=== PATIENT | male | born 1970 | race Caucasian/White ===

== ENCOUNTER → 2018-06-21 08:41 | Outpatient (CLI) | payer BC, SELFPAY ==
[2018-06-21 10:31] LABS: Hematocrit 45.1 % (40-54); Hemoglobin 15.2 g/dl (13.0-16.5); Mean Corp Hgb Conc 33.7 g/gl (32-36); Mean Corpuscular Volume 91.9 fL (80-94); Mean Platelet Vol. 9.6 fl (6.2-12.0); Platelet Count 242 K/mm3 (150-450); RBC Distribution Width CV 12.1 % (11.6-14.6); RBC Distribution Width SD 39.8 fl (35.1-43.9); Red Blood Count 4.91 M/mm3 (4.6-6.2); White Blood Count 8.8 K/mm3 (4.4-11.0)
[2018-06-21 10:33] LABS: Scan Indicated on CBC? Y/N NO
[2018-06-21 10:46] LABS: Microalbumin:Creatinine Ratio 41.1 mg/g CRE (<30 mg/g CRE)
[2018-06-21 11:15] LABS: ALB/GLOB Ratio 1.1 RATIO (0.9-2.4); AST(SGOT) 29 U/L (15-37); Alanine Aminotransfer ALT/SGPT 36 U/L (16-61); Albumin, Serum 4.1 g/dL (3.2-5.0); Alkaline Phosphatase 100 U/L (45-117); Anion Gap 14 (5-15); BUN 15 mg/dL (7-18); BUN/Creat Ratio 15.1 RATIO (10-20); Calcium,Total 9.4 mg/dL (8.5-10.1); Chloride 104 mmol/L (98-107); Cholesterol 182 mg/dL (200); EST Glomerular Filtration Rate 85 mL/min (>60); Est Glom Filt Rate - Afr Amer 103 mL/min (>60); Globulin 3.7 g/dL (2.2-4.2); Glucose 96 mg/dL (74-106); High Density Lipoprotein 63 mg/dL; Potassium 3.8 mmol/L (3.5-5.1); Protein, Total 7.8 g/dL (6.4-8.2); Sodium Level 140 mmol/L (136-145); Thyroid Stim Hormone (TSH) 3.14 uIU/mL (0.358-3.74); Triglycerides 172 mg/dL; Very Low Density Lipoprotein 34 mg/dL (5-40)
== END ==
PROVIDERS: Family Provider Family Medicine; PCP Family Medicine; Visit Provider Family Medicine
DX: D75.1 Secondary polycythemia (principal); E78.00 Pure hypercholesterolemia, unspecified; I10 Essential (primary) hypertension
CPT/HCPCS: 36415; 80053; 80061; 82043; 82570; 84443; 85027

== ENCOUNTER → 2020-05-23 | Outpatient (CLI) | payer OTHER, SELFPAY | END | disposition home or self-care (01) | LOC: LABSPEC 16:05 | PROVIDERS: PCP Family Medicine; Visit Provider Family Medicine | DX: Z20.822 Contact with and (suspected) exposure to COVID-19 (principal) | CPT/HCPCS: 87635; U0005; U0003 ==

== ENCOUNTER → 2020-06-15 09:23 | Outpatient (CLI) | payer OTHER, SELFPAY ==
[2020-06-15 12:51] LABS: ALB/GLOB Ratio 0.9 RATIO (0.9-2.4); AST(SGOT) 19 U/L (15-37); Alanine Aminotransfer ALT/SGPT 29 U/L (16-61); Albumin, Serum 3.5 g/dL (3.2-5.0); Alkaline Phosphatase 136 U/L (45-117); Anion Gap 10 (5-15); BUN 14 mg/dL (7-18); Calcium,Total 9.1 mg/dL (8.5-10.1); Chloride 104 mmol/L (98-107); Creatinine, Serum 0.93 mg/dL (0.70-1.30); EST Glomerular Filtration Rate 91 mL/min (>60); Est Glom Filt Rate - Afr Amer 111 mL/min (>60); Globulin 3.9 g/dL (2.2-4.2); Glucose 112 mg/dL (74-106); PSA,Total - Annual Screen 0.78 ng/mL (0.00-4.00); Potassium 3.8 mmol/L (3.5-5.1); Protein, Total 7.4 g/dL (6.4-8.2); Sodium Level 136 mmol/L (136-145)
[2020-06-15 12:58] LABS: Microalbumin,Random Urine 22.9 mg/L (NO RANGE EST.); Microalbumin:Creatinine Ratio 6.1 mg/g CRE (<30 mg/g CRE)
== END ==
PROVIDERS: PCP Family Medicine; Referring Provider Family Medicine; Visit Provider Family Medicine
DX: I10 Essential (primary) hypertension (principal); Z12.5 Encounter for screening for malignant neoplasm of prostate
CPT/HCPCS: 36415; 80053; 82043; 82570; 84153; G0103

== ENCOUNTER 2020-07-06 12:30 | Outpatient (RCR) | payer OTHER, SELFPAY ==
--- NOTE | 2020-06-26 11:04 | HP.PTEVAL_ITS ---
Patient's Visit Information LISBET MAYER is a 49 year old M referred to Physical Therapy by Dr. Jovanny Gillette MD with a diagnosis of R RC tendonitis (acute). Date of Evaluation: 06/26/20 Physical Therapist: AUBREY Escobedo - Visit Plan Frequency: 2x /Week Duration: 2 Months Plan: 2X/ week for 8 weeks for R shoulder PROm, AAROM, AROM, RC and scapular strengthening, postural exercises, with HEP and modalities as needed with HEP. 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 He can not pinpoint what happened but is progressivly getting worse. Heavy lifting increases pain, washing his hair. Sleeping increases his pain, he sleeps on back and side and tries not to lay on it. It hurts constantly.... it is sharp pain and dull pain. He has no N&T. He has not taken meds for it other than IBPROF. No images were done. He is R handed. He works at [employer]....and it is affecting what he does there. Pt had a RC repair in 2006 via arthoscopic surgery. 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 R shoulder AROM: flexion approx 80 degrees, abd approx 120 degrees ( both motions were painful), R PSIS, ER 29. L shoulder AROML SHLD flex/abd WFL, IR T8, ER 39. PROM R flexion to about 150 degrees, and abd to about 170 degrees, IR increase pain at end range and no pain with full ER. R shld MMT: flex 3-/5, abd 3-/4, ER 3-/5, IR 4/5 and L shld MMT WFL - Goals Goal 1:: I HEP Goal Time Frame: 6-8 Weeks Goal 2:: Increase R shoulder AROM to 160 degrees elvation and L4 IR (at time of eval: R shoulder AROM: flexion approx 80 degrees, abd approx 120 degrees ( both motions were painful), R PSIS, ER 29). Goal Time Frame: 6-8 Weeks Goal 3:: Increase R shoulder strength by 1/2 muscle grade (at time of eval: R shld MMT: flex 3-/5, abd 3-/4, ER 3-/5, IR 4/5). Goal Time Frame: 6-8 Weeks Goal 4:: Decrease R shoulder pain to less than 2/10 on daily basis with work and ADL's Goal Time Frame: 6-8 Weeks - Rehabilitation Potential Rehabilitation Potential: Good - Anticipated Interventions Patient/Client Instruction: Educate patient on: Condition, Plan of Care For the Purpose of:: To decrease pain, To decrease swelling/inflammation, To increase ROM, To improve nutrient delivery to tissue, To improve muscle performance and motor function, To improve ability to perform ADL's, To increase tolerance to activity/condition/position, To improve performance and independence with ADL's, To improve ability of physical actions for home/community/work/leisure, To improve health of tissue, To decrease soft tissue restriction, To increase flexibility/ROM Therapeutic Exercise to Include: Strength training, Postural training, Flexibilty training, Passive ROM, Active ROM, Scapular Strength/Stabilization For the Purpose of:: To decrease pain, To increase ROM, To improve nutrient delivery to tissue, To improve muscle performance and motor function, To improve ability to perform ADL's, To increase tolerance to activity/condition/position, To improve performance and independence with ADL's, To decrease level of supervision to perform tasks, To improve health of tissue, To decrease soft tissue restriction, To increase flexibility/ROM Manual Therapy Techniques to Include: Passive ROM, Soft tissue mobilization For the Purpose of:: To decrease pain, To increase ROM, To improve nutrient delivery to tissue, To improve muscle performance and motor function, To increase tolerance to activity/condition/position, To improve health of tissue, To decrease soft tissue restriction, To increase flexibility/ROM IF ES: Yes Cryotherapy (ice pack, ice massage): Yes Thermo therapy (hot pack): Yes Ultrasound (thermal/non thermal): Yes For the Purpose of:: To decrease pain, To increase ROM, To improve nutrient delivery to tissue Thank you for the opportunity to evaluate your patient. For Medicare and Medicare HMO plans, please review the plan of care and approve it. It will need to be FAXED BACK to us at [phone] for Medicare purposes. For Medicare only, by signing this I certify the plan of care. Please let me know if there are questions or concerns regarding this plan of care. Physician Signature: Date:
--- NOTE | 2021-01-25 09:48 | HP.PT.NRP ---
LISBET MAYER was seen in my office for initial evaluation on 06/26/20. The following Plan of Care was established for this patient: Initial Frequency: 2x /Week Initial Duration: 2 Months Patient/Client Instruction: Educate patient on: Condition, Plan of Care For the Purpose of:: To decrease pain, To decrease swelling/inflammation, To increase ROM, To improve nutrient delivery to tissue, To improve muscle performance and motor function, To improve ability to perform ADL's, To increase tolerance to activity/condition/position, To improve performance and independence with ADL's, To improve ability of physical actions for home/community/work/leisure, To improve health of tissue, To decrease soft tissue restriction, To increase flexibility/ROM Therapeutic Exercise to Include: Strength training, Postural training, Flexibilty training, Passive ROM, Active ROM, Scapular Strength/Stabilization For the Purpose of:: To decrease pain, To increase ROM, To improve nutrient delivery to tissue, To improve muscle performance and motor function, To improve ability to perform ADL's, To increase tolerance to activity/condition/position, To improve performance and independence with ADL's, To decrease level of supervision to perform tasks, To improve health of tissue, To decrease soft tissue restriction, To increase flexibility/ROM Manual Therapy Techniques to Include: Passive ROM, Soft tissue mobilization For the Purpose of:: To decrease pain, To increase ROM, To improve nutrient delivery to tissue, To improve muscle performance and motor function, To increase tolerance to activity/condition/position, To improve health of tissue, To decrease soft tissue restriction, To increase flexibility/ROM IF ES: Yes Cryotherapy (ice pack, ice massage): Yes Thermo therapy (hot pack): Yes Ultrasound (thermal/non thermal): Yes For the Purpose of:: To decrease pain, To increase ROM, To improve nutrient delivery to tissue This patient was last seen in our office 07/06/20. Pertinent comments regarding their Physical therapy will appear below: ISIDRO PT as pt cancelled his last couple of appointments At this point I will be discontinuing this patient from physical therapy. I would be happy to see this patient again in the future if found appropriate by the physician. Thank you! Yari Taylor, MPT Balance/Gait/Functional tests - Balance/Special Test Scores Quick DASH Score: [phone]
== END 2020-07-06 19:00 | disposition home or self-care (01) ==
LOC: PT 12:30
PROVIDERS: PCP Family Medicine; Referring Provider Family Medicine; Visit Provider Family Medicine
DX: M75.81 Other shoulder lesions, right shoulder (principal)
CPT/HCPCS: 97014; 97035; 97110; 97161; G0283

== ENCOUNTER → 2020-07-11 09:33 | Outpatient (CLI) | payer OTHER, SELFPAY ==
[2020-07-11 12:40] LABS: Erythrocyte Sedimentation Rate 48 mm/hr (0-20)
[2020-07-11 12:44] LABS: Absolute Lymphocyte Count 1.44 X10^3/uL (0.83-4.51); Absolute Neutrophil Count 6.8 X10^3/uL (2.0-7.7); Basophil# 0.03 X10^3/uL; Basophil% 0.3 % (0-1); Hematocrit 41.7 % (40-54); Hemoglobin 13.8 g/dL (13.0-16.5); Lymphocyte # 1.44 X10^3/ul (4.0); Lymphocyte % 15.8 % (19-41); Mean Corp Hgb Conc 33.1 g/dL (32-36); Mean Corpuscular Hgb 29.4 pg (27.0-32.0); Mean Corpuscular Volume 88.7 fL (80-94); Mean Platelet Vol. 9.1 fl (6.2-12.0); Monocyte# 0.85 X10^3/uL; Monocyte% 9.3 % (0-10); NRBC Flagged by Analyzer 0 % (0-5); Neutrophil # 6.78 X10^3/uL (2.7-7.7); Neutrophil % 74.3 % (47-70); Platelet Count 332 K/mm3 (150-450); RBC Distribution Width CV 11.5 % (11.6-14.6); RBC Distribution Width SD 37.2 fl (35.1-43.9); White Blood Count 9.1 K/mm3 (4.4-11.0)
[2020-07-11 12:56] LABS: Rheumatoid Factor < 10.0 IU/mL (<15)
[2020-07-11 14:42] LABS: CPK Total, Creatine Kinase 330 U/L (39-308)
[2020-07-12 20:10] LABS: Anti-Centromere B Ab <0.2 AI (0.0-0.9); Anti-Chromatin <0.2 AI (0.0-0.9); Anti-Jo <0.2 AI (0.0-0.9); Anti-Scleroderma-70 AB <0.2 AI (0.0-0.9); RNP Ab 0.6 AI (0.0-0.9); SJOGREN'S Anti-SS-A test < 0.2 AI (0.0-0.9); SJOGREN'S Anti-SS-B test < 0.2 AI (0.0-0.9); Smith Ab <0.2 AI (0.0-0.9)
[2020-07-13 16:34] LABS: Anti-dsDNA Ab 8 IU/mL (0-9)
== END ==
PROVIDERS: PCP Family Medicine; Referring Provider Family Medicine; Visit Provider Family Medicine
DX: M25.511 Pain in right shoulder (principal); M25.512 Pain in left shoulder
CPT/HCPCS: 36415; 82550; 85025; 85652; 86038; 86140; 86225; 86235; 86431

== ENCOUNTER → 2020-07-17 15:18 | Outpatient (CLI) | payer OTHER, SELFPAY ==
[2020-07-17 15:21] LABS: Lyme Ab Screen Interpretation REF LAB
[2020-07-17 17:46] LABS: Absolute Neutrophil Count 6.3 X10^3/uL (2.0-7.7); Basophil# 0.05 X10^3/uL; Basophil% 0.5 % (0-1); Eosinophil# 0.36 X10^3/uL; Eosinophils% 3.3 % (0-5); Hematocrit 45.2 % (40-54); Hemoglobin 14.6 g/dL (13.0-16.5); Lymphocyte % 26.3 % (19-41); Mean Corp Hgb Conc 32.3 g/dL (32-36); Mean Corpuscular Hgb 28.7 pg (27.0-32.0); Mean Platelet Vol. 9.1 fl (6.2-12.0); Monocyte# 1.32 X10^3/uL; NRBC Flagged by Analyzer 0 % (0-5); Neutrophil # 6.33 X10^3/uL (2.7-7.7); Neutrophil % 57.3 % (47-70); Platelet Count 332 K/mm3 (150-450); RBC Distribution Width CV 11.9 % (11.6-14.6); RBC Distribution Width SD 38.6 fl (35.1-43.9); Red Blood Count 5.08 M/mm3 (4.6-6.2)
[2020-07-17 17:56] LABS: Erythrocyte Sedimentation Rate 29 mm/hr (0-20)
[2020-07-17 18:20] LABS: CPK Total, Creatine Kinase 199 U/L (39-308)
[2020-07-18 08:41] LABS: PTHIN 33.2 pg/mL (18.4-80.1)
[2020-07-19 14:43] LABS: ANTINUCLEAR ANTIBODIES DIRECT Negative (Negative)
[2020-07-20 16:09] LABS: PROEL- Albumin 3.5 g/dL (2.9-4.4); PROEL- Alpha-1 Globulin 0.3 g/dL (0.0-0.4); PROEL- Alpha-2 Globulin 1.2 g/dL (0.4-1.0); PROEL- Gamma Globulin 1.1 g/dL (0.4-1.8); PROEL- Globulin, Total 3.6 g/dL (2.2-3.9); PROEL- TOTAL PROTEIN 7.1 g/dL (6.0-8.5); PROELU- Albumin, Urine 39.1 % (.); PROELU- Alpha-1-Globulin,Ur 2.8 % (.); PROELU- Alpha-2-Globulin,Ur 17.8 % (.); PROELU- Beta Globulin, Ur 23.5 % (.); PROELU- Gamma Globulin, Ur 16.8 % (.); Total Protein, Ur 6.1 mg/dL (Not Estab.)
[2020-07-20 21:41] LABS: Aldolase 5.8 U/L (3.3-10.3); Lyme Scn Total Ab w/Rflx <0.91 ISR (0.00-0.90)
== END ==
PROVIDERS: PCP Family Medicine; Visit Provider Family Medicine
DX: M25.50 Pain in unspecified joint (principal); R79.82 Elevated C-reactive protein (CRP); R74.8 Abnormal levels of other serum enzymes
CPT/HCPCS: 36415; 82085; 82550; 83970; 84165; 84166; 85025; 85652; 86038; 86140; 86618

== ENCOUNTER → 2020-10-24 13:21 | Outpatient (CLI) | payer OTHER, SELFPAY ==
--- NOTE | 2020-10-24 13:25 | RAD_ITS ---
STUDY: X-RAY - PELVIS REASON FOR EXAM: Male, 50 years old. PAIN TECHNIQUE: One view of the pelvis was obtained. COMPARISON: None. FINDINGS: There is a non-specific bowel gas pattern. Normal visualized soft tissue structures. Normal bilateral iliac wings, sacroiliac joints and visualized sacrum. Normal visualized bilateral superior and inferior pubic rami. Normal pubic symphysis. Normal ischial tuberosities. Findings suggestive sclerosis of the right femoral head with the subchondral cystic changes. Normal right acetabulum. Normal right hip joint. Findings suggestive of atherosclerosis with small cystic changes in the subchondral region. Normal left acetabulum. Normal left hip joint. Avascular necrosis of both femoral head should be ruled out. RAD/Pelvis 1 or 2 Views IMPRESSION: Questionable avascular necrosis of both femoral heads as described. Electronically Signed: Alberto Zhong MD at 15:26 EDT , Service support ,
[2020-10-24 15:22] LABS: Absolute Lymphocyte Count 2.22 X10^3/uL (0.83-4.51); Absolute Neutrophil Count 6.2 X10^3/uL (2.0-7.7); Basophil# 0.05 X10^3/uL; Basophil% 0.5 % (0-1); Eosinophil# 0.04 X10^3/uL; Eosinophils% 0.4 % (0-5); Hematocrit 44.8 % (40-54); Hemoglobin 14.7 g/dL (13.0-16.5); Lymphocyte # 2.22 X10^3/ul (0.83-4.51); Lymphocyte % 23.6 % (19-41); Mean Corp Hgb Conc 32.8 g/dL (32-36); Mean Corpuscular Hgb 29.3 pg (27.0-32.0); Mean Corpuscular Volume 89.4 fL (80-94); Mean Platelet Vol. 9.4 fl (6.2-12.0); Monocyte# 0.89 X10^3/uL; Monocyte% 9.4 % (0-10); NRBC Flagged by Analyzer 0 % (0-5); Neutrophil # 6.17 X10^3/uL (2.7-7.7); Neutrophil % 65.6 % (47-70); Platelet Count 252 K/mm3 (150-450); RBC Distribution Width CV 13.3 % (11.6-14.6); RBC Distribution Width SD 43.7 fl (35.1-43.9); Red Blood Count 5.01 M/mm3 (4.6-6.2); White Blood Count 9.4 K/mm3 (4.4-11.0)
[2020-10-24 15:36] LABS: ALB/GLOB Ratio 0.9 RATIO (0.9-2.4); AST(SGOT) 39 U/L (15-37); Alanine Aminotransfer ALT/SGPT 61 U/L (16-61); Albumin, Serum 3.7 g/dL (3.2-5.0); Alkaline Phosphatase 83 U/L (45-117); Anion Gap 5 (5-15); BUN 18 mg/dL (7-18); Calcium,Total 9.1 mg/dL (8.5-10.1); Chloride 107 mmol/L (98-107); Creatinine, Serum 0.86 mg/dL (0.70-1.30); EST Glomerular Filtration Rate 100 mL/min (>60); Est Glom Filt Rate - Afr Amer 121 mL/min (>60); Globulin 3.9 g/dL (2.2-4.2); Glucose 103 mg/dL (74-106); Potassium 4.3 mmol/L (3.5-5.1); Protein, Total 7.6 g/dL (6.4-8.2); Rheumatoid Factor < 10.0 IU/mL (<15); Sodium Level 140 mmol/L (136-145)
[2020-10-25 08:21] LABS: Hepatitis B Surface Antibody Reactive; Hepatitis B Surface Antigen Non-Reactive (Nonreactive); Hepatitis C Antibody Non-Reactive (Nonreactive)
[2020-10-27 14:57] LABS: CCP IgG Antibodies 5 units (0-19)
== END ==
PROVIDERS: PCP Family Medicine; Referring Provider Internal Medicine Rheumatology; Visit Provider Internal Medicine Rheumatology
DX: M06.4 Inflammatory polyarthropathy (principal); M21.41 Flat foot [pes planus] (acquired), right foot; I10 Essential (primary) hypertension; E78.5 Hyperlipidemia, unspecified; T84.89XA Other specified complication of internal orthopedic prosthetic devices, implants and grafts, initial encounter
CPT/HCPCS: 36415; 72170; 80053; 85025; 86200; 86431; 86706; 86803; 87340

== ENCOUNTER → 2020-11-05 09:41 | Outpatient (CLI) | payer OTHER, SELFPAY ==
--- NOTE | 2020-11-05 09:49 | US_ITS ---
STUDY: ABDOMINAL ULTRASOUND - RIGHT UPPER QUADRANT REASON FOR VISIT: Male, 50 years old ELEVATED LIVER ENZYMES TECHNIQUE: Ultrasound evaluation of the right upper quadrant was performed with real-time and static stack-scale imaging. TECHNICAL QUALITY: Adequate. COMPARISON: None. FINDINGS: Liver: The liver measures 13.7 cm. There is increased echogenicity consistent with fatty infiltration. The bile ducts are within normal limits. There is hepatic color flow. The direction of portal flow is hepatopetal. There is no demonstrated mass lesion. Gallbladder: There is a contracted stone filled gallbladder. The gallbladder wall measures 4 mm. There is a negative sonographic Foley''s sign. There is no pericholecystic fluid. There are multiple echogenic structures within the gallbladder, consistent with multiple gallstones. Common Bile Duct (C.B.D.): The common bile duct measures 3 mm. Pancreas: Normal size of the head, body and tail of the pancreas. There is increased echogenicity of the pancreas. There is no demonstrated pancreatic mass or cyst. Right Kidney: Normal size of the right kidney. The right kidney measures 10.8 cm x 5.7 cm x 6 cm. Normal renal cortex. The right cortex measures 1.5 cm. There is no demonstrated renal mass or cyst. There is no right hydronephrosis. US/Liver IMPRESSION: Contracted stone filled gallbladder. Fatty infiltration of the liver. Electronically Signed: Alberto Zhong MD at 11:00 EDT , Service support ,
== END ==
PROVIDERS: PCP Family Medicine; Referring Provider Internal Medicine Rheumatology; Visit Provider Internal Medicine Rheumatology
DX: M06.4 Inflammatory polyarthropathy (principal); M21.41 Flat foot [pes planus] (acquired), right foot; I10 Essential (primary) hypertension; E78.5 Hyperlipidemia, unspecified; T84.89XA Other specified complication of internal orthopedic prosthetic devices, implants and grafts, initial encounter
CPT/HCPCS: 76705

== ENCOUNTER 2020-11-30 08:07 | Emergency (ER) | payer OTHER, SELFPAY ==
[2020-11-30 08:08] VITALS: BP 138/104; PULSE 101; RESP 19; TEMP 36.4; O2SAT 98; BMI 34.7
--- NOTE | 2020-11-30 08:41 | EDS_ITS ---
HPI History of Present Illness Chief Complaint: Shortness of Breath Narrative Narrative: Patient has been taking hydroxychloroquine for about 3 weeks for arthritis that is thought is probably rheumatoid arthritis. He is also been taking prednisone in that amount of time because the hydroxychloroquine has not started working yet, and since he has been on these medications he has felt like he has been short of breath off and on, he has history of asthma so he has been trying his inhaler and it has been responding. 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 Now that he is remaining still, lying on the bed prone, his breathing feels fine and he is less dizzy. He is having some chest soreness only when he takes deep breaths, but states he can palpated in his chest and he has been doing a lot of work and states that it feels like muscle soreness. No history of DVT or PE, no recent leg pain or swelling, recent immobilization or surgery/hospitalization. No recent illness. Chronic tinnitus both ears, no changes in that. [facility] Medical History Asthma GERD (gastroesophageal reflux disease) Hyperlipidemia Hypertension Obesity Obstructive sleep apnea Home Medications albuterol sulfate 90 mcg/actuation aerosol inhaler 2 puff INHALATION Q6H 07/23/17 [History Last Taken Unknown] fluticasone propionate 220 mcg/actuation HFA aerosol inhaler 1 puff INHALATION BID 07/23/17 [History Last Taken Unknown] losartan 100 mg tablet 100 mg PO QDAY 07/23/17 [History Last Taken Unknown] atorvastatin 20 mg tablet 20 mg PO QHS #90 tab 08/29/20 [Rx Last Taken Unknown] hydroxychloroquine 200 mg PO BID 11/30/20 [History Last Taken Unknown] meclizine 25 mg PO TID #20 tab 11/30/20 [Rx Last Taken Unknown] prednisone 10 mg PO DAILY 11/30/20 [History Last Taken Unknown] Allergy/AdvReac Type Severity Reaction Status Date / Time No Known Allergies Allergy Unverified 11/30/20 08:08 Family History (Updated 07/23/17 @ 09:41 by Neetu Moss) Father CAD (coronary artery disease) PCI-Stent late 50's Mother Colon cancer Surgical History H/O repair of right rotator cuff History of repair of anterior cruciate ligament of left knee Social History Smoking Status: Never smoker Smokeless tobacco user: snuff alcohol intake: current alcohol intake frequency: 3 or more drinks per day Alcohol type: beer ROS ROS ED Constitutional Constitutional ED: Denies chills or fever(s) Eyes Eyes: Denies change in vision or diplopia ENT ENT ED: Reports tinnitus; Denies ear pain, rhinorrhea or sore throat Cardiovascular Cardiovascular: Reports as per HPI and chest pain; Denies palpitations Respiratory/Chest Respiratory/Chest: Reports dyspnea; Denies cough Gastrointestinal Gastrointestinal: Denies abdominal pain, diarrhea, nausea or vomiting Genitourinary Genitourinary ED: Denies dysuria or hematuria Musculoskeletal Musculoskeletal: Reports joint pain; Denies back pain or neck pain Integumentary Denies abscess or rash Neurologic Neurologic: Reports vertigo; Denies headache(s), paresthesias or weakness Psychiatric Psychiatric: Denies anxiety or suicidal thoughts EXAM Physical Exam Const Vital Signs: 11/30/20 08:08 Temperature 97.5 F L Temperature Source Temporal Pulse Rate 101 H Respiratory Rate 19 H Blood Pressure 138/104 H Blood Pressure Mean 115 Pulse Ox 98 Oxygen Delivery Method Room Air Positive well nourished and well developed General Appearance ED: well developed and NAD HEENT Reports moist mucous membranes HEENT Narrative: Both TMs occluded by cerumen normocephalic and atraumatic Eyes PERRL and EOMs intact bilaterally Eyes Narrative: No horizontal nonfatigable or vertical or rotatory nystagmus. Neck full ROM and supple Chest Wall inspection of chest normal Chest Narrative: Mildly tender bilaterally parasternal Resp normal respiratory effort and clear to auscultation bilaterally Cardio regular rate, regular rhythm and no murmurs GI non-tender and non-distended Auscultation: normoactive bowel sounds Palpation: soft Back/Spine no CVA tenderness General Back: other FROM Extremity normal to inspection and no calf tenderness General Extremety ED: Negative for edema, pulses abnormal or tenderness General Extremity: Negative for edema or pulses abnormal Neuro oriented x3, CN's II-XII intact bilaterally and no sensory deficits noted Sensorium / Orientation: awake and alert Motor Exam: strength 5/5 throughout Skin no rashes or lesions noted and no wounds MDM MDM MDM Narrative Medical decision making narrative: Patient is at low risk for pulmonary embolus/DVT, nor does he clinically appear to have a DVT, but he was mildly tachycardic upon triage although he is less on my exam, so D-dimer was obtained in addition to other work-up, and he was given meclizine for what sounds like peripheral vertigo. This helped significantly. He was able to get up turn his head both directions, walk down the hallway, he was not dyspneic nor vertiginous and felt much better. He is wondering if this is all side effect from the hydroxychloroquine. 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 For now will prescribe him meclizine to use as needed, and will also give him otolaryngology for follow-up if it persists and increased in severity. I do not think this is central in origin, so I did not think a CT was indicated. Lab Data Attestation: I reviewed the patient's lab results. Labs: Laboratory Results - last 24 hr 11/30/20 11/30/20 11/30/20 09:10 09:10 09:10 WBC 8.7 RBC 4.84 Hgb 14.5 Hct 42.9 MCV 88.6 MCH 30.0 MCHC 33.8 RDW Std Deviation 41.3 RDW Coeff of Travis 12.7 Plt Count 217 MPV 9.0 Immature Gran % (Auto) 0.500 Neut % (Auto) 82.3 H Lymph % (Auto) 11.1 L [place] % (Auto) 5.4 Eos % (Auto) 0.2 Baso % (Auto) 0.5 Absolute Neuts (auto) 7.1 Absolute Lymphs (auto) 0.96 Nucleated RBC % 0 D-Dimer Quant (PE/DVT) 0.42 Sodium 137 Potassium 4.2 Chloride 105 Carbon Dioxide 23.0 Anion Gap 9 BUN 16 Creatinine 0.83 Estim Creat Clear Calc 96.08 Est GFR (MDRD) Af Amer 126 Est GFR (MDRD) Non-Af 105 BUN/Creatinine Ratio 19.3 Glucose 101 Calcium 9.1 Troponin I High Sens 21.0 Radiography Diagnostic Testing: Radiology Impression Chest X-Ray 11/30/20 09:07 IMPRESSION: Normal x-ray examination of the chest. Electronically Signed: Alberto Zhong MD at 9:25 EDT , Service support , Discharge Plan Triage Chief Complaint: Shortness of Breath ED Provider: Ajit Carlson Dx/Rx/DC Orders Clinical Impression: Episodic peripheral vertigo, Acute dyspnea, Arthritis Instructions: ED Vertigo, Unspecified Prescriptions: New meclizine [meclizine] 25 MG tablet 25 mg PO TID Qty: 20 RF: 0 No Action albuterol sulfate [ProAir HFA] 90 mcg/actuation HFA aerosol inhaler 2 puff INHALATION Q6H RF: 0 fluticasone propionate [Flovent HFA] 220 mcg/actuation HFA aerosol inhaler 1 puff INHALATION BID RF: 0 losartan 100 mg tablet 100 mg PO QDAY RF: 0 prednisone 10 mg tablet 10 mg PO DAILY RF: 0 hydroxychloroquine 200 mg tablet 200 mg PO BID RF: 0 atorvastatin 20 mg tablet 20 mg PO QHS Qty: 90 RF: 3 Primary Care Provider: Jovanny Gillette Referrals: Distribution Center Administrator, your [Other] (Call for discussion concerning your hydroxychloroquine) Dillan Lofton MD [STAFF PHYSICIAN] - 1 Week if not improving (For vertigo; may also try diluted hydrogen peroxide drops to your ears twice daily to help soften and remove wax) Jovanny Gillette MD [Primary Care Provider] - Disposition Disposition: Home, Self Care
--- NOTE | 2020-11-30 08:41 | EKG12_ITS ---
Test Reason : SOB Blood Pressure : / mmHG Vent. Rate : 091 BPM Atrial Rate : 091 BPM P-R Int : 152 ms QRS Dur : 082 ms QT Int : 356 ms P-R-T Axes : 046 -30 067 degrees QTc Int : 437 ms Normal sinus rhythm Left axis deviation Abnormal ECG Confirmed by ANGEL ROSALES, VAN ([id number]), sound editor ISATU LEVY ([id number]) on 12/04/2020 10:16:44 AM Referred By: CARLA Confirmed By:VAN ORTIZ MD
--- NOTE | 2020-11-30 09:07 | RAD_ITS ---
STUDY: X-RAY CHEST REASON FOR EXAM: Male, 50 years old. Sob TECHNIQUE: Single AP portable view of the chest. COMPARISON: Comparison is made with prior examination dated 02/02/2011. FINDINGS: The lungs are clear and expanded. There is no demonstrated pleural abnormality. Normal size heart. Normal mediastinum and bernadette. Normal visualized pulmonary arteries. Normal visualized aortic arch and descending thoracic aorta. Normal visualized thoracic spine. Normal visualized ribs, clavicles, and shoulders. There is no demonstrated abnormality of the visualized soft tissue structures of the upper abdomen. RAD/Chest 1 View (Portable) IMPRESSION: Normal x-ray examination of the chest. Electronically Signed: Alberto Zhong MD at 9:25 EDT , Service support ,
[2020-11-30] MEDS: Meclizine HCl 25 MG Tablet PO (09:12)
[2020-11-30 09:20] LABS: Absolute Lymphocyte Count 0.96 X10^3/uL (0.83-4.51); Absolute Neutrophil Count 7.1 X10^3/uL (2.0-7.7); Basophil# 0.04 X10^3/uL; Basophil% 0.5 % (0-1); Eosinophil# 0.02 X10^3/uL; Eosinophils% 0.2 % (0-5); Hematocrit 42.9 % (40-54); Hemoglobin 14.5 g/dL (13.0-16.5); Lymphocyte # 0.96 X10^3/ul (0.83-4.51); Lymphocyte % 11.1 % (19-41); Mean Corp Hgb Conc 33.8 g/dL (32-36); Mean Corpuscular Volume 88.6 fL (80-94); Monocyte# 0.47 X10^3/uL; Monocyte% 5.4 % (0-10); NRBC Flagged by Analyzer 0 % (0-5); Neutrophil # 7.12 X10^3/uL (2.7-7.7); Neutrophil % 82.3 % (47-70); Platelet Count 217 K/mm3 (150-450); RBC Distribution Width CV 12.7 % (11.6-14.6); RBC Distribution Width SD 41.3 fl (35.1-43.9); Red Blood Count 4.84 M/mm3 (4.6-6.2); White Blood Count 8.7 K/mm3 (4.4-11.0)
[2020-11-30 09:34] LABS: D-Dimer Quantitative (DVT/PE) 0.42 FEU/ug/m (0.27-0.49)
[2020-11-30 09:35] LABS: Anion Gap 9 (5-15); BUN 16 mg/dL (7-18); BUN/Creat Ratio 19.3 RATIO (10-20); Calcium,Total 9.1 mg/dL (8.5-10.1); Chloride 105 mmol/L (98-107); Creatinine, Serum 0.83 mg/dL (0.70-1.30); EST Glomerular Filtration Rate 105 mL/min (>60); Est Glom Filt Rate - Afr Amer 126 mL/min (>60); Estimated Creatinine Clearance 96.08 ml/min; Glucose 101 mg/dL (74-106); Potassium 4.2 mmol/L (3.5-5.1); Sodium Level 137 mmol/L (136-145)
== END 2020-11-30 10:45 | disposition home or self-care (01) ==
PROVIDERS: Emergency Provider Emergency Medicine; PCP Family Medicine
DX: H81.399 Other peripheral vertigo, unspecified ear (principal); R06.00 Dyspnea, unspecified; J45.909 Unspecified asthma, uncomplicated; K21.9 Gastro-esophageal reflux disease without esophagitis; E78.5 Hyperlipidemia, unspecified; I10 Essential (primary) hypertension; E66.9 Obesity, unspecified; Z79.52 Long term (current) use of systemic steroids; Z79.51 Long term (current) use of inhaled steroids; Z79.899 Other long term (current) drug therapy
CPT/HCPCS: 71045; 80048; 84484; 85025; 85379; 93005; 99283; A4216

== ENCOUNTER → 2020-12-27 13:21 | Outpatient (CLI) | payer OTHER, SELFPAY ==
[2020-12-27 15:59] LABS: AST(SGOT) 28 U/L (15-37); Alanine Aminotransfer ALT/SGPT 46 U/L (16-61); Albumin, Serum 3.8 g/dL (3.2-5.0); Alkaline Phosphatase 62 U/L (45-117); Anion Gap 6 (5-15); BUN 15 mg/dL (7-18); BUN/Creat Ratio 19.5 RATIO (10-20); Calcium,Total 9.2 mg/dL (8.5-10.1); Chloride 110 mmol/L (98-107); Creatinine, Serum 0.77 mg/dL (0.70-1.30); EST Glomerular Filtration Rate 113 mL/min (>60); Est Glom Filt Rate - Afr Amer 137 mL/min (>60); Globulin 3.7 g/dL (2.2-4.2); Glucose 111 mg/dL (74-106); Potassium 4.2 mmol/L (3.5-5.1); Protein, Total 7.5 g/dL (6.4-8.2); Sodium Level 142 mmol/L (136-145)
== END ==
PROVIDERS: PCP Family Medicine; Referring Provider Internal Medicine Rheumatology; Visit Provider Internal Medicine Rheumatology
DX: M06.4 Inflammatory polyarthropathy (principal); M21.41 Flat foot [pes planus] (acquired), right foot; T84.89XA Other specified complication of internal orthopedic prosthetic devices, implants and grafts, initial encounter; S46.211A Strain of muscle, fascia and tendon of other parts of biceps, right arm, initial encounter; K76.0 Fatty (change of) liver, not elsewhere classified; I10 Essential (primary) hypertension; E78.5 Hyperlipidemia, unspecified; Z79.899 Other long term (current) drug therapy; X58.XXXA Exposure to other specified factors, initial encounter; Y93.9 Activity, unspecified; Y92.9 Unspecified place or not applicable; Y99.9 Unspecified external cause status
CPT/HCPCS: 36415; 80053; 86480

== ENCOUNTER → 2021-01-28 | Outpatient (CLI) | payer OTHER, SELFPAY ==
[2021-01-31 20:08] LABS: QNTFERON TB Mitogen Value > 10.00 IU/mL (.); QNTFERON TB Nil Value 0.02 IU/mL (.); QNTFERON TB1+ Ag Value 0.05 IU/mL (.); QNTFERON TB2+ Ag Value 0.04 IU/mL (.)
[2021-01-31 21:09] LABS: QNTIFERON TB Positive Criteria Negative (Negative)
== END | disposition home or self-care (01) ==
LOC: MTLAB 08:13
PROVIDERS: PCP Family Medicine; Referring Provider Internal Medicine Rheumatology; Visit Provider Internal Medicine Rheumatology
DX: M06.09 Rheumatoid arthritis without rheumatoid factor, multiple sites (principal); M21.41 Flat foot [pes planus] (acquired), right foot; T84.89XA Other specified complication of internal orthopedic prosthetic devices, implants and grafts, initial encounter; S46.211A Strain of muscle, fascia and tendon of other parts of biceps, right arm, initial encounter; X58.XXXA Exposure to other specified factors, initial encounter; Y93.9 Activity, unspecified; Y92.9 Unspecified place or not applicable; Y99.9 Unspecified external cause status; K76.0 Fatty (change of) liver, not elsewhere classified; I10 Essential (primary) hypertension; E78.5 Hyperlipidemia, unspecified; Z79.899 Other long term (current) drug therapy
CPT/HCPCS: 86480

== ENCOUNTER → 2021-04-17 09:28 | Outpatient (CLI) | payer OTHER, SELFPAY ==
[2021-04-17 10:19] LABS: Absolute Lymphocyte Count 2.08 X10^3/uL (0.83-4.51); Absolute Neutrophil Count 7.1 X10^3/uL (2.0-7.7); Basophil# 0.04 X10^3/uL; Basophil% 0.4 % (0-1); Eosinophil# 0.04 X10^3/uL; Eosinophils% 0.4 % (0-5); Hematocrit 42.9 % (40-54); Hemoglobin 14.6 g/dL (13.0-16.5); Lymphocyte # 2.08 X10^3/ul (0.83-4.51); Lymphocyte % 20.8 % (19-41); Mean Corpuscular Hgb 30.7 pg (27.0-32.0); Mean Corpuscular Volume 90.1 fL (80-94); Mean Platelet Vol. 9.5 fl (6.2-12.0); Monocyte# 0.72 X10^3/uL; Monocyte% 7.2 % (0-10); NRBC Flagged by Analyzer 0 % (0-5); Neutrophil # 7.08 X10^3/uL (2.7-7.7); Neutrophil % 70.9 % (47-70); Platelet Count 257 K/mm3 (150-450); RBC Distribution Width CV 11.6 % (11.6-14.6); RBC Distribution Width SD 38.5 fl (35.1-43.9); Red Blood Count 4.76 M/mm3 (4.6-6.2)
[2021-04-17 11:05] LABS: AST(SGOT) 28 U/L (15-37); Alanine Aminotransfer ALT/SGPT 44 U/L (16-61); Albumin, Serum 3.9 g/dL (3.2-5.0); Alkaline Phosphatase 68 U/L (45-117); Anion Gap 9 (5-15); BUN 14 mg/dL (7-18); BUN/Creat Ratio 18.5 RATIO (10-20); Calcium,Total 9.5 mg/dL (8.5-10.1); Chloride 102 mmol/L (98-107); Creatinine, Serum 0.76 mg/dL (0.70-1.30); EST Glomerular Filtration Rate 116 mL/min (>60); Est Glom Filt Rate - Afr Amer 140 mL/min (>60); Globulin 3.9 g/dL (2.2-4.2); Glucose 96 mg/dL (74-106); Potassium 3.9 mmol/L (3.5-5.1); Protein, Total 7.8 g/dL (6.4-8.2); Sodium Level 137 mmol/L (136-145)
== END ==
PROVIDERS: PCP Family Medicine; Referring Provider Internal Medicine Rheumatology; Visit Provider Internal Medicine Rheumatology
DX: M06.09 Rheumatoid arthritis without rheumatoid factor, multiple sites (principal); M21.41 Flat foot [pes planus] (acquired), right foot; S46.211A Strain of muscle, fascia and tendon of other parts of biceps, right arm, initial encounter; K76.0 Fatty (change of) liver, not elsewhere classified; I10 Essential (primary) hypertension; E78.5 Hyperlipidemia, unspecified; T84.89XA Other specified complication of internal orthopedic prosthetic devices, implants and grafts, initial encounter; Z79.899 Other long term (current) drug therapy
CPT/HCPCS: 36415; 80053; 85025

== ENCOUNTER 2021-07-23 09:46 | Outpatient (CLI) | payer BC, SELFPAY ==
[2021-07-23 12:16] LABS: Absolute Lymphocyte Count 1.63 X10^3/uL (0.83-4.51); Absolute Neutrophil Count 8.6 X10^3/uL (2.0-7.7); Basophil# 0.04 X10^3/uL; Basophil% 0.4 % (0-1); Eosinophil# 0.05 X10^3/uL; Eosinophils% 0.5 % (0-5); Hematocrit 42.7 % (40-54); Hemoglobin 14.5 g/dL (13.0-16.5); Lymphocyte # 1.63 X10^3/ul (0.83-4.51); Lymphocyte % 14.8 % (19-41); Mean Corpuscular Hgb 30.7 pg (27.0-32.0); Mean Corpuscular Volume 90.5 fL (80-94); Mean Platelet Vol. 9.6 fl (6.2-12.0); Monocyte# 0.69 X10^3/uL; Monocyte% 6.3 % (0-10); NRBC Flagged by Analyzer 0 % (0-5); Neutrophil # 8.55 X10^3/uL (2.7-7.7); Neutrophil % 77.5 % (47-70); Platelet Count 263 K/mm3 (150-450); RBC Distribution Width CV 12.2 % (11.6-14.6); RBC Distribution Width SD 40.2 fl (35.1-43.9); Red Blood Count 4.72 M/mm3 (4.6-6.2)
[2021-07-23 12:39] LABS: AST(SGOT) 25 U/L (15-37); Alanine Aminotransfer ALT/SGPT 44 U/L (16-61); Albumin, Serum 3.9 g/dL (3.2-5.0); Alkaline Phosphatase 70 U/L (45-117); Anion Gap 5 (5-15); BUN 17 mg/dL (7-18); BUN/Creat Ratio 18.4 RATIO (10-20); Calcium,Total 9.2 mg/dL (8.5-10.1); Chloride 105 mmol/L (98-107); Creatinine, Serum 0.92 mg/dL (0.70-1.30); EST Glomerular Filtration Rate 92 mL/min (>60); Est Glom Filt Rate - Afr Amer 111 mL/min (>60); Globulin 4.1 g/dL (2.2-4.2); Glucose 169 mg/dL (74-106); Sodium Level 137 mmol/L (136-145)
== END 2021-07-23 23:59 | disposition home or self-care (01) ==
LOC: MTLAB 09:50
PROVIDERS: PCP Family Medicine; Referring Provider Internal Medicine Rheumatology; Visit Provider Internal Medicine Rheumatology
DX: M06.9 Rheumatoid arthritis, unspecified (principal); T84.89XA Other specified complication of internal orthopedic prosthetic devices, implants and grafts, initial encounter; M21.41 Flat foot [pes planus] (acquired), right foot; S46.211A Strain of muscle, fascia and tendon of other parts of biceps, right arm, initial encounter; K76.0 Fatty (change of) liver, not elsewhere classified; I10 Essential (primary) hypertension; E78.5 Hyperlipidemia, unspecified; Z79.899 Other long term (current) drug therapy
CPT/HCPCS: 36415; 80053; 85025

== ENCOUNTER 2021-09-05 20:33 | Inpatient (IN) | payer BC, SELFPAY ==
[2021-09-05 20:34] VITALS: BP 152/84; PULSE 85; RESP 16; TEMP 36.8; O2SAT 99; BMI 35.5
--- NOTE | 2021-09-05 20:46 | EDS_ITS ---
HPI History of Present Illness Chief Complaint: Abd Pain Informant: patient Narrative Narrative: 51-year-old male presenting to the emergency department with abdominal pain. Patient states that symptoms began today in his epigastrium and right upper quadrant around noon. This was about an hour and a half after he ate some beef stew. He describes it as constant and nauseating. No radiation to the right shoulder or flank. He had this pain a little bit yesterday and also on Thursday. He notes that it is associated about an hour and 1/2 to 2 hours after eating food. He states that he had a gallbladder ultrasound done about a year ago that showed cholelithiasis. He notes a history of rheumatoid arthritis hypercholesterolemia and hypertension. No reported fevers. No prior abdominal surgeries. No history of pancreatitis. PFSH PFS Medical History Asthma GERD (gastroesophageal reflux disease) Hyperlipidemia Hypertension Obesity Obstructive sleep apnea Home Medications albuterol sulfate 90 mcg/actuation aerosol inhaler 2 puff INHALATION Q6H 07/23/17 [History Last Taken Unknown] fluticasone propionate 220 mcg/actuation HFA aerosol inhaler 1 puff INHALATION BID 07/23/17 [History Last Taken Unknown] losartan 100 mg tablet 100 mg PO QDAY 07/23/17 [History Last Taken Unknown] atorvastatin 20 mg tablet 20 mg PO QHS #90 tab 08/29/20 [Rx Last Taken Unknown] prednisone 10 mg PO DAILY 11/30/20 [History Last Taken Unknown] Allergy/AdvReac Type Severity Reaction Status Date / Time No Known Allergies Allergy Unverified 09/05/21 20:37 Family History Father CAD (coronary artery disease) PCI-Stent late 50's Mother Colon cancer Surgical History H/O repair of right rotator cuff History of repair of anterior cruciate ligament of left knee Social History Smoking Status: Never smoker Smokeless tobacco user: snuff alcohol intake: current alcohol intake frequency: 3 or more drinks per day Alcohol type: beer ROS ROS ED Constitutional Constitutional ED: Denies chills or weight loss Eyes Eyes: Denies change in vision or diplopia ENT ENT ED: Denies ear pain, rhinorrhea or sore throat Cardiovascular Cardiovascular: Denies chest pain, orthopnea, palpitations or racing heartbeat Respiratory/Chest Respiratory/Chest: Denies cough, dyspnea or orthopnea Gastrointestinal Gastrointestinal: Reports abdominal pain and nausea; Denies diarrhea or vomiting Genitourinary Genitourinary ED: Denies dysuria, hematuria or urinary frequency Musculoskeletal Musculoskeletal: Denies arthralgias or myalgias Integumentary Denies abscess or rash Neurologic Neurologic: Denies headache(s) or weakness Psychiatric Psychiatric: Denies anxiety, depression, suicidal ideation or suicidal thoughts Endocrine Endocrinology: Denies polydipsia, polyphagia or polyuria Allergic/Immunologic Allergic/Immunologic ED: Denies mouth swelling, tongue swelling or urticaria EXAM Physical Exam Const Vital Signs: 09/05/21 20:34 Temperature 98.3 F Temperature Source Temporal Pulse Rate 85 Respiratory Rate 16 Blood Pressure 152/84 H Blood Pressure Mean 106 Pulse Ox 99 Oxygen Delivery Method Room Air Positive well nourished, well developed and obese General Appearance ED: well developed Nutritional Appearance: obese HEENT Reports normocephalic, head/scalp atraumatic, TM's clear and moist mucous m embranes Negative for trauma Tympanic Membrane ED: Yes TM's clear Eyes PERRL and EOMs intact bilaterally Neck no lymphadenopathy, supple and no JVD Resp normal respiratory effort and clear to auscultation bilaterally Cardio regular rate, regular rhythm and no murmurs GI Palpation: soft, tender epigastric and RUQ and guarding; Negative for rebound tenderness present Back/Spine no CVA tenderness and normal ROM Extremity normal to inspection General Extremety ED: Negative for edema General Extremity: Negative for edema Neuro oriented x3 and CN's II-XII intact bilaterally Sensorium / Orientation: alert Motor Exam: strength 5/5 throughout Psych mental status grossly normal Mood & Affect: Negative for depressed or tearful Skin no rashes or lesions noted and no wounds MDM MDM MDM Narrative Medical decision making narrative: White count 16.4. Total bilirubin 1.5 with a direct bili of 1.21. AST of 410 ALT 405 alk phos 236 and a lipase of 30,000 436. Gallbladder ultrasound was obtained which demonstrates cholelithiasis and a common bile duct of 0.68 cm. Patient has received pain and nausea medication and IV fluids. I also neurology and medicine. We will plan on admission Lab Data Attestation: I reviewed the patient's lab results. Labs: Laboratory Results - last 24 hr 09/05/21 09/05/21 21:00 21:00 WBC 16.4 H RBC 4.95 Hgb 15.0 Hct 45.8 MCV 92.5 MCH 30.3 MCHC 32.8 RDW Std Deviation 41.2 RDW Coeff of Travis 12.1 Plt Count 269 MPV 9.4 Immature Gran % (Auto) 0.600 Neut % (Auto) 87.5 H Lymph % (Auto) 5.1 L [place] % (Auto) 6.5 Eos % (Auto) 0.1 Baso % (Auto) 0.2 Absolute Neuts (auto) 14.3 H Absolute Lymphs (auto) 0.84 Nucleated RBC % 0 Sodium 139 Potassium 3.9 Chloride 107 Carbon Dioxide 25.0 Anion Gap 7 BUN 16 Creatinine 1.15 Estim Creat Clear Calc 68.58 Est GFR (MDRD) Af Amer 86 Est GFR (MDRD) Non-Af 71 BUN/Creatinine Ratio 13.9 Glucose 202 H Calcium 9.7 Total Bilirubin 1.50 H Direct Bilirubin 1.21 H AST 410 H ALT 405 H Alkaline Phosphatase 236 H Total Protein 8.2 Albumin 3.9 Globulin 4.3 H Lipase 38742 H EKG Initial EKG: Attestation: I personally reviewed and interpreted this EKG as follows: Comments: Normal sinus rhythm with a ventricular rate of 79 bpm. No concerning features of ACS or ectopy noted. Discharge Plan Dx/Rx/DC Orders Clinical Impression: Acute gallstone pancreatitis, Choledocholithiasis with acute cholecystitis Disposition Disposition: Acute Care [facility]
--- NOTE | 2021-09-05 20:46 | US_ITS ---
EXAM: US ABDOMEN LIMITED, RIGHT UPPER QUADRANT CLINICAL INDICATION: PAIN-RUQ/EPIGASTRIC TECHNIQUE: Real-time ultrasound of the right upper quadrant with image documentation. This report was created using [employer] PTY report generation technology. COMPARISON: November 05, 2020. FINDINGS: LIVER: Liver 15.5 cm in length. Minimal increased echogenicity. No intrahepatic biliary ductal dilation. GALLBLADDER: Mildly prominently distended gallbladder with gallstones. Multiple small stones in the proximal gallbladder. Normal 2.5 mm gallbladder wall. Negative sonographic Foley''s sign. No pericholecystic fluid. COMMON BILE DUCT: Borderline size normal common duct, 7 mm, it was 3 mm on prior exam 2019. The proximal common bile duct is within normal limits for the patient''s age. PANCREAS: Nonvisualized. RIGHT KIDNEY: Right kidney 11.3 cm x 6.9 cm x 5.5 cm. No hydronephrosis. No shadowing calculus. No focal lesion or perinephric collection is demonstrated. US/Gallbladder IMPRESSION: Cholelithiasis. No convincing evidence of acute cholecystitis. Borderline common duct. Electronically Signed: Stephanie Alvarez MD at 22:11 EDT ,
[2021-09-05] MEDS: Morphine 4 MG/ML Syringe IV ×2 (21:00→22:10)
[2021-09-05] MEDS: 0.9% Normal Saline 1,000 ML 1000 ML IV (21:00)
[2021-09-05] MEDS: Ondansetron 4 MG/2 ML Vial IV ×2 (21:00→22:09)
[2021-09-05 21:09] LABS: Absolute Lymphocyte Count 0.84 X10^3/uL (0.83-4.51); Absolute Neutrophil Count 14.3 X10^3/uL (2.0-7.7); Basophil# 0.04 X10^3/uL; Basophil% 0.2 % (0-1); Eosinophil# 0.02 X10^3/uL; Eosinophils% 0.1 % (0-5); Hematocrit 45.8 % (40-54); Lymphocyte # 0.84 X10^3/ul (0.83-4.51); Lymphocyte % 5.1 % (19-41); Mean Corp Hgb Conc 32.8 g/dL (32-36); Mean Corpuscular Hgb 30.3 pg (27.0-32.0); Mean Corpuscular Volume 92.5 fL (80-94); Mean Platelet Vol. 9.4 fl (6.2-12.0); Monocyte# 1.07 X10^3/uL; Monocyte% 6.5 % (0-10); NRBC Flagged by Analyzer 0 % (0-5); Neutrophil # 14.29 X10^3/uL (2.7-7.7); Neutrophil % 87.5 % (47-70); Platelet Count 269 K/mm3 (150-450); RBC Distribution Width CV 12.1 % (11.6-14.6); RBC Distribution Width SD 41.2 fl (35.1-43.9); Red Blood Count 4.95 M/mm3 (4.6-6.2); White Blood Count 16.4 K/mm3 (4.4-11.0)
--- NOTE | 2021-09-05 21:16 | EKG12_ITS ---
Test Reason : DYSRHYTHMIA Blood Pressure : / mmHG Vent. Rate : 079 BPM Atrial Rate : 079 BPM P-R Int : 168 ms QRS Dur : 092 ms QT Int : 368 ms P-R-T Axes : 059 -38 067 degrees QTc Int : 421 ms Normal sinus rhythm Left axis deviation Low voltage QRS (Limb Leads) Abnormal ECG Confirmed by ANGEL ROSALES, VAN ([id number]), acquisition editor ISATU LEVY ([id number]) on 09/09/2021 11:34:02 AM Referred By: Confirmed By:VAN ORTIZ MD
[2021-09-05 21:52] LABS: AST(SGOT) 410 U/L (15-37); Alanine Aminotransfer ALT/SGPT 405 U/L (16-61); Albumin, Serum 3.9 g/dL (3.2-5.0); Alkaline Phosphatase 236 U/L (45-117); Anion Gap 7 (5-15); BUN 16 mg/dL (7-18); BUN/Creat Ratio 13.9 RATIO (10-20); Bilirubin, Direct 1.21 mg/dL (0.00-0.30); Calcium,Total 9.7 mg/dL (8.5-10.1); Chloride 107 mmol/L (98-107); Creatinine, Serum 1.15 mg/dL (0.70-1.30); EST Glomerular Filtration Rate 71 mL/min (>60); Est Glom Filt Rate - Afr Amer 86 mL/min (>60); Estimated Creatinine Clearance 68.58 ml/min; Globulin 4.3 g/dL (2.2-4.2); Glucose 202 mg/dL (74-106); Potassium 3.9 mmol/L (3.5-5.1); Protein, Total 8.2 g/dL (6.4-8.2); Sodium Level 139 mmol/L (136-145)
[2021-09-05] MEDS: 0.9% Normal Saline 1,000 ML 999 ML IV (22:10)
--- NOTE | 2021-09-05 22:29 | HP.PCM.HOS_ITS ---
HPI - General General Date of Admission: 09/05/21 HPI Narrative LISBET MAYER, is a 51 M with a significant history of asthma; rheumatoid arthritis on prednisone; gallstone and alcoholism obstructive sleep apnea who presents to the emergency department with excruciating persistent nonradiating epigastric pain that started on the same day of presentation and about 2 hours after eating beef stew. He had abdominal pain 3 days before presentation and that lasted about 2 hours. Two days before presentation he had an pain about the lasted for about 1 hour. Associated with symptoms is nausea and some mild vomiting. He denies any ameliorating factors to the pain. Deep breath and moving worsens his pain. His pain is a constant with episodic increase in intensity. He describes his pain as sharp. [facility] Medical History (Updated 09/05/21 @ 23:30 by Larissa Fortune) Alcohol abuse Anxiety Asthma Chest pain Former smoker GERD (gastroesophageal reflux disease) Hyperlipidemia Hypertension Obesity Obstructive sleep apnea Palpitation Rheumatoid arthritis Sleep apnea Home Medications albuterol sulfate 90 mcg/actuation aerosol inhaler 2 puff INHALATION PRN PRN 07/23/17 [History Last Taken Unknown] fluticasone propionate 220 mcg/actuation HFA aerosol inhaler 1 puff INHALATION PRN PRN 07/23/17 [History Last Taken Unknown] losartan 100 mg tablet 100 mg PO QDAY 07/23/17 [History Last Taken 09/05/21] atorvastatin 20 mg tablet 20 mg PO QHS #90 tab 08/29/20 [Rx Last Taken 09/05/21] prednisone 10 mg PO PRN PRN 11/30/20 [History Last Taken Unknown] Allergy/AdvReac Type Severity Reaction Status Date / Time No Known Allergies Allergy Unverified 09/05/21 20:37 Family History Father CAD (coronary artery disease) PCI-Stent late 50's Mother Colon cancer Surgical History H/O repair of right rotator cuff History of repair of anterior cruciate ligament of left knee Social History Smoking Status: Former smoker Smokeless tobacco user: snuff alcohol intake: current alcohol intake frequency: 3 or more drinks per day Alcohol type: beer ROS ROS Narrative Pertinent positives and pertinent negatives as noted in HPI. All other systems were reviewed and are negative. Vital Signs Vital Signs Vital Signs: 09/05/21 20:34 Temperature 98.3 F Temperature Source Temporal Pulse Rate 85 Respiratory Rate 16 Blood Pressure 152/84 H Blood Pressure Mean 106 Pulse Ox 99 Oxygen Delivery Method Room Air Weight Weight: 99.79 kg Body Mass Index (BMI) 35.5 Physical Exam Narrative Physical exam: General: Well-nourished, well-developed. Head: Normocephalic, atraumatic, no tenderness Eyes: Vision is grossly intact. EOMI ENT, no trauma, moist mucous membranes, no rhinorrhea Neck: Nontender, full range of motion, no spinal tenderness, deformities, step- off CVS: Regular rate and rhythm. S1-S2 present. No murmur, gallop or rub. Respiratory : clear to auscultation bilaterally, chest wall nontender, no whee zing Abdomen: Soft, tender, nondistended, normal bowel sounds, no masses : Deferred Back: Nontender, no CVA tenderness, no midline spinal tenderness, deformities, step-offs Extremities: Nontender full range of motion, no trauma Skin: Normal color, no trauma, abrasions Neuro: Alert, oriented, cranial nerves II through XII grossly intact. Psychiatry: Normal mood. Normal affect. Not depressed. Not anxious. Results Lab / Micro Data Result Diagrams: 09/05/21 21:00 09/05/21 21:00 Labs: Laboratory Results - last 24 hr 09/05/21 21:00: WBC 16.4 H, RBC 4.95, Hgb 15.0, Hct 45.8, MCV 92.5, MCH 30.3, MCHC 32.8, RDW Std Deviation 41.2, RDW Coeff of Travis 12.1, Plt Count 269, MPV 9. 4, Immature Gran % (Auto) 0.600, Neut % (Auto) 87.5 H, Lymph % (Auto) 5.1 L, [place] % (Auto) 6.5, Eos % (Auto) 0.1, Baso % (Auto) 0.2, Absolute Neuts (auto) 14.3 H, Absolute Lymphs (auto) 0.84, Nucleated RBC % 0 09/05/21 21:00: Sodium 139, Potassium 3.9, Chloride 107, Carbon Dioxide 25.0, Anion Gap 7, BUN 16, Creatinine 1.15, Estim Creat Clear Calc 68.58, Est GFR (MDRD) Af Amer 86, Est GFR (MDRD) Non-Af 71, BUN/Creatinine Ratio 13.9, Glucose 202 H, Calcium 9.7, Total Bilirubin 1.50 H, Direct Bilirubin 1.21 H, AST 410 H, ALT 405 H, Alkaline Phosphatase 236 H, Total Protein 8.2, Albumin 3.9, Globulin 4.3 H, Lipase 19253 H Radiology Impression Gallbladder Ultrasound 09/05/21 20:46 IMPRESSION: Cholelithiasis. No convincing evidence of acute cholecystitis. Borderline common duct. Electronically Signed: Stephanie Alvarez MD at 22:11 EDT , Assessment & Plan Assessment/Plan (1) Acute gallstone pancreatitis: PLAN: Acute gallstone pancreatitis with possible choledocholithiasis Ultrasound of gallbladder was visualized and independent interpreted and I agree with radiologist interpretation of cholelithiasis and borderline duct. Also liver ultrasound on 11/05/2020 showed contracted gallbladder and fatty infilt ration of the liver. Review of labs showed lipase of 30,436 CBC reviewed showed white count of 16.4. Of note patient take steroids intermittently for his rheumatoid arthritis and leukocytosis could be secondary to steroids. Of note patient does not look sick. Unlikely cholecystitis or cholangitis. Trend CBC. In the setting of possible ERCP and leukocytosis Emergency department doctor discussed the case with GI specialist who will follow. GI consult. Emergency plan doctor discussed the case with general surgery who advised against morphine. General surgery consult. Dilaudid as needed for pain. IV Zofran prn antiemetics. Lactated Ringer's. N.p.o. except meds with sips. Will check lipid panel. Alcoholism Patient drinks 8 regular size Lite Beers per day. Last time he drank was reportedly 3 days ago. Folic acid and thiamine ordered. Clinical monitoring Hypertension Blood pressure fairly stable Losartan continued. Trend blood pressure and adjust blood pressure medications. DVT prophylaxis: SCDs ordered. Charges/Coding Visit Charges Inpatient E&M: 55748 Init Hosp L3
[2021-09-05 22:52] VITALS: BP 124/71; PULSE 81; RESP 16; TEMP 36.6; O2SAT 98
[2021-09-05 23:11] VITALS: BMI 36.4
[2021-09-05 23:21] VITALS: BP 116/49; PULSE 76; RESP 20; TEMP 37.3; O2SAT 96
[2021-09-05] MEDS: HYDROmorphone 1 MG/ML Syringe IV (23:41)
[2021-09-05] MEDS: Lactated Ringers 1,000 ML 150 ML IV (23:44)
[2021-09-06] VITALS (9 sets, daily range): BP systolic 124–150; BP diastolic 56–96; PULSE 69–98; RESP 16–18; TEMP 37.3–37.9; O2SAT 94–100; BMI 36.4
[2021-09-06] MEDS: HYDROmorphone 1 MG/ML Syringe IV ×2 (03:47→08:36)
[2021-09-06] MEDS: Lactated Ringers 1,000 ML 150 ML IV ×2 (03:51→20:42)
[2021-09-06 06:28] LABS: Absolute Lymphocyte Count 0.92 X10^3/uL (0.83-4.51); Absolute Neutrophil Count 9.5 X10^3/uL (2.0-7.7); Basophil# 0.03 X10^3/uL; Basophil% 0.3 % (0-1); Eosinophil# 0.02 X10^3/uL; Eosinophils% 0.2 % (0-5); Lymphocyte # 0.92 X10^3/ul (0.83-4.51); Mean Corp Hgb Conc 32.5 g/dL (32-36); Mean Corpuscular Hgb 30.3 pg (27.0-32.0); Mean Corpuscular Volume 93.2 fL (80-94); Mean Platelet Vol. 9.6 fl (6.2-12.0); Monocyte# 0.99 X10^3/uL; Monocyte% 8.6 % (0-10); NRBC Flagged by Analyzer 0 % (0-5); Neutrophil # 9.47 X10^3/uL (2.7-7.7); Neutrophil % 82.5 % (47-70); Platelet Count 232 K/mm3 (150-450); RBC Distribution Width CV 12.3 % (11.6-14.6); RBC Distribution Width SD 42.6 fl (35.1-43.9); Red Blood Count 4.29 M/mm3 (4.6-6.2); White Blood Count 11.5 K/mm3 (4.4-11.0)
[2021-09-06 07:08] LABS: ALB/GLOB Ratio 0.9 RATIO (0.9-2.4); AST(SGOT) 419 U/L (15-37); Alanine Aminotransfer ALT/SGPT 426 U/L (16-61); Albumin, Serum 3.1 g/dL (3.2-5.0); Alkaline Phosphatase 201 U/L (45-117); Anion Gap 5 (5-15); BUN 10 mg/dL (7-18); BUN/Creat Ratio 12.8 RATIO (10-20); Calcium,Total 8.7 mg/dL (8.5-10.1); Chloride 111 mmol/L (98-107); Cholesterol 120 mg/dL (200); Creatinine, Serum 0.78 mg/dL (0.70-1.30); EST Glomerular Filtration Rate 111 mL/min (>60); Est Glom Filt Rate - Afr Amer 135 mL/min (>60); Estimated Creatinine Clearance 101.11 ml/min; Globulin 3.5 g/dL (2.2-4.2); Glucose 122 mg/dL (74-106); High Density Lipoprotein 51 mg/dL; Potassium 3.8 mmol/L (3.5-5.1); Protein, Total 6.6 g/dL (6.4-8.2); Sodium Level 140 mmol/L (136-145); Triglycerides 54 mg/dL; Very Low Density Lipoprotein 11 mg/dL (5-40)
--- NOTE | 2021-09-06 08:00 | HP.PCM.SX_ITS ---
HPI - General General Date of Admission: 09/05/21 HPI Narrative LISBET MAYER, is a 51 M who presents [facility] Medical History (Updated 09/05/21 @ 23:30 by Larissa Fortune) Alcohol abuse Anxiety Asthma Chest pain Former smoker GERD (gastroesophageal reflux disease) Hyperlipidemia Hypertension Obesity Obstructive sleep apnea Palpitation Rheumatoid arthritis Sleep apnea Home Medications albuterol sulfate 90 mcg/actuation aerosol inhaler 2 puff INHALATION PRN PRN 07/23/17 [History Last Taken Unknown] fluticasone propionate 220 mcg/actuation HFA aerosol inhaler 1 puff INHALATION PRN PRN 07/23/17 [History Last Taken Unknown] losartan 100 mg tablet 100 mg PO QDAY 07/23/17 [History Last Taken 09/05/21] atorvastatin 20 mg tablet 20 mg PO QHS #90 tab 08/29/20 [Rx Last Taken 09/05/21] prednisone 10 mg PO PRN PRN 11/30/20 [History Last Taken Unknown] Allergy/AdvReac Type Severity Reaction Status Date / Time No Known Allergies Allergy Unverified 09/05/21 20:37 Family History Father CAD (coronary artery disease) PCI-Stent late 50's Mother Colon cancer Surgical History H/O repair of right rotator cuff History of repair of anterior cruciate ligament of left knee Social History Smoking Status: Former smoker Smokeless tobacco user: snuff alcohol intake: current alcohol intake frequency: 3 or more drinks per day Alcohol type: beer Vital Signs Vital Signs Vital Signs: 09/05/21 20:34 09/05/21 22:52 09/05/21 23:21 Temperature 98.3 F 98 F 99.1 F Temperature Source Temporal Temporal Oral Pulse Rate 85 81 76 Respiratory Rate 16 16 20 H Blood Pressure 152/84 H 124/71 H 116/49 L Blood Pressure Mean 106 88 71 Blood Pressure Source Blood Pressure Position Blood Pressure Location Pulse Ox 99 98 96 Oxygen Delivery Method Room Air Room Air Room Air 09/06/21 05:21 Temperature 99.1 F Temperature Source Oral Pulse Rate 77 Respiratory Rate 16 Blood Pressure 124/56 H Blood Pressure Mean 78 Blood Pressure Source Monitor Blood Pressure Position Semi-Fowlers Blood Pressure Location Right Arm Pulse Ox 94 Oxygen Delivery Method Room Air Weight Weight: 225 lb 12.054 oz Body Mass Index (BMI) 36.4 Results Lab / Micro Data Result Diagrams: 09/06/21 05:14 09/06/21 05:14 Labs: Laboratory Results - last 24 hr 09/05/21 21:00: WBC 16.4 H, RBC 4.95, Hgb 15.0, Hct 45.8, MCV 92.5, MCH 30.3, MC HC 32.8, RDW Std Deviation 41.2, RDW Coeff of Travis 12.1, Plt Count 269, MPV 9.4, Immature Gran % (Auto) 0.600, Neut % (Auto) 87.5 H, Lymph % (Auto) 5.1 L, [place] % (Auto) 6.5, Eos % (Auto) 0.1, Baso % (Auto) 0.2, Absolute Neuts (auto) 14.3 H, Absolute Lymphs (auto) 0.84, Nucleated RBC % 0 09/05/21 21:00: Sodium 139, Potassium 3.9, Chloride 107, Carbon Dioxide 25.0, Anion Gap 7, BUN 16, Creatinine 1.15, Estim Creat Clear Calc 68.58, Est GFR (MDRD) Af Amer 86, Est GFR (MDRD) Non-Af 71, BUN/Creatinine Ratio 13.9, Glucose 202 H, Calcium 9.7, Total Bilirubin 1.50 H, Direct Bilirubin 1.21 H, AST 410 H, ALT 405 H, Alkaline Phosphatase 236 H, Total Protein 8.2, Albumin 3.9, Globulin 4.3 H, Lipase 08115 H 09/06/21 05:14: WBC 11.5 H, RBC 4.29 L, Hgb 13.0, Hct 40.0, MCV 93.2, MCH 30.3, MCHC 32.5, RDW Std Deviation 42.6, RDW Coeff of [place] 12.3, Plt Count 232, MPV 9.6, Immature Gran % (Auto) 0.400, Neut % (Auto) 82.5 H, Lymph % (Auto) 8.0 L, [place] % (Auto) 8.6, Eos % (Auto) 0.2, Baso % (Auto) 0.3, Absolute Neuts (auto) 9.5 H, Absolute Lymphs (auto) 0.92, Nucleated RBC % 0 09/06/21 05:14: Sodium 140, Potassium 3.8, Chloride 111 H, Carbon Dioxide 24.0, Anion Gap 5, BUN 10, Creatinine 0.78, Estim Creat Clear Calc 101.11, Est GFR (MDRD) Af Amer 135, Est GFR (MDRD) Non-Af 111, BUN/Creatinine Ratio 12.8, Glucose 122 H, Calcium 8.7, Total Bilirubin 1.70 H, AST 419 H, ALT 426 H, Alkaline Phosphatase 201 H, Total Protein 6.6, Albumin 3.1 L, Globulin 3.5, Albumin/Globulin Ratio 0.9, Triglycerides 54, Cholesterol 120, LDL Cholesterol 58, VLDL Cholesterol 11, HDL Cholesterol 51 Radiology Impression Gallbladder Ultrasound 09/05/21 20:46 IMPRESSION: Cholelithiasis. No convincing evidence of acute cholecystitis. Borderline common duct. Electronically Signed: Stephanie Alvarez MD at 22:11 EDT ,
--- NOTE | 2021-09-06 08:13 | CON.PCM.SX_ITS ---
Assessment & Plan Assessment/Plan (1) Acute gallstone pancreatitis: (2) Choledocholithiasis with acute cholecystitis: PLAN: Patient will be going for an ERCP with Dr. Ramsey today. Discussed with patient would plan for laparoscopic cholecystectomy probably on Thursday. After ERCP okay for clears until Thursday night midnight. Would continue antibiotics Zosyn IV. Reviewed the anatomy with the patient and discussed the procedure: laparoscopic cholecystectomy with possible cholangiograms, possible open. Review risks including but not limited to bleeding, infection, hernia, bile leak, retained gallstones requiring another procedure ERCP- Endoscopic Retrograde Cholangiopancreatography, injury to another organ (bile ducts, common bile duct, small bowel, etc.) and conversion to an open procedure. All questions were answered. Dr. Benitez will be covering over the weekend. Susie Kessler M.D. Pager: [phone] [facility] [address] [place] [address], [facility], [address] [place] [address] Office: [phone] HPI Consult Data Date of Consult: 09/06/21 HPI Narrative HPI Narrative: LISBET MAYER, is a 51 M who presents with epigastric abdominal pain patient states this 1 started at noon yesterday. However he had several e pisodes this week Thursday and Thursday each lasting between 1 to 2 hours. Patient states his pain has not resolved patient also admits some nausea. Patient's labs showed a lipase of 30,000, elevated LFTs, ultrasound showed choledocholithiasis, cholelithiasis, normal gallbladder wall, no pericholecystic fluid. Patient still complains of epigastric abdominal pain this morning- controlled with pain meds. [facility] Medical History (Updated 09/05/21 @ 23:30 by Larissa Fortune) Alcohol abuse Anxiety Asthma Chest pain Former smoker GERD (gastroesophageal reflux disease) Hyperlipidemia Hypertension Obesity Obstructive sleep apnea Palpitation Rheumatoid arthritis Sleep apnea Home Medications albuterol sulfate 90 mcg/actuation aerosol inhaler 2 puff INHALATION PRN PRN 07/23/17 [History Last Taken Unknown] fluticasone propionate 220 mcg/actuation HFA aerosol inhaler 1 puff INHALATION PRN PRN 07/23/17 [History Last Taken Unknown] losartan 100 mg tablet 100 mg PO QDAY 07/23/17 [History Last Taken 09/05/21] atorvastatin 20 mg tablet 20 mg PO QHS #90 tab 08/29/20 [Rx Last Taken 09/05/21] prednisone 10 mg PO PRN PRN 11/30/20 [History Last Taken Unknown] Allergy/AdvReac Type Severity Reaction Status Date / Time No Known Allergies Allergy Unverified 09/05/21 20:37 Family History Father CAD (coronary artery disease) PCI-Stent late 50's Mother Colon cancer Surgical History H/O repair of right rotator cuff History of repair of anterior cruciate ligament of left knee Social History Smoking Status: Former smoker Smokeless tobacco user: snuff alcohol intake: current alcohol intake frequency: 3 or more drinks per day Alcohol type: beer ROS Constitutional Constitutional: Denies fever(s) Eyes Eyes: Denies change in vision ENT HEENT: Denies dysphagia Cardiovascular Cardiovascular: Denies chest pain Respiratory/Chest Respiratory/Chest: Denies cough or shortness of breath at rest Gastrointestinal Gastrointestinal: Reports abdominal pain, bloating and nausea; Denies constipation or melena Genitourinary Genitourinary: Denies dysuria Musculoskeletal Musculoskeletal: Denies difficulty walking Integumentary Integumentary: Denies jaundice or rash Neurologic Neurologic: Denies abnormal gait or focal weakness Psychiatric Psychiatric: Denies depression Physical Exam Const alert, oriented x3 and no apparent distress HEENT normocephalic and head/scalp atraumatic Resp normal respiratory effort Cardio regular rate GI soft to palpation; Negative for non-distended Palpation: tender epigastric, LUQ and RUQ; Negative for guarding Extremity no clubbing, cyanosis or edema General Extremity: normal exam except as noted Neuro CN's II-XII intact bilaterally Psych mental status grossly normal Lab / Micro Data Result Diagrams: 09/06/21 05:14 09/06/21 05:14 Labs: Laboratory Results - last 24 hr 09/05/21 21:00: WBC 16.4 H, RBC 4.95, Hgb 15.0, Hct 45.8, MCV 92.5, MCH 30.3, MCHC 32.8, RDW Std Deviation 41.2, RDW Coeff of Travis 12.1, Plt Count 269, MPV 9.4, Immature Gran % (Auto) 0.600, Neut % (Auto) 87.5 H, Lymph % (Auto) 5.1 L, [place] % (Auto) 6.5, Eos % (Auto) 0.1, Baso % (Auto) 0.2, Absolute Neuts (auto) 14.3 H, Absolute Lymphs (auto) 0.84, Nucleated RBC % 0 09/05/21 21:00: Sodium 139, Potassium 3.9, Chloride 107, Carbon Dioxide 25.0, Anion Gap 7, BUN 16, Creatinine 1.15, Estim Creat Clear Calc 68.58, Est GFR (MDRD) Af Amer 86, Est GFR (MDRD) Non-Af 71, BUN/Creatinine Ratio 13.9, Glucose 202 H, Calcium 9.7, Total Bilirubin 1.50 H, Direct Bilirubin 1.21 H, AST 410 H, ALT 405 H, Alkaline Phosphatase 236 H, Total Protein 8.2, Albumin 3.9, Globulin 4.3 H, Lipase 33270 H 09/06/21 05:14: WBC 11.5 H, RBC 4.29 L, Hgb 13.0, Hct 40.0, MCV 93.2, MCH 30.3, MCHC 32.5, RDW Std Deviation 42.6, RDW Coeff of Travis 12.3, Plt Count 232, MPV 9.6, Immature Gran % (Auto) 0.400, Neut % (Auto) 82.5 H, Lymph % (Auto) 8.0 L, [place] % (Auto) 8.6, Eos % (Auto) 0.2, Baso % (Auto) 0.3, Absolute Neuts (auto) 9.5 H, Absolute Lymphs (auto) 0.92, Nucleated RBC % 0 09/06/21 05:14: Sodium 140, Potassium 3.8, Chloride 111 H, Carbon Dioxide 24.0, Anion Gap 5, BUN 10, Creatinine 0.78, Estim Creat Clear Calc 101.11, Est GFR (MDRD) Af Amer 135, Est GFR (MDRD) Non-Af 111, BUN/Creatinine Ratio 12.8, Glucose 122 H, Calcium 8.7, Total Bilirubin 1.70 H, AST 419 H, ALT 426 H, Al kaline Phosphatase 201 H, Total Protein 6.6, Albumin 3.1 L, Globulin 3.5, Albumin/Globulin Ratio 0.9, Triglycerides 54, Cholesterol 120, LDL Cholesterol 58, VLDL Cholesterol 11, HDL Cholesterol 51 Radiology Impression Gallbladder Ultrasound 09/05/21 20:46 IMPRESSION: Cholelithiasis. No convincing evidence of acute cholecystitis. Borderline common duct. Electronically Signed: Stephanie Alvarez MD at 22:11 EDT , Procedure Criteria Type of Procedure Procedure Type: Elective Elective Risks - COVID COVID Risk Discussion: The surgeon/proceduralist and patient have discussed in detail the risk of exposure to and/or potential harm posed by the COVID-19 virus with having a surgery/procedure at this time versus the risk of delaying the surgery/procedure. It is not possible to know either the risk of delaying the surgery or procedure or chance of getting an infection with perfect accuracy, but a joint decision was made between the patient and the surgeon/proceduralist to proceed at this time with the scheduled surgery/procedure as indicated on the consent form. Charges/Coding Visit Charges Inpatient E&M: 29556 Init Hosp L3
[2021-09-06] MEDS: Acetaminophen 325 MG Tablet 650 MG PO (08:36)
[2021-09-06] MEDS: Thiamine Hydrochloride 100 MG Tablet PO (08:37)
[2021-09-06] MEDS: Folic Acid 1 MG Tablet PO (08:37)
[2021-09-06] MEDS: predniSONE 10 MG Tablet PO (08:37)
[2021-09-06 09:02] LABS: Lipase 12754 U/L (73-393)
--- NOTE | 2021-09-06 11:00 | PCM.CONS.GEN ---
Assessment & Plan Assessment/Plan (1) Choledocholithiasis with acute cholecystitis: PLAN: Patient has a dilated common bile duct with a cholestatic hepatitis along with jaundice. There is a high suspicion for choledocholithiasis and with his elevated white count subsequently a sending cholangitis. Recommend for him to undergo ERCP with evaluation of his hepatobiliary system. He was explained alternatives, risk, benefits including not withstanding bleeding, infection, sepsis, perforation, need for emergent . Have an ASA of 3. Recommend to continue IV antibiotics with Zosyn therapy. He can continue anticoagulation. Further recommendations to follow. HPI Consult Data Date of Consult: 09/06/21 HPI Narrative HPI Narrative: LISBET MAYER, is a 51 M with a significant history of asthma; rheumatoid arthritis on prednisone; gallstone and alcoholism obstructive sleep apnea who presents to the emergency department with excruciating persistent nonradiating epigastric pain that started on the same day of presentation and about 2 hours after eating beef stew. He had abdominal pain 3 days before presentation and that lasted about 2 hours. Two days before presentation he had an pain about the lasted for about 1 hour. Associated with symptoms is nausea and some mild vomiting. He denies any ameliorating factors to the pain. Deep breath and moving worsens his pain. His pain is a constant with episodic increase in intensity. He describes his pain as sharp. [facility] Medical History Alcohol abuse Anxiety Asthma Chest pain Former smoker GERD (gastroesophageal reflux disease) Hyperlipidemia Hypertension Obesity Obstructive sleep apnea Palpitation Rheumatoid arthritis Sleep apnea Home Medications albuterol sulfate 90 mcg/actuation aerosol inhaler 2 puff INHALATION PRN PRN 07/23/17 [History Last Taken Unknown] fluticasone propionate 220 mcg/actuation HFA aerosol inhaler 1 puff INHALATION PRN PRN 07/23/17 [History Last Taken Unknown] losartan 100 mg tablet 100 mg PO QDAY 07/23/17 [History Last Taken 09/05/21] atorvastatin 20 mg tablet 20 mg PO QHS #90 tab 08/29/20 [Rx Last Taken 09/05/21] prednisone 10 mg PO PRN PRN 11/30/20 [History Last Taken Unknown] Allergy/AdvReac Type Severity Reaction Status Date / Time No Known Allergies Allergy Unverified 09/05/21 20:37 Family History Father CAD (coronary artery disease) PCI-Stent late 50's Mother Colon cancer Surgical History H/O repair of right rotator cuff History of repair of anterior cruciate ligament of left knee Social History Smoking Status: Former smoker Smokeless tobacco user: snuff alcohol intake: current alcohol intake frequency: 3 or more drinks per day Alcohol type: beer ROS Gastrointestinal Gastrointestinal: Reports abdominal pain Physical Exam Const alert General Appearance: cooperative Orientation / Consciousness: oriented to person HEENT hearing grossly normal bilaterally Head and Scalp: normal to inspection Face and Sinus: face symmetric Nose: external nose normal Mouth: oral and palatal mucosa normal Eyes conjunctivae normal General Eye: normal appearance of both eyes Neck full ROM General: normal visual inspection Lymph Lymphatic: no lymphadenopathy noted Chest inspection of chest normal and palpation of chest normal Chest: symmetrical chest wall rise Resp normal respiratory effort Effort and Inspection: able to speak in complete sentences Cardio regular rate GI non-distended Percussion: normal to percussion Rectal Exam: deferred Neuro Speech: speech normal Gait (Neuro): normal gait Lab / Micro Data Result Diagrams: 09/06/21 05:14 09/06/21 05:14 Labs: Laboratory Results - last 24 hr 09/05/21 21:00: WBC 16.4 H, RBC 4.95, Hgb 15.0, Hct 45.8, MCV 92.5, MCH 30.3, MCHC 32.8, RDW Std Deviation 41.2, RDW Coeff of Travis 12.1, Plt Count 269, MPV 9.4, Immature Gran % (Auto) 0.600, Neut % (Auto) 87.5 H, Lymph % (Auto) 5.1 L, [place] % (Auto) 6.5, Eos % (Auto) 0.1, Baso % (Auto) 0.2, Absolute Neuts (auto) 14.3 H, Absolute Lymphs (auto) 0.84, Nucleated RBC % 0 09/05/21 21:00: Sodium 139, Potassium 3.9, Chloride 107, Carbon Dioxide 25.0, Anion Gap 7, BUN 16, Creatinine 1.15, Estim Creat Clear Calc 68.58, Est GFR (MDRD) Af Amer 86, Est GFR (MDRD) Non-Af 71, BUN/Creatinine Ratio 13.9, Glucose 202 H, Calcium 9.7, Total Bilirubin 1.50 H, Direct Bilirubin 1.21 H, AST 410 H, ALT 405 H, Alkaline Phosphatase 236 H, Total Protein 8.2, Albumin 3.9, Globulin 4.3 H, Lipase 82290 H 09/06/21 05:14: WBC 11.5 H, RBC 4.29 L, Hgb 13.0, Hct 40.0, MCV 93.2, MCH 30.3, MCHC 32.5, RDW Std Deviation 42.6, RDW Coeff of Travis 12.3, Plt Count 232, MPV 9.6, Immature Gran % (Auto) 0.400, Neut % (Auto) 82.5 H, Lymph % (Auto) 8.0 L, [place] % (Auto) 8.6, Eos % (Auto) 0.2, Baso % (Auto) 0.3, Absolute Neuts (auto) 9.5 H, Absolute Lymphs (auto) 0.92, Nucleated RBC % 0 09/06/21 05:14: Sodium 140, Potassium 3.8, Chloride 111 H, Carbon Dioxide 24.0, Anion Gap 5, BUN 10, Creatinine 0.78, Estim Creat Clear Calc 101.11, Est GFR (MDRD) Af Amer 135, Est GFR (MDRD) Non-Af 111, BUN/Creatinine Ratio 12.8, Glucose 122 H, Calcium 8.7, Total Bilirubin 1.70 H, AST 419 H, ALT 426 H, Alkaline Phosphatase 201 H, Total Protein 6.6, Albumin 3.1 L, Globulin 3.5, Albumin/Globulin Ratio 0.9, Triglycerides 54, Cholesterol 120, LDL Cholesterol 58, VLDL Cholesterol 11, HDL Cholesterol 51 09/06/21 05:14: Lipase 33014 H Radiology Impression Gallbladder Ultrasound 09/05/21 20:46 IMPRESSION: Cholelithiasis. No convincing evidence of acute cholecystitis. Borderline common duct. Electronically Signed: Stephanie Alvarez MD at 22:11 EDT , Charges/Coding Visit Charges Inpatient E&M: 51084 Init Hosp L2
--- NOTE | 2021-09-06 11:00 | CM.UR ---
RN CM TODDLER LEAD TEACHER CM to room to meet with patient for initial transition planning/care coordination assessment. RN DEZ introduced self and role at [facility]. Pt voices understanding and consents to assessment at this time. Pt resting in bed in no distress at this time. @ bedside. Pt is A/O at this time. Care providers, pharmacy, and demographics verified/updated at this time. PCP: Dr Jovanny Gillette Specialists: Dr Zaragoza--rheumatology. Used to see Dr Babb, but not currently. Preferred Pharmacy: [facility] Retail Insurance: [place] Prescription Benefit: Yes LNOK: , [place] Living Arrangements: Lives w/ and 18-yr-old son in split-level home w/4 steps to enter. Denies difficulty w/stairs. Independent w/ADL's. manages most home tasks. Pt does outside work. Transportation: Pt states drives self and states no transportation concerns at this time. also drives DME: Denies using any DME and denies needs. Used to use a PAP, but states has not used it in a long time, stating, I hated it. HHC/SNF: No hx of either. No needs identified ETOH: Pt states he does drink ETOH. RN DEZ inquired about how much he drinks. He stated, Oh, I don't know. It's sporadic. stated, It's the light stuff. Not hard liquor. Per H/P, pt drink 8 regular size Light Beers. Pankaj, Addiction Therapist, made aware. Pt wishes to return home and states has no concerns with going home at time of discharge. Pt states does not smoke. CM to follow for any discharge planning/needs. Pt and voice no concerns/needs at this time. Advised them to ask for CM if any further questions/concerns/needs arise. Voices understanding. PLAN: Home w/spousal support and discharge plans in place. Sree RILEY RN, CM
--- NOTE | 2021-09-06 12:18 | PCM.PN.HOSP ---
Documented by User: Timbo FREEDMAN 09/06/21 12:29 Subjective Subjective Patient is a 51-year-old male comfortably resting in bed, alert and orient x3. Patient reports ongoing right-sided abdominal pain, but denies any nausea, vomiting or diarrhea. Does not appear in acute distress. Objective Data Objective Data Vital Signs: Vital Signs Temp Pulse Resp BP Pulse Ox 99.3 F H 69 18 128/68 H 95 09/06/21 12:03 09/06/21 12:03 09/06/21 12:03 09/06/21 12:03 09/06/21 12:03 Oxygen Delivery Method Room Air Weight: 225 lb 12.054 oz Body Mass Index (BMI) 36.4 Intake & Output: Intake and Output for Last 24 Hours 09/04/21 09/05/21 09/06/21 23:59 23:59 23:59 Intake Total 2100 / 2100 950.0 / 950.0 Output Total 250 / 250 Balance 2100 / 2100 700.0 / 700.0 Lab / Micro Data Result Diagrams: 09/06/21 05:14 09/06/21 05:14 Labs: Laboratory Results - last 24 hr 09/05/21 21:00: WBC 16.4 H, RBC 4.95, Hgb 15.0, Hct 45.8, MCV 92.5, MCH 30.3, MCHC 32.8, RDW Std Deviation 41.2, RDW Coeff of Travis 12.1, Plt Count 269, MPV 9.4, Immature Gran % (Auto) 0.600, Neut % (Auto) 87.5 H, Lymph % (Auto) 5.1 L, [place] % (Auto) 6.5, Eos % (Auto) 0.1, Baso % (Auto) 0.2, Absolute Neuts (auto) 14.3 H, Absolute Lymphs (auto) 0.84, Nucleated RBC % 0 09/05/21 21:00: Sodium 139, Potassium 3.9, Chloride 107, Carbon Dioxide 25.0, Anion Gap 7, BUN 16, Creatinine 1.15, Estim Creat Clear Calc 68.58, Est GFR (MDRD) Af Amer 86, Est GFR (MDRD) Non-Af 71, BUN/Creatinine Ratio 13.9, Glucose 202 H, Calcium 9.7, Total Bilirubin 1.50 H, Direct Bilirubin 1.21 H, AST 410 H, ALT 405 H, Alkaline Phosphatase 236 H, Total Protein 8.2, Albumin 3.9, Globulin 4.3 H, Lipase 50241 H 09/06/21 05:14: WBC 11.5 H, RBC 4.29 L, Hgb 13.0, Hct 40.0, MCV 93.2, MCH 30.3, MCHC 32.5, RDW Std Deviation 42.6, RDW Coeff of Travis 12.3, Plt Count 232, MPV 9.6, Immature Gran % (Auto) 0.400, Neut % (Auto) 82.5 H, Lymph % (Auto) 8.0 L, [place] % (Auto) 8.6, Eos % (Auto) 0.2, Baso % (Auto) 0.3, Absolute Neuts (auto) 9.5 H, Absolute Lymphs (auto) 0.92, Nucleated RBC % 0 09/06/21 05:14: Sodium 140, Potassium 3.8, Chloride 111 H, Carbon Dioxide 24.0, Anion Gap 5, BUN 10, Creatinine 0.78, Estim Creat Clear Calc 101.11, Est GFR (MDRD) Af Amer 135, Est GFR (MDRD) Non-Af 111, BUN/Creatinine Ratio 12.8, Glucose 122 H, Calcium 8.7, Total Bilirubin 1.70 H, AST 419 H, ALT 426 H, Alkaline Phosphatase 201 H, Total Protein 6.6, Albumin 3.1 L, Globulin 3.5, Albumin/Globulin Ratio 0.9, Triglycerides 54, Cholesterol 120, LDL Cholesterol 58, VLDL Cholesterol 11, HDL Cholesterol 51 09/06/21 05:14: Lipase 92956 H Radiography Diagnostic Testing: Radiology Impression Gallbladder Ultrasound 09/05/21 20:46 IMPRESSION: Cholelithiasis. No convincing evidence of acute cholecystitis. Borderline common duct. Electronically Signed: Stephanie Alvarez MD at 22:11 EDT , Physical Exam Const alert, oriented x3 and no apparent distress HEENT head/scalp atraumatic and moist oral mucous membranes Head and Scalp: normocephalic Eyes PERRL and conjunctivae normal Neck no lymphadenopathy, supple and no JVD Resp normal respiratory effort, no retractions and no use of accessory muscles Cardio regular rate, regular rhythm and no JVD GI normal to inspection, nondistended, normoactive bowel sounds Palpation: firm and tender RLQ and RUQ Extremity normal to inspection Skin no rashes or lesions noted Neuro CN's II-XII intact bilaterally Psych affect normal Assessment & Plan Assessment/Plan (1) Acute gallstone pancreatitis: PLAN: Day 1 Discharge planning: Current plan is for patient to discharge home when medically ready. 1) acute cholecystitis secondary to choledocholithiasis Patient not septic at this time, vital signs stable. White count improved from admission, currently 11,000. Patient to undergo ERCP this afternoon, per Dr. Ramsey. General surgery following and current plan is for patient to undergo laparoscopic cholecystectomy on 09/09/2021. We will continue IV Zosyn and fluids. 2) acute gallstone pancreatitis Likely commendation of gallstone obstruction and alcoholism. Lipase improved from admission currently 12,007-54. FLP within normal limits. Patient denies any withdrawal symptoms. Patient reports that he usually drinks 8 beers per day, but last time he drank was on 09/03. Folic acid and thiamine replacement ordered. Plan as above. 3) alcoholism Denies any withdrawal symptoms. Plan as above. 4) transaminitis AST and ALT elevated at 419 and 426 respectively. Alk phos currently 201. Likely secondary to above. Plan as above. 5) HTN Well-controlled, continue losartan. DVT prophylaxis - SCDs Patient seen by Timbo Quach PA-C, under the supervision of Dr. Ortiz. Time spent on patient care: 9 minutes. Documented by User: Dr. Bethel Ortiz MD 09/06/21 16:05 Objective Data Lab / Micro Data Result Diagrams: 09/06/21 05:14 09/06/21 05:14 Charges/Coding Addendum Addendum: Dr. Ortiz: I personally reviewed the chart and examined the patient, and agree with the above findings. 51-year-old male presenting with gallstone pancreatitis. Plan is for ERCP today and then an cholecystectomy on Thursday. He is feeling better today states that the pain is improved. Continue with pain meds and antibiotics. Clinical time spent on all aspects of patient care: 20 minutes Visit Charges Inpatient E&M: 37993 Subs Hosp L2
--- NOTE | 2021-09-06 16:15 | CASEMGMT ---
Social Work SW received referral from [facility] that pt admits to drinking 8 lite beers a day. SW met with pt and to discuss alcohol use. Pt does confirm alcohol use but denies a problem or a need for additional resources for cessation. Pt stating alcohol use does not interfere with daily activities and pt concurs. Pt made aware that SW is available if he changes his mind and would like resources. DIOMEDES Ruano
--- NOTE | 2021-09-06 18:37 | RAD_ITS ---
ERCP biliary only Contrast injected into common bile duct. There are filling defects seen. There is a filling defect at the proximal common duct. Several centimeters distally there is a second filling defect and there is a third filling defect partly hidden by the overlapping endoscope. There is also a possible filling defect seen at the contrast injection site. RAD/ERCP Biliary Only IMPRESSION: There are multiple filling defects in the common bile duct. The common bile duct appears mildly dilated. Electronically Signed: Ras Reid MD at 23:13 EDT ,
--- NOTE | 2021-09-06 19:21 | OP.ERCP_ITS ---
Patient Name: Timbo Graff Procedure Date: 09/06/2021 6:18 PM Date of : 1970 Age: 51 Procedure: ERCP Indications: Bile duct stone(s) Providers: Augie Ramsey DO Medicines: General Anesthesia Patient Profile: This is a 51 year old male. Refer to note in patient chart for documentation of history and physical. Patient has symptoms of acute right upper quadrant abdominal pain and acute jaundice. Complications: No immediate complications. Procedure: Pre-Anesthesia Assessment: - Prior to the procedure, a History and Physical was performed, and patient medications and allergies were reviewed. The patient is competent. The risks and benefits of the procedure and the sedation options and risks were discussed with the patient. All questions were answered and informed consent was obtained. Patient identification and proposed procedure were verified by the physician in the pre-procedure area. Mental Status Examination: alert and oriented. Airway Examination: normal oropharyngeal airway and neck mobility. Respiratory Examination: clear to auscultation. CV Examination: normal. Prophylactic Antibiotics: The patient does not require prophylactic antibiotics. Prior Anticoagulants: The patient has taken no previous anticoagulant or antiplatelet agents. After reviewing the risks and benefits, the patient was deemed in satisfactory condition to undergo the procedure. The anesthesia plan was to use moderate sedation / analgesia (conscious sedation). Immediately prior to administration of medications, the patient was re-assessed for adequacy to receive sedatives. The heart rate, respiratory rate, oxygen saturations, blood pressure, adequacy of pulmonary ventilation, and response to care were monitored throughout the procedure. The physical status of the patient was re-assessed after the procedure. After obtaining informed consent, the scope was passed under direct vision. Throughout the procedure, the patient's blood pressure, pulse, and oxygen saturations were monitored continuously. The [id number] endoscope was introduced through the mouth, and advanced to the duodenum and used to inject contrast into the bile duct. The ERCP was accomplished without difficulty. The patient tolerated the procedure well. Scope In: 6:50:50 PM Scope Out: 7:04:08 PM Total Procedure Duration Time 0 hours 13 minutes 18 seconds Findings: The galley stripper film was normal. The esophagus was successfully intubated under direct vision. The scope was advanced to a normal major papilla in the descending duodenum without detailed examination of the pharynx, larynx and associated structures, and upper GI tract. The upper GI tract was grossly normal. The bile duct was deeply cannulated. Contrast was injected. I personally interpreted the bile duct images. There was brisk flow of contrast through the ducts. Opacification of the main bile duct was successful. The maximum diameter of the ducts was 10 mm. The middle third of the main bile duct contained one stone, which was 6 mm in diameter. The upper third of the main bile duct was diffusely dilated, with a stone causing an obstruction. The largest diameter was 6 mm. A straight Roadrunner wire was passed into the biliary tree. A 5 mm biliary sphincterotomy was made with a traction (standard) sphincterotome using ERBE electrocautery. The sphincterotomy oozed blood. The biliary tree was swept with a 15 mm balloon starting at the bifurcation. Sludge was swept from the duct. All stones were removed. One 10 Fr by 5 cm temporary stent was placed 5 cm into the common bile duct. Bile flowed through the stent. The stent was in good position. Impression: - The upper third of the main bile duct was dilated, with a stone causing an obstruction. - Choledocholithiasis was found. Complete removal was accomplished by biliary sphincterotomy and balloon extraction. - A biliary sphincterotomy was performed. - The biliary tree was swept. - One temporary stent was placed into the common bile duct. Procedure Code(s): --- Professional --- 58782, Endoscopic retrograde cholangiopancreatography (ERCP); with placement of endoscopic stent into biliary or pancreatic duct, including pre- and post-dilation and guide wire passage, when performed, including sphincterotomy, when performed, each stent 52944, Endoscopic retrograde cholangiopancreatography (ERCP); with removal of calculi/debris from biliary/pancreatic duct(s) 70600, Endoscopic catheterization of the biliary ductal system, radiological supervision and interpretation CPT copyright 2017 [employer]. All rights reserved. The codes documented in this report are preliminary and upon window covering sales consultant review may be revised to meet current compliance requirements. Augie Ramsey DO 09/06/2021 7:21:07 PM This report has been signed electronically. Number of Addenda: 0 Note Initiated On: 09/06/2021 6:18 PM
--- NOTE | 2021-09-06 19:22 | OP.CCLET_ITS ---
09/06/2021 Jovanny Gillette [address] [place] [address] Re : ERCP procedure for Timbo Graff Dear Dr. Gillette This procedure was performed on Monday, September 06, 2021. My impressions and recommendations are as follows: Impressions : - The upper third of the main bile duct was dilated, with a stone causing an obstruction. - Choledocholithiasis was found. Complete removal was accomplished by biliary sphincterotomy and balloon extraction. - A biliary sphincterotomy was performed. - The biliary tree was swept. - One temporary stent was placed into the common bile duct. Recommendations : My findings are described in the full procedure note, which is enclosed. If I can be of further assistance, please feel free to contact me at . Sincerely, Augie Ramsey, 09/06/2021 7:21:07 PM This report has been signed electronically.
--- NOTE | 2021-09-06 20:23 | NURSING ---
PATIENT RETURNED TO THE FLOOR FROM PACU AT THIS TIME.
[2021-09-06] MEDS: 0.9% Saline Lock 10 ML Syringe IV (20:41)
[2021-09-06] MEDS: Atorvastatin Calcium 20 MG Tablet PO (20:42)
[2021-09-07] MEDS: Lactated Ringers 1,000 ML 150 ML IV ×3 (01:31→14:58)
[2021-09-07 02:40] VITALS: BP 142/82; PULSE 75; RESP 16; TEMP 37.4; O2SAT 95
[2021-09-07 06:52] LABS: Absolute Lymphocyte Count 0.66 X10^3/uL (0.83-4.51); Absolute Neutrophil Count 13.9 X10^3/uL (2.0-7.7); Basophil# 0.01 X10^3/uL; Basophil% 0.1 % (0-1); Hematocrit 39.8 % (40-54); Hemoglobin 13.5 g/dL (13.0-16.5); Lymphocyte # 0.66 X10^3/ul (0.83-4.51); Lymphocyte % 4.3 % (19-41); Mean Corp Hgb Conc 33.9 g/dL (32-36); Mean Corpuscular Hgb 30.8 pg (27.0-32.0); Mean Corpuscular Volume 90.9 fL (80-94); Mean Platelet Vol. 9.4 fl (6.2-12.0); Monocyte# 0.66 X10^3/uL; Monocyte% 4.3 % (0-10); NRBC Flagged by Analyzer 0 % (0-5); Neutrophil # 13.87 X10^3/uL (2.7-7.7); Neutrophil % 90.7 % (47-70); Platelet Count 213 K/mm3 (150-450); RBC Distribution Width SD 40.1 fl (35.1-43.9); Red Blood Count 4.38 M/mm3 (4.6-6.2); White Blood Count 15.3 K/mm3 (4.4-11.0)
[2021-09-07 07:21] LABS: AST(SGOT) 135 U/L (15-37); Alanine Aminotransfer ALT/SGPT 272 U/L (16-61); Alkaline Phosphatase 169 U/L (45-117); Anion Gap 6 (5-15); BUN 9 mg/dL (7-18); BUN/Creat Ratio 13.7 RATIO (10-20); Bilirubin, Direct 0.25 mg/dL (0.00-0.30); Calcium,Total 8.9 mg/dL (8.5-10.1); Chloride 104 mmol/L (98-107); Creatinine, Serum 0.66 mg/dL (0.70-1.30); EST Glomerular Filtration Rate 136 mL/min (>60); Est Glom Filt Rate - Afr Amer 165 mL/min (>60); Estimated Creatinine Clearance 119.49 ml/min; Globulin 4.1 g/dL (2.2-4.2); Glucose 110 mg/dL (74-106); Lipase 1576 U/L (73-393); Potassium 3.8 mmol/L (3.5-5.1); Protein, Total 7.1 g/dL (6.4-8.2); Sodium Level 134 mmol/L (136-145)
[2021-09-07] MEDS: Folic Acid 1 MG Tablet PO (08:17)
[2021-09-07] MEDS: predniSONE 10 MG Tablet PO (08:17)
[2021-09-07] MEDS: Thiamine Hydrochloride 100 MG Tablet PO (08:17)
--- NOTE | 2021-09-07 08:28 | PCM.PN.SRG ---
Subjective Subjective Patient seen and examined during AM rounds. He reports that he is feeling better this morning. He states that he still has some residual soreness in the epigastric region of his abdomen. Objective Data Objective Data Vital Signs: Vital Signs Temp Pulse Resp BP Pulse Ox 99.4 F H 75 16 142/82 H 95 09/07/21 02:40 09/07/21 02:40 09/07/21 02:40 09/07/21 02:40 09/07/21 02:40 Oxygen Delivery Method Room Air Weight: 225 lb 12.054 oz Body Mass Index (BMI) 36.4 Intake & Output: Intake and Output for Last 24 Hours 09/05/21 09/06/21 09/07/21 23:59 23:59 23:59 Intake Total 2099 / 2100 1708.54 / 1708.54 1772.5 / 1772.5 Output Total 250 / 850 1000 / 1000 Balance 2099 / 2099 1458.54 / 858.54 772.5 / 772.5 Lab / Micro Data Result Diagrams: 09/07/21 06:04 09/07/21 06:04 Labs: Laboratory Results - last 24 hr 09/06/21 05:14: Lipase 04628 H 09/07/21 06:04: WBC 15.3 H, RBC 4.38 L, Hgb 13.5, Hct 39.8 L, MCV 90.9, MCH 30.8, MCHC 33.9, RDW Std Deviation 40.1, RDW Coeff of Travis 12.0, Plt Count 213, MPV 9.4, Immature Gran % (Auto) 0.600, Neut % (Auto) 90.7 H, Lymph % (Auto) 4.3 L, [place] % (Auto) 4.3, Eos % (Auto) 0.0, Baso % (Auto) 0.1, Absolute Neuts (auto) 13.9 H, Absolute Lymphs (auto) 0.66 L, Nucleated RBC % 0 09/07/21 06:04: Sodium 134 L, Potassium 3.8, Chloride 104, Carbon Dioxide 24.0, Anion Gap 6, BUN 9, Creatinine 0.66 L, Estim Creat Clear Calc 119.49, Est GFR (MDRD) Af Amer 165, Est GFR (MDRD) Non-Af 136, BUN/Creatinine Ratio 13.7, Glucose 110 H, Calcium 8.9, Total Bilirubin 0.70, Direct Bilirubin 0.25, AST 135 H, ALT 272 H, Alkaline Phosphatase 169 H, Total Protein 7.1, Albumin 3.0 L, Globulin 4.1, Lipase 1576 H Radiography Diagnostic Testing: Radiology Impression ERCP X-Ray 09/06/21 18:37 IMPRESSION: There are multiple filling defects in the common bile duct. The common bile duct appears mildly dilated. Electronically Signed: Ras Reid MD at 23:13 EDT , Physical Exam Const no apparent distress Resp normal respiratory effort GI GI Narrative: Nondistended, soft, mildly tender to palpation across the bilateral upper quadrants and particularly in the epigastrium Assessment & Plan Assessment/Plan (1) Acute gallstone pancreatitis: (2) Choledocholithiasis with acute cholecystitis: PLAN: Patient status post ERCP with removal of common duct obstruction and temporary stent placement. Feeling better this morning. Dramatic improvement in patient's laboratories overnight. Given a regular diet by gastroenterology. ? Continue IV fluid support ? Continue IV Zosyn ? Plan for n.p.o. at midnight Thursday anticipation of laparoscopic cholecystectomy with intraoperative cholangiogram by Dr. Kessler Charges/Coding Visit Charges Inpatient E&M: 41246 Subs Hosp L2
[2021-09-07 10:40] VITALS: O2SAT 98
[2021-09-07 11:21] VITALS: BP 126/87; PULSE 64; RESP 16; TEMP 36.9; O2SAT 97
--- NOTE | 2021-09-07 11:50 | PN.HOSP_ITS ---
Documented by User: Timbo FREEDMAN 09/07/21 12:02 Subjective Subjective Patient is a 51-year-old male comfortably resting in bed, alert and orient x3. Patient denies development of any new symptoms overnight. Does not appear in acute distress. Objective Data Objective Data Vital Signs: Vital Signs Temp Pulse Resp BP Pulse Ox 99.4 F H 75 16 142/82 H 95 09/07/21 02:40 09/07/21 02:40 09/07/21 02:40 09/07/21 02:40 09/07/21 02:40 Oxygen Delivery Method Room Air Weight: 225 lb 12.054 oz Body Mass Index (BMI) 36.4 Intake & Output: Intake and Output for Last 24 Hours 09/05/21 09/06/21 09/07/21 23:59 23:59 23:59 Intake Total 2099 / 2099 1708.54 / 1708.54 1822.5 / 1822.5 Output Total 250 / 850 1000 / 1000 Balance 2099 / 2099 1458.54 / 858.54 822.5 / 822.5 Lab / Micro Data Result Diagrams: 09/07/21 06:04 09/07/21 06:04 Labs: Laboratory Results - last 24 hr 09/07/21 06:04: WBC 15.3 H, RBC 4.38 L, Hgb 13.5, Hct 39.8 L, MCV 90.9, MCH 30.8, MCHC 33.9, RDW Std Deviation 40.1, RDW Coeff of Travis 12.0, Plt Count 213, MPV 9.4, Immature Gran % (Auto) 0.600, Neut % (Auto) 90.7 H, Lymph % (Auto) 4.3 L, [place] % (Auto) 4.3, Eos % (Auto) 0.0, Baso % (Auto) 0.1, Absolute Neuts (auto) 13.9 H, Absolute Lymphs (auto) 0.66 L, Nucleated RBC % 0 09/07/21 06:04: Sodium 134 L, Potassium 3.8, Chloride 104, Carbon Dioxide 24.0, Anion Gap 6, BUN 9, Creatinine 0.66 L, Estim Creat Clear Calc 119.49, Est GFR (MDRD) Af Amer 165, Est GFR (MDRD) Non-Af 136, BUN/Creatinine Ratio 13.7, Glucose 110 H, Calcium 8.9, Total Bilirubin 0.70, Direct Bilirubin 0.25, AST 135 H, ALT 272 H, Alkaline Phosphatase 169 H, Total Protein 7.1, Albumin 3.0 L, Globulin 4.1, Lipase 1576 H Radiography Diagnostic Testing: Radiology Impression ERCP X-Ray 09/06/21 18:37 IMPRESSION: There are multiple filling defects in the common bile duct. The common bile duct appears mildly dilated. Electronically Signed: Rsa Reid MD at 23:13 EDT , Physical Exam Const alert, oriented x3 and no apparent distress HEENT head/scalp atraumatic and moist oral mucous membranes Head and Scalp: normocephalic Eyes PERRL, EOMs intact bilaterally and conjunctivae normal Neck no lymphadenopathy, supple and no JVD Resp normal respiratory effort, no retractions and no use of accessory muscles Cardio regular rate, regular rhythm and no JVD GI Inspection: central obesity Palpation: tender and rigid Extremity normal to inspection, full ROM and no clubbing, cyanosis or edema Skin no rashes or lesions noted, no wounds and skin turgor normal Neuro CN's II-XII intact bilaterally Psych affect normal Assessment & Plan Assessment/Plan (1) Choledocholithiasis with acute cholecystitis: (2) Acute gallstone pancreatitis: PLAN: Day 2 Discharge planning: Current plan is for patient to discharge home when medically ready. 1) acute cholecystitis secondary to choledocholithiasis Patient not septic at this time, vital signs stable. White count currently 15,000, up from yesterday. Possibly reactionary to ERCP yesterday. Patient to undergo ERCP this afternoon, per Dr. Ramsey. General surgery following and current plan is for patient to undergo laparoscopic cholecystectomy on 09/09/2021. We will continue IV Zosyn and fluids. 2) acute gallstone pancreatitis Likely combination of gallstone obstruction and alcoholism. Lipase improved from admission currently 12,754. FLP within normal limits. Patient denies any withdrawal symptoms. Patient reports that he usually drinks 8 beers per day, but last time he drank was on 09/03. Folic acid and thiamine replacement ordered. Plan as above. 3) alcoholism Denies any withdrawal symptoms. Plan as above. 4) transaminitis AST and ALT elevated at 419 and 426 respectively. Alk phos currently 201. Likely secondary to above. Plan as above. 5) HTN Well-controlled, continue losartan. DVT prophylaxis - SCDs Patient seen by Timbo Quach PA-C, under the supervision of Dr. Ortiz. Time spent on patient care: 7 minutes. Documented by User: Dr. Bethel Ortiz MD 09/07/21 14:50 Objective Data Lab / Micro Data Result Diagrams: 09/07/21 06:04 09/07/21 06:04 Charges/Coding Addendum Addendum: Dr. Ortiz: I personally reviewed the chart and examined the patient, and agree with the above findings. 51-year-old male presenting with gallstone pancreatitis. Plan is for ERCP today and then an cholecystectomy on Thursday. He is feeling better today states that the pain is improved. Continue with pain meds and anti biotics. Clinical time spent on all aspects of patient care: 20 minutes 09/07/2021: Abdominal pain is significantly improved after ERCP and stone retrieval. Continue with antibiotics he can take p.o. until Thursday night at midnight and then he will be n.p.o. for a lap debbie on Thursday. He still has a leukocytosis but this is to be expected given the stress response after the intervention yesterday, will monitor throughout the weekend. Creatinine is at baseline and lab work is currently stable. Clinical time spent in all aspects of patient care: 18 minutes
[2021-09-07 15:02] VITALS: BP 136/80; PULSE 61; RESP 18; TEMP 36.9; O2SAT 97
--- NOTE | 2021-09-07 16:00 | PCM.PROGNOTE ---
Subjective Subjective Patient has some mild pain but it is tolerable. He rates it as 3 out of 10. No nausea, cramping, diarrhea or bleeding overnight. Objective Data Objective Data Vital Signs: Vital Signs Temp Pulse Resp BP Pulse Ox 98.5 F 61 18 136/80 H 97 09/07/21 15:02 09/07/21 15:02 09/07/21 15:02 09/07/21 15:02 09/07/21 15:02 Oxygen Delivery Method Room Air Weight: 225 lb 12.054 oz Body Mass Index (BMI) 36.4 Intake & Output: Intake and Output for Last 24 Hours 09/05/21 09/06/21 09/07/21 23:59 23:59 23:59 Intake Total 2099 / 2099 1708.54 / 1708.54 3182.5 / 3182.5 Output Total 250 / 850 1000 / 1000 Balance 2099 1458.54 / 858.54 2182.5 / 2182.5 Lab / Micro Data Result Diagrams: 09/07/21 06:04 09/07/21 06:04 Labs: Laboratory Results - last 24 hr 09/07/21 06:04: WBC 15.3 H, RBC 4.38 L, Hgb 13.5, Hct 39.8 L, MCV 90.9, MCH 30.8, MCHC 33.9, RDW Std Deviation 40.1, RDW Coeff of Travis 12.0, Plt Count 213, MPV 9.4, Immature Gran % (Auto) 0.600, Neut % (Auto) 90.7 H, Lymph % (Auto) 4.3 L, [place] % (Auto) 4.3, Eos % (Auto) 0.0, Baso % (Auto) 0.1, Absolute Neuts (auto) 13.9 H, Absolute Lymphs (auto) 0.66 L, Nucleated RBC % 0 09/07/21 06:04: Sodium 134 L, Potassium 3.8, Chloride 104, Carbon Dioxide 24.0, Anion Gap 6, BUN 9, Creatinine 0.66 L, Estim Creat Clear Calc 119.49, Est GFR (MDRD) Af Amer 165, Est GFR (MDRD) Non-Af 136, BUN/Creatinine Ratio 13.7, Glucose 110 H, Calcium 8.9, Total Bilirubin 0.70, Direct Bilirubin 0.25, AST 135 H, ALT 272 H, Alkaline Phosphatase 169 H, Total Protein 7.1, Albumin 3.0 L, Globulin 4.1, Lipase 1576 H Radiography Diagnostic Testing: Radiology Impression ERCP X-Ray 09/06/21 18:37 IMPRESSION: There are multiple filling defects in the common bile duct. The common bile duct appears mildly dilated. Electronically Signed: Ras Reid MD at 23:13 EDT , Physical Exam Const alert General Appearance: cooperative Orientation / Consciousness: oriented to person HEENT hearing grossly normal bilaterally Head and Scalp: normal to inspection Face and Sinus: face symmetric Nose: external nose normal Mouth: oral and palatal mucosa normal Eyes conjunctivae normal General Eye: normal appearance of both eyes Neck full ROM General: normal visual inspection Lymph Lymphatic: no lymphadenopathy noted Chest inspection of chest normal and palpation of chest normal Chest: symmetrical chest wall rise Resp normal respiratory effort Effort and Inspection: able to speak in complete sentences Cardio regular rate GI non-distended Percussion: normal to percussion Rectal Exam: deferred Neuro Speech: speech normal Gait (Neuro): normal gait Assessment & Plan Assessment/Plan (1) Acute gallstone pancreatitis: PLAN: Patient is doing well. He is tolerating his diet without any problems. No signs of any sequela from his pancreatitis. Continue to advance diet. (2) Choledocholithiasis with acute cholecystitis: PLAN: Biliary stent was removed via ERCP. 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 He was doing well and scheduled for cholecystectomy on Thursday. Charges/Coding Visit Charges Inpatient E&M: 63678 Subs Hosp L2
[2021-09-07] MEDS: Losartan Potassium 100 MG Tablet PO (17:09)
[2021-09-07] MEDS: Atorvastatin Calcium 20 MG Tablet PO (17:09)
[2021-09-07 20:47] VITALS: BP 130/70; PULSE 64; RESP 18; TEMP 36.7; O2SAT 96
[2021-09-07] MEDS: Lactated Ringers 1,000 ML 75 ML IV (20:50)
[2021-09-08 03:18] VITALS: BP 144/91; PULSE 54; RESP 18; TEMP 36.5; O2SAT 99
[2021-09-08] MEDS: predniSONE 10 MG Tablet PO (09:02)
[2021-09-08] MEDS: Thiamine Hydrochloride 100 MG Tablet PO (09:03)
[2021-09-08] MEDS: Folic Acid 1 MG Tablet PO (09:03)
[2021-09-08] MEDS: Acetaminophen 325 MG Tablet 650 MG PO (09:07)
--- NOTE | 2021-09-08 09:09 | PN.SURG_ITS ---
Subjective Subjective Patient seen and examined during AM rounds. He complains that he is sore all over and describes this as if he has been working out for hours. He is not sure why he feels this way. He does not believe that his abdominal discomfort is any greater than this generalized soreness. He is tolerated his diet advanc ed without subsequent nausea or vomiting. He confirms that he is ready for surgery tomorrow. Objective Data Objective Data Vital Signs: Vital Signs Temp Pulse Resp BP Pulse Ox 97.7 F L 54 L 18 144/91 H 99 09/08/21 03:18 09/08/21 03:18 09/08/21 03:18 09/08/21 03:18 09/08/21 03:18 Oxygen Delivery Method Room Air Weight: 225 lb 12.054 oz Body Mass Index (BMI) 36.4 Intake & Output: Intake and Output for Last 24 Hours 09/06/21 09/07/21 09/08/21 23:59 23:59 23:59 Intake Total 1708.54 / 1708.54 4512.5 / 4512.5 50 / 50 Output Total 250 / 850 1000 / 1000 Balance 1458.54 / 858.54 3512.5 / 3512.5 50 / 50 Lab / Micro Data Result Diagrams: 09/07/21 06:04 09/07/21 06:04 Physical Exam Const no apparent distress Resp normal respiratory effort GI GI Narrative: Nondistended, soft, minimally tender to palpation across the epigastrium?otherwise exam unremarkable Assessment & Plan Assessment/Plan (1) Acute gallstone pancreatitis: (2) Choledocholithiasis with acute cholecystitis: PLAN: Patient status post ERCP with removal of common duct obstruction and temporary stent placement. Patient's abdominal pain has nearly resolved. He has tolerated advance to regular diet. Confirms that he is ready for gallbladder removal tomorrow. ? Continue IV fluid support ? Continue IV Zosyn ? Plan for n.p.o. at midnight tonight anticipation of laparoscopic cholecystectomy with intraoperative cholangiogram by Dr. Kessler Charges/Coding Visit Charges Inpatient E&M: 66754 Subs Hosp L2
[2021-09-08 09:20] VITALS: BP 142/86; PULSE 67; RESP 18; TEMP 36.6; O2SAT 96
[2021-09-08 10:00] VITALS: PULSE 97; RESP 18; O2SAT 96
[2021-09-08 10:09] LABS: Absolute Lymphocyte Count 2.44 X10^3/uL (0.83-4.51); Absolute Neutrophil Count 11.3 X10^3/uL (2.0-7.7); Basophil# 0.03 X10^3/uL; Basophil% 0.2 % (0-1); Eosinophil# 0.17 X10^3/uL; Eosinophils% 1.1 % (0-5); Hematocrit 39.9 % (40-54); Hemoglobin 13.7 g/dL (13.0-16.5); Lymphocyte # 2.44 X10^3/ul (0.83-4.51); Mean Corp Hgb Conc 34.3 g/dL (32-36); Mean Corpuscular Hgb 30.9 pg (27.0-32.0); Mean Corpuscular Volume 90.1 fL (80-94); Mean Platelet Vol. 9.1 fl (6.2-12.0); Monocyte# 1.24 X10^3/uL; Monocyte% 8.1 % (0-10); NRBC Flagged by Analyzer 0 % (0-5); Neutrophil # 11.27 X10^3/uL (2.7-7.7); Platelet Count 215 K/mm3 (150-450); RBC Distribution Width CV 11.9 % (11.6-14.6); RBC Distribution Width SD 39.3 fl (35.1-43.9); Red Blood Count 4.43 M/mm3 (4.6-6.2); White Blood Count 15.2 K/mm3 (4.4-11.0)
--- NOTE | 2021-09-08 11:49 | PCM.PN.HOSP ---
Documented by User: Timbo FREEDMAN 09/08/21 11:53 Subjective Subjective Patient is a 51-year-old male comfortably resting in bed, alert and orient x3. Patient denies development of any new complaints overnight. Does not appear in acute distress. Objective Data Objective Data Vital Signs: Vital Signs Temp Pulse Resp BP Pulse Ox 98 F 97 18 142/86 H 96 09/08/21 09:20 09/08/21 10:00 09/08/21 10:00 09/08/21 09:20 09/08/21 10:00 Oxygen Delivery Method Room Air Weight: 225 lb 12.054 oz Body Mass Index (BMI) 36.4 Intake & Output: Intake and Output for Last 24 Hours 09/06/21 09/07/21 09/08/21 23:59 23:59 23:59 Intake Total 1708.54 / 1708.54 4512.5 / 4512.5 100 / 100 Output Total 250 / 850 1000 / 1000 Balance 1458.54 / 858.54 3512.5 / 3512.5 100 / 100 Lab / Micro Data Result Diagrams: 09/08/21 09:57 09/07/21 06:04 Labs: Laboratory Results - last 24 hr 09/08/21 09:57: WBC 15.2 H, RBC 4.43 L, Hgb 13.7, Hct 39.9 L, MCV 90.1, MCH 30.9, MCHC 34.3, RDW Std Deviation 39.3, RDW Coeff of Travis 11.9, Plt Count 215, MPV 9.1, Immature Gran % (Auto) 0.600, Neut % (Auto) 74.0 H, Lymph % (Auto) 16.0 L, [place] % (Auto) 8.1, Eos % (Auto) 1.1, Baso % (Auto) 0.2, Absolute Neuts (auto) 11.3 H, Absolute Lymphs (auto) 2.44, Nucleated RBC % 0 Physical Exam Const alert, oriented x3 and no apparent distress HEENT head/scalp atraumatic and moist oral mucous membranes Head and Scalp: normocephalic Eyes PERRL, EOMs intact bilaterally and conjunctivae normal Neck no lymphadenopathy, supple and no JVD Resp normal respiratory effort, no retractions and no use of accessory muscles Cardio regular rate, regular rhythm and no JVD GI normal to inspection, nondistended, normoactive bowel sounds, soft to palpation and non-tender Extremity normal to inspection, full ROM and no clubbing, cyanosis or edema Skin no rashes or lesions noted Neuro CN's II-XII intact bilaterally Psych affect normal Assessment & Plan Assessment/Plan (1) Acute gallstone pancreatitis: (2) Choledocholithiasis with acute cholecystitis: PLAN: Day 3 Discharge planning: Current plan is for patient to discharge home when medically ready. 1) acute cholecystitis secondary to choledocholithiasis Patient not septic at this time, vital signs stable. White count currently 15,000, still elevated from yesterday. General surgery following and current plan is for patient to undergo laparoscopic cholecystectomy on 09/09/2021. We will continue IV Zosyn and fluids. 2) acute gallstone pancreatitis S/P ERCP which resulted in removal of common bile duct obstruction as well as temporary stent placement. No problems reported and advancement of diet. To undergo laparoscopic cholecystectomy as above. 3) alcoholism Denies any withdrawal symptoms. Plan as above. 4) transaminitis AST and ALT elevated at 419 and 426 respectively. Alk phos currently 201. Likely secondary to above. Plan as above. 5) HTN Well-controlled, continue losartan. DVT prophylaxis - SCDs Patient seen by Timbo Quach PA-C, under the supervision of Dr. Ortiz. Time spent on patient care: 7 minutes. Documented by User: Dr. Bethel Ortiz MD 09/08/21 14:19 Objective Data Lab / Micro Data Result Diagrams: 09/08/21 09:57 09/07/21 06:04 Charges/Coding Addendum Addendum: Dr. Ortiz: I personally reviewed the chart and examined the patient, and agree with the above findings. 51-year-old male presenting with gallstone pancreatitis. Plan is for ERCP today and then an cholecystectomy on Thursday. He is feeling better today states that the pain is improved. Continue with pain meds and antibiotics. Clinical time spent on all aspects of patient care: 20 minutes 09/07/2021: Abdominal pain is significantly improved after ERCP and stone retrieval. Continue with antibiotics he can take p.o. until Thursday night at midnight and then he will be n.p.o. for a lap debbie on Thursday. He still has a leukocytosis but this is to be expected given the stress response after the intervention yesterday, will monitor throughout the weekend. Creatinine is at baseline and lab work is currently stable. Clinical time spent in all aspects of patient care: 18 minutes 09/08/2021: Doing well today, denies any significant abdominal pain. He is tolerating a diet okay and he will be made n.p.o. this evening in anticipation of a lap cholecystectomy in the morning. Did slow down his IV fluids as he was able to take n.p.o. Continue with Zosyn until after his cholecystectomy. Clinical time spent in all aspects of patient care: 18 minutes Visit Charges Inpatient E&M: 89320 Subs Hosp L2
[2021-09-08] MEDS: Lactated Ringers 1,000 ML 75 ML IV (12:13)
[2021-09-08 15:20] VITALS: BP 130/83; PULSE 62; RESP 18; TEMP 36.6; O2SAT 96
[2021-09-08 16:00] VITALS: PULSE 62; RESP 18
[2021-09-08] MEDS: Losartan Potassium 100 MG Tablet PO (16:38)
[2021-09-08] MEDS: Atorvastatin Calcium 20 MG Tablet PO (16:38)
[2021-09-08] MEDS: HYDROmorphone 1 MG/ML Syringe IV ×2 (16:49→23:54)
[2021-09-08] MEDS: 0.9% Normal Saline 1,000 ML 75 ML IV (19:10)
[2021-09-08 21:35] VITALS: BP 139/83; PULSE 53; RESP 18; TEMP 36.6; O2SAT 96
[2021-09-08] MEDS: Ondansetron 4 MG/2 ML Vial IV (21:44)
[2021-09-08] MEDS: 0.9% Saline Lock 10 ML Syringe IV (21:44)
[2021-09-09] VITALS (10 sets, daily range): BP systolic 109–150; BP diastolic 64–89; PULSE 71–96; RESP 16–18; TEMP 36.4–37.9; O2SAT 94–98; BMI 36.4
[2021-09-09 05:37] LABS: Absolute Lymphocyte Count 2.16 X10^3/uL (0.83-4.51); Absolute Neutrophil Count 10.7 X10^3/uL (2.0-7.7); Basophil# 0.04 X10^3/uL; Basophil% 0.3 % (0-1); Eosinophil# 0.23 X10^3/uL; Eosinophils% 1.6 % (0-5); Hematocrit 42.6 % (40-54); Hemoglobin 14.2 g/dL (13.0-16.5); Lymphocyte # 2.16 X10^3/ul (0.83-4.51); Lymphocyte % 14.6 % (19-41); Mean Corp Hgb Conc 33.3 g/dL (32-36); Mean Corpuscular Hgb 30.3 pg (27.0-32.0); Mean Platelet Vol. 9.3 fl (6.2-12.0); Monocyte# 1.57 X10^3/uL; Monocyte% 10.6 % (0-10); NRBC Flagged by Analyzer 0 % (0-5); Neutrophil # 10.68 X10^3/uL (2.7-7.7); Neutrophil % 72.4 % (47-70); POSITIVE DIFFERENTIAL YES; Platelet Count 251 K/mm3 (150-450); RBC Distribution Width CV 12.1 % (11.6-14.6); RBC Distribution Width SD 40.6 fl (35.1-43.9); Red Blood Count 4.68 M/mm3 (4.6-6.2); White Blood Count 14.8 K/mm3 (4.4-11.0)
[2021-09-09 05:40] LABS: Differential Indicated SCAN CRITERIA MET
[2021-09-09 05:57] LABS: International Normalized Ratio 1.1; Prothrombin Time (Protime)PT. 13.6 SECONDS (11.7-14.9)
[2021-09-09 05:58] LABS: Anion Gap 7 (5-15); BUN 12 mg/dL (7-18); Calcium,Total 8.7 mg/dL (8.5-10.1); Chloride 104 mmol/L (98-107); Creatinine, Serum 0.75 mg/dL (0.70-1.30); EST Glomerular Filtration Rate 116 mL/min (>60); Est Glom Filt Rate - Afr Amer 141 mL/min (>60); Estimated Creatinine Clearance 105.15 ml/min; Glucose 83 mg/dL (74-106); Partial Thromboplast Time 28.2 Seconds (24.1-36.2); Potassium 3.6 mmol/L (3.5-5.1); Sodium Level 136 mmol/L (136-145)
--- NOTE | 2021-09-09 10:05 | NURSING ---
Patient off unit to OR.
--- NOTE | 2021-09-09 11:30 | GALL_PTH ---
PATIENT: LISBET MAYER LOC: [facility] U#:[id number] AGE/SX: 51/M ROOM: KS314 RE09/05/[address]: Dr. Ajit Way MD : 1970 BED: 1 DIS: 09/10/2021 SPEC #: [id number] RECD: 09/09/21 17:26 STATUS: JIHAN REElsa #: [id number] XUAN: 09/09/21 11:[address]: Susie Kessler DEPT: SURGICAL PATHOLOGY RECD BY: Madeleine Brown ENTERED: 09/10/21 08:23 SP TYPE: GALLBLADDE OTHR DR: MD Dr. Jeffrey Antunez MD Dr. Prakash Chand, MD Dr. Rahsaan Friend, DO Dr. Susie Kessler MD Tissues: Gallbladder, NOS Procedures: Surgery Specimen Level III Comments: @ Ordering doctor for SUIII edited from to @ by DEISY at 09/10/21 1500 @ Submitting doctor edited from to @ by DEISY at 09/10/21 1500 HEADER OPERATION: Laparoscopic Cholecystectomy PRE-OP DIAGNOSIS: Choledocholithiasis with acute cholecystitis TISSUE SUBMITTED: Gallbladder MICROSCOPIC DIAGNOSIS Gallbladder, cholecystectomy: Chronic cholecystitis and cholelithiasis. AM:sanchez 09/11/2021 MICROSCOPIC DESCRIPTION Slides are reviewed. GROSS DESCRIPTION Received is one container labeled with the patient's name and designated gallbladder. The specimen consists of a gallbladder measuring 7 cm in length and up to 3.5 cm in diameter. The external surface is pink-jama, smooth and glistening for the most part. Focally it is granular, hemorrhagic and contains cautery artifact. The gallbladder contains green-yellow mucoid bile. Also present in the container and also in the gallbladder are multiple multifaceted greenish-brown stones measuring in aggregate 4.5 x 4.5 x 1.5 cm and 0.5 to 1 cm in greatest dimension. The mucosa is bile-stained and without any mass lesions. The gallbladder wall measures up to 0.3 cm in thickness. Hiv Prevention Specialist sections from the gallbladder and the cystic duct are submitted in one cassette. / SJ:sanchez 09/10/2021 TC:3 CPT: 22907
--- NOTE | 2021-09-09 13:26 | PN.HOSP_ITS ---
Documented by User: Timbo FREEDMAN 09/09/21 13:29 Subjective Subjective Patient is a 51-year-old male comfortably resting in bed, alert and orient x3. Patient denies development of any new symptoms overnight. Does not appear in acute distress. Objective Data Objective Data Vital Signs: Vital Signs Temp Pulse Resp BP Pulse Ox 99.5 F H 96 18 109/69 96 09/09/21 09:23 09/09/21 09:23 09/09/21 09:23 09/09/21 09:23 09/09/21 09:23 Oxygen Delivery Method Room Air Weight: 225 lb 12.054 oz Body Mass Index (BMI) 36.4 Intake & Output: Intake and Output for Last 24 Hours 09/07/21 09/08/21 09/09/21 23:59 23:59 23:59 Intake Total 4512.5 / 4512.5 2395.00 / 2395.00 378.75 / 378.75 Output Total 1000 / 1000 Balance 3512.5 / 3512.5 2395.00 / 2395.00 378.75 / 378.75 Lab / Micro Data Result Diagrams: 09/09/21 05:22 09/09/21 05:22 Labs: Laboratory Results - last 24 hr 09/09/21 05:22: WBC 14.8 H, RBC 4.68, Hgb 14.2, Hct 42.6, MCV 91.0, MCH 30.3, MCHC 33.3, RDW Std Deviation 40.6, RDW Coeff of Travis 12.1, Plt Count 251, MPV 9.3, Immature Gran % (Auto) 0.500, Neut % (Auto) 72.4 H, Lymph % (Auto) 14.6 L, Larue % (Auto) 10.6 H, Eos % (Auto) 1.6, Baso % (Auto) 0.3, Absolute Neuts (auto) 10.7 H, Absolute Lymphs (auto) 2.16, Nucleated RBC % 0, Diff Path Review September09/09/21 05:22: Sodium 136, Potassium 3.6, Chloride 104, Carbon Dioxide 25.0, Anion Gap 7, BUN 12, Creatinine 0.75, Estim Creat Clear Calc 105.15, Est GFR (MDRD) Af Amer 141, Est GFR (MDRD) Non-Af 116, BUN/Creatinine Ratio 16.0, Glucose 83, Calcium 8.7 09/09/21 05:22: PT 13.6, INR 1.1, APTT 28.2 Physical Exam Const oriented x3 and no apparent distress HEENT head/scalp atraumatic and moist oral mucous membranes Head and Scalp: normocephalic Eyes PERRL, EOMs intact bilaterally and conjunctivae normal Neck no lymphadenopathy, supple and no JVD Resp normal respiratory effort, no retractions and no use of accessory muscles Cardio regular rate, regular rhythm and no JVD GI normal to inspection, nondistended, normoactive bowel sounds and soft to palpation Extremity normal to inspection, full ROM and no clubbing, cyanosis or edema Skin no rashes or lesions noted, no wounds and skin turgor normal Neuro CN's II-XII intact bilaterally Psych affect normal Assessment & Plan Assessment/Plan (1) Acute gallstone pancreatitis: (2) Choledocholithiasis with acute cholecystitis: PLAN: Day 4 Discharge planning: Current plan is for patient to discharge home when medically ready. 1) acute cholecystitis secondary to choledocholithiasis Patient not septic at this time, vital signs stable. White count currently 14,000, slightly better from yesterday. General surgery following and current plan is for patient to undergo laparoscopic cholecystectomy on 09/09/2021. We will continue IV Zosyn and fluids. 2) acute gallstone pancreatitis S/P ERCP which resulted in removal of common bile duct obstruction as well as temporary stent placement. No problems reported and advancement of diet. To undergo laparoscopic cholecystectomy as above. 3) alcoholism Denies any withdrawal symptoms. Plan as above. 4) transaminitis AST and ALT elevated at 419 and 426 respectively. Alk phos currently 201. Likely secondary to above. Plan as above. 5) HTN Well-controlled, continue losartan. DVT prophylaxis - SCDs Patient seen by Timbo Quach PA-C, under the supervision of Dr. Way. Time spent on patient care: 8 minutes. Documented by User: Dr. Ajit Way MD 09/09/21 16:24 Subjective Subjective Follow-up for acute cholecystitis, choledocholithiasis status post ERCP Patient seen and examined in the morning before lap debbie and afternoon in PACU Patient denies any abdominal pain. Mild jaundice improving. Objective Data Lab / Micro Data Result Diagrams: 09/09/21 05:22 09/09/21 05:22 Physical Exam Narrative General: Alert, Oriented x3, Cooperative HEENT: Mild icterus atraumatic, PERRLA, EOMI, Normocephalic Oral: No Gingival or Mucosal Lesions/ Ulcerations Neck: Supple, No JVD, Negative Carotid Bruits Lungs: Air entry diminished in bilateral lung bases. No crepitation/rhonchi Cardiovascular: Regular rate, Regular Rhythm, Normal S1, Normal S2, No murmurs Abdomen: Bowel Sounds Present, Soft, Non Tender, Non-Distended : No renal angle tenderness. No suprapubic tenderness. Extremities: No edema, Capillary Refill Less than 3 Seconds Skin: No rashes, No breakdown Musculoskeletal: No Tenderness to Palpation of Joints or Extremities Neurological: Cranial nerves II-XII grossly intact, DTR 2+/4 and Symmetrical, Neuro grossly intact Psych/Mental Status: Normal Affect, Appropriate Assessment & Plan Assessment/Plan (1) Choledocholithiasis with acute cholecystitis: PLAN: This patient was seen in conjunction with JASMINA Tucker. I have independently interviewed and examined the patient and reviewed pertinent history, examination findings, laboratory and plan of management. I have re viewed the note and agree with the documented findings with the few additional points. In brief, patient is admitted for persistent excruciating nonradiating epigastric abdominal pain started on the day of admission about 2 hours after eating beef stew. Patient had abdominal pain 3 days before admission that lasted for 2 hours. Patient had elevated transaminases, ALT AST in 400, total bilirubin 1.5. Plan to 1, lipase 30.4 and 36 alkaline phosphatase 236. Gallbladder ultrasound reported cholelithiasis with no convincing evidence of acute cholecystitis but borderline CBD dilatation Patient was admitted with acute gallstone pancreatitis. GI was consulted and patient had ERCP on 09/06 [facility] showed dilated upper third of CBD with obstructed stone. Biliary sphincterotomy, complete removal of stone was accomplished . Patient had improvement in abdominal pain. Patient was started on IV Zosyn since admission. Subsequently patient had lap debbie today. Patient seen and examined in the afternoon in PACU. The patient is still drowsy and groggy. As per surgeon, he is cleared for discharge. Discussed with JASMINA Izquierdo if patient feels good with no nausea or vomiting, he spontaneously voids urine and no severe abdominal pain other than expected postop pain, he can be discharged in the evening otherwise tomorrow a.m. Chronic alcohol use and dependence: Patient also drinks 8 undersides of beers every day. I have discussed my assessment with JASMINA Tucker and orders have been revie wed. Charges/Coding Visit Charges Inpatient E&M: 15326 Subs Hosp L2
--- NOTE | 2021-09-09 14:15 | NURSING ---
Spoke with Jo in AC and let her know this RN sent down 1400 dose of Zosyn since patient is still off unit.
--- NOTE | 2021-09-09 15:10 | OP.PCM_ITS ---
Report of Operation Date of Procedure: 09/09/21 Pre-Operative Diagnosis: Acute cholecystitis, choledocholithiasis status post E RN PROGRESSIVE CARE UNIT Post-Operative Diagnosis: Same Surgery/Procedure Performed:: Laparoscopic cholecystectomy Surgeon: Laurie Zelaya Type of Anesthesia: General/Supplemental Anesthesiologist: Parrish Torres Special Medications: Zosyn 3.375 g IV every 8 hours for acute cholecystitis/choledocholithiasis Specimen's removed: Gallbladder and stones Estimated Blood Loss (mL): 20 cc Description of Procedure: Indications: this is a 51 year-old male who developed abdominal pain/nausea/vomiting and on workup was found to have choledocholithiasis status post ERCP, cholelithiasis, with a normal common bile duct. Laparoscopic cholecystectomy was elected. Description procedure: The patient was placed on operating table in supine position. A timeout was completed verifying correct patient, procedure, site, position and special equipment prior to beginning procedure. General Anesthesia was induced. The abdomen was prepped and draped in usual sterile fashion. An incision was made in the natural skin line above the umbilicus. The fascia was elevated and incised. The peritoneum was elevated and incised. Entry into the peritoneum was confirmed visually and no bowel was noted in the vicinity of the incision. Raza trocar was placed. The abdomen was insufflated with carbon dioxide to a pressure of 12-15 mmHg. Patient tolerated insufflation well. The laparoscope was then inserted and abdomen inspected. No injuries from initial trocar placement were noted. Additional trochars were then inserted in the following locations 5 mm trocar in the epigastrium and 2 more 5 mm trochars along the right costal margin. The abdomen was inspected no abnormalities were found. The table is placed in reverse Trendelenburg position with the right side up. The dome of the gallbladder was grasped with atraumatic grasper passed through the lateral port and retracted over the dome of the liver. Infundibulum was then grasped with atraumatic grasper through the midclavicular port and retracted to the right lower quadrant. This maneuver exposed Calot's triangle. The peritoneum overlying the gallbladder infundibulum was then incised and cystic duct and artery identified and circumferentially dissected. The cystic duct was noted to be large, stones were milked however patient appeared to have a very short cystic duct thus unable to do cholangiograms. The epigastric trocar exchanged to a 12 mm. 10 mm clips were placed on the cystic duct and 5 mm on the cystic artery?both were then doubly clipped and divided close to the gallbladder. The gallbladder then dissected from its peritoneal attachments by electrocautery. Hemostasis was checked and the gallbladder and contained stones were removed using the endoscopic retrieval bag through the umbilical port. The gallbladder is passed off table as specimen. The gallbladder fossa was irrigated with saline and hemostasis obtained. There is no evidence of bleeding from the gallbladder fossa or cystic artery leakage of bile from the cystic duct stump. Secondary trochars removed under direct vision. No bleeding was noted the trocar sites. The laparoscope was withdrawn and umbilical trocar removed. The abdomen was allowed to collapse. The fascia of the 12 mm trocar was closed with a [id number] 0 Vicryl suture. The skin was closed with sutures of 4-0 Monocryl and Steri-Strips. The patient was extubated. The patient tolerated procedure well and was taken to the postanesthesia care unit in stable condition. Complications none
--- NOTE | 2021-09-09 15:18 | EX.PCM.DISCH ---
Discharge Instructions Diet Discharge Diet: Light diet - advance as tolerated Activity Discharge Activity: May Not Drive (while taking narcotic pain medications.) May shower in (days): 1 Lifting Restrictions: no lifting >20 lbs x 2 wks, no strenuous exercise for 4 wks Dressing / Incision Call your doctor if your incision/area has: Continuous Slow Oozing, Sudden Increased Bleeding, Increased Pain/ Swelling, Increased Redness, Foul Smelling Discharge and Swelling at the incision site Call your doctor if you observe: Fever of 101 or Higher Remove Dressing in: 2 days Cleanse incision/area with: Soap & Water Additional Dressing/Incision Instructions:: Steri-Strips will fall off in 7 to 10 days, if they do not fall off okay to remove after 10 days. Follow Up Care Please Follow Up With: Susie Kessler MD When: Call the office for a follow-up appointment 2 weeks; after 5 PM and on the weekends call [phone] with any concerns. Test Results: Test results from this visit will be discussed in further detail at your follow-up appointment, if applicable. Discharge Plan Admission Admit Date/Time: 09/05/21 22:19 Attending Provider: Ajit Way Primary Care Provider: Jovanny Gillette Consulting Providers: Susie Kessler ; Augie Ramsey Discharge Orders/Prescriptions Prescriptions: New oxycodone-acetaminophen 5-325 mg tablet 1 - 2 tab PO Q6H PRN (Reason: pain) 3 Days Qty: 10 RF: 0 Continued albuterol sulfate [ProAir HFA] 90 mcg/actuation HFA aerosol inhaler 2 puff INHALATION PRN PRN (Reason: Shortness Of Breath) RF: 0 fluticasone propionate [Flovent HFA] 220 mcg/actuation HFA aerosol inhaler 1 puff INHALATION PRN PRN (Reason: shortness of breath) RF: 0 losartan 100 mg tablet 100 mg PO QDAY RF: 0 prednisone 10 mg tablet 10 mg PO PRN PRN (Reason: joint pain ) RF: 0 atorvastatin 20 mg tablet 20 mg PO QHS Qty: 90 RF: 3 Referrals / Follow Up: Jovanny Gillette MD [Primary Care Provider] - Disposition Disposition (needs filled in before D/C Order can be placed): Home, Self Care
[2021-09-09] MEDS: 0.9% Normal Saline 1,000 ML 75 ML IV (18:56)
[2021-09-09] MEDS: Thiamine Hydrochloride 100 MG Tablet PO (18:58)
[2021-09-09] MEDS: Folic Acid 1 MG Tablet PO (18:58)
[2021-09-09] MEDS: predniSONE 10 MG Tablet PO (18:59)
[2021-09-09] MEDS: Atorvastatin Calcium 20 MG Tablet PO (18:59)
[2021-09-09] MEDS: oxyCODONE 5 MG Tablet PO (22:37)
[2021-09-10 04:04] VITALS: BP 118/88; PULSE 81; RESP 16; TEMP 37.2; O2SAT 96
--- NOTE | 2021-09-10 04:10 | NURSING ---
Dr. Kessler called last night 09/09 at 2200 to check on patient. She wanted Zosyn stopped and patient may go home today.
[2021-09-10 06:25] LABS: Absolute Neutrophil Count 9.5 X10^3/uL (2.0-7.7); Basophil# 0.03 X10^3/uL; Basophil% 0.2 % (0-1); Eosinophil# 0.06 X10^3/uL; Eosinophils% 0.5 % (0-5); Hematocrit 42.3 % (40-54); Hemoglobin 13.8 g/dL (13.0-16.5); Lymphocyte % 12.5 % (19-41); Mean Corp Hgb Conc 32.6 g/dL (32-36); Mean Corpuscular Hgb 30.3 pg (27.0-32.0); Mean Corpuscular Volume 92.8 fL (80-94); Mean Platelet Vol. 9.3 fl (6.2-12.0); Monocyte# 1.45 X10^3/uL; Monocyte% 11.4 % (0-10); NRBC Flagged by Analyzer 0 % (0-5); Neutrophil # 9.49 X10^3/uL (2.7-7.7); Neutrophil % 74.5 % (47-70); Platelet Count 240 K/mm3 (150-450); RBC Distribution Width CV 11.8 % (11.6-14.6); RBC Distribution Width SD 40.5 fl (35.1-43.9); Red Blood Count 4.56 M/mm3 (4.6-6.2); White Blood Count 12.8 K/mm3 (4.4-11.0)
[2021-09-10] MEDS: Thiamine Hydrochloride 100 MG Tablet PO (07:56)
[2021-09-10] MEDS: Folic Acid 1 MG Tablet PO (07:56)
[2021-09-10] MEDS: oxyCODONE 5 MG Tablet PO (08:00)
--- NOTE | 2021-09-10 08:58 | PCM.PN.SRG ---
Subjective Subjective Patient tolerating diet-- states previous abdominal pain resolved Objective Data Objective Data Vital Signs: Vital Signs Temp Pulse Resp BP Pulse Ox 99.0 F 81 16 118/88 H 96 09/10/21 04:04 09/10/21 04:04 09/10/21 04:04 09/10/21 04:04 09/10/21 04:04 Oxygen Delivery Method Room Air Weight: 225 lb 12.054 oz Body Mass Index (BMI) 36.4 Intake & Output: Intake and Output for Last 24 Hours 09/08/21 09/09/21 09/10/21 23:59 23:59 23:59 Intake Total 2395.00 / 2395.00 1156.25 / 1156.25 1286.25 / 1286.25 Output Total 550 / 550 Balance 2395.00 / 2395.00 606.25 / 606.25 1286.25 / 1286.25 Lab / Micro Data Result Diagrams: 09/10/21 05:55 09/09/21 05:22 Labs: Laboratory Results - last 24 hr 09/10/21 05:55: WBC 12.8 H, RBC 4.56 L, Hgb 13.8, Hct 42.3, MCV 92.8, MCH 30.3, MCHC 32.6, RDW Std Deviation 40.5, RDW Coeff of Travis 11.8, Plt Count 240, MPV 9.3, Immature Gran % (Auto) 0.900, Neut % (Auto) 74.5 H, Lymph % (Auto) 12.5 L, [place] % (Auto) 11.4 H, Eos % (Auto) 0.5, Baso % (Auto) 0.2, Absolute Neuts (auto) 9.5 H, Absolute Lymphs (auto) 1.60, Nucleated RBC % 0 Physical Exam Const oriented x3 and no apparent distress Resp normal respiratory effort Cardio regular rate GI GI Narrative: Abdomen: Soft, nondistended, tender near incision's dressed clean dry and intact, no peritoneal signs Assessment & Plan Assessment/Plan (1) S/P laparoscopic cholecystectomy: (2) S/P ERCP: PLAN: Patient tolerating regular diet and states his previous abdominal pain has resolved. Only has some incisional pain patient has not taken any pain meds after the surgery. Okay to DC home follow-up in 2 weeks. Susie Kessler M.D. Pager: [phone] [facility] [address] [place] [address], [address] [place] [address] Office: [phone]
[2021-09-10 09:44] VITALS: BP 123/88; PULSE 78; RESP 16; TEMP 36.9; O2SAT 98
--- NOTE | 2021-09-10 10:26 | PCM.DC ---
Discharge Instructions Diet Discharge Diet: Light diet - advance as tolerated Activity May shower in (days): 1 Dressing / Incision Call your doctor if your incision/area has: Continuous Slow Oozing, Sudden Increased Bleeding, Increased Pain/ Swelling, Increased Redness, Foul Smelling Discharge and Swelling at the incision site Call your doctor if you observe: Fever of 101 or Higher Cleanse incision/area with: Soap & Water Additional Dressing/Incision Instructions:: Steri-Strips will fall off in 7 to 10 days, if they do not fall off okay to remove after 10 days. Follow Up Care Please Follow Up With: Susie Kessler MD Test Results: Test results from this visit will be discussed in further detail at your follow-up appointment, if applicable. Discharge Plan Admission Admit Date/Time: 09/05/21 22:19 Primary Reason for Your Visit: Abdominal pain with N/V/D. Attending Provider: Ajit Way Primary Care Provider: Jovanny Gillette Consulting Providers: Susie Kessler ; Augie Ramsey Discharge Orders/Prescriptions Prescriptions: New oxycodone-acetaminophen 5-325 mg tablet 1 - 2 tab PO Q6H PRN (Reason: pain) 3 Days Qty: 10 RF: 0 Continued albuterol sulfate [ProAir HFA] 90 mcg/actuation HFA aerosol inhaler 2 puff INHALATION PRN PRN (Reason: Shortness Of Breath) RF: 0 fluticasone propionate [Flovent HFA] 220 mcg/actuation HFA aerosol inhaler 1 puff INHALATION PRN PRN (Reason: shortness of breath) RF: 0 losartan 100 mg tablet 100 mg PO QDAY RF: 0 prednisone 10 mg tablet 10 mg PO PRN PRN (Reason: joint pain ) RF: 0 atorvastatin 20 mg tablet 20 mg PO QHS Qty: 90 RF: 3 Referrals / Follow Up: Jovanny Gillette MD [Primary Care Provider] - Within 2 Weeks Susie Kessler MD [STAFF PHYSICIAN] - Within 2 Weeks Disposition Disposition (needs filled in before D/C Order can be placed): Home, Self Care
[2021-09-10 12:05] VITALS: BP 128/70; PULSE 78; RESP 16; TEMP 36.8; O2SAT 98
--- NOTE | 2021-09-10 12:25 | PHA.DC.MC ---
Pharmacy Service has performed discharge medication reconciliation and counseling for this patient. 1. OXYCODONE/ACETAMINOPHEN 5/325MG 1-2T PO Q6H PRN PAIN The patient's discharge medication list was reviewed for discrepancies and discrepancies were resolved. Home Medications albuterol sulfate 90 mcg/actuation aerosol inhaler 2 puff INHALATION PRN PRN 07/23/17 fluticasone propionate 220 mcg/actuation HFA aerosol inhaler 1 puff INHALATION PRN PRN 07/23/17 losartan 100 mg tablet 100 mg PO QDAY 07/23/17 atorvastatin 20 mg tablet 20 mg PO QHS #90 tab 08/29/20 prednisone 10 mg PO PRN PRN 11/30/20 oxycodone-acetaminophen 1 - 2 tab PO Q6H PRN 3 Days #10 tab 09/09/21 The patient was counseled on the following discharge medications and changes in medications for homegoing were reviewed. The Reason for Use, instructions for use, and potential side effects were reviewed for all new medications. The patient's questions regarding all of their medications were answered. The patient was able to verbally demonstrate an understanding of their discharge medications.
--- NOTE | 2021-09-10 12:49 | DS.PCM_ITS ---
Documented by User: Timbo FREEDMAN 09/10/21 13:07 Providers Date of Admission: 09/05/21 Date of Discharge: 09/10/21 Primary Care Physician: Dr. Jovanny Gillette MD Consultations 09/05/21 23:11 Consult: Gastroenterology Routine Consulting Provider: Augie Ramsey Reason for Consult: Gallstone pancreatitis EMERGENT Consult: No Notified: Yes Date Notified: 09/05/21 Time Notified: 22:28 Method of Notification: Text Consult: General Surgery Routine Consulting Provider: Susie Kessler Reason for Consult: Gallstone pancreatitis EMERGENT Consult: No Notified: Yes Date Notified: 09/05/21 Time Notified: 22:27 Method of Notification: Text Reason For Visit: ACUTE GALLBLADDER PANCREATITIS Diagnosis Discharge Diagnosis (1) S/P laparoscopic cholecystectomy: Status: Acute Code(s): Z90.49 - Acquired absence of other specified parts of digestive tract (2) S/P ERCP: Status: Acute Code(s): Z98.890 - Other specified postprocedural states Medications at Discharge Home Medications albuterol sulfate 90 mcg/actuation aerosol inhaler 2 puff INHALATION PRN PRN 07/23/17 fluticasone propionate 220 mcg/actuation HFA aerosol inhaler 1 puff INHALATION PRN PRN 07/23/17 losartan 100 mg tablet 100 mg PO QDAY 07/23/17 atorvastatin 20 mg tablet 20 mg PO QHS #90 tab 08/29/20 prednisone 10 mg PO PRN PRN 11/30/20 oxycodone-acetaminophen 1 - 2 tab PO Q6H PRN 3 Days #10 tab 09/09/21 Hospital Course Operations cholecystecomy and ERCP Summary of Care Provided Minutes Spent on Discharge: 20 Hospital Course: Patient is a 51-year-old male who was admitted to [facility] on 09/05/2021 for evaluation and management of abdominal pain. Hospital course and management as below. 1) acute cholecystitis secondary to choledocholithiasis Patient not septic at this time, vital signs stable. White count improved overall from admission. Managed on IV Zosyn throughout admission. Patient underwent laparoscopic cholecystectomy on 09/09/2021. No complications noted by general surgery. Patient is to follow-up with general surgery in the next 1 to 2 weeks. No antibiotics indicated on discharge. 2) acute gallstone pancreatitis S/P ERCP which resulted in removal of common bile duct obstruction as well as temporary stent placement. No problems reported and advancement of diet. 3) alcoholism Denies any withdrawal symptoms. Plan as above. 4) transaminitis AST and ALT elevated at 419 and 426 respectively. Alk phos currently 201. Likely secondary to above. Plan as above. 5) HTN Well-controlled, continue losartan. Patient seen by Timbo Quach PA-C, under the supervision of Dr. Way. Time spent on patient care: 20 minutes. Physical Exam Narrative Patient is a 51-year-old male comfortably resting in bed, alert and orient x3. Patient reports that his postoperative pain is well controlled and denies any new symptoms. Does not appear in acute distress. Const alert, oriented x3 and no apparent distress HEENT normocephalic, head/scalp atraumatic and hearing grossly normal bilaterally Eyes PERRL and conjunctivae normal Neck no lymphadenopathy, supple and no JVD Resp normal respiratory effort, no retractions and no use of accessory muscles Cardio regular rate, regular rhythm and no JVD GI normal to inspection, nondistended, normoactive bowel sounds and soft to palpation Extremity normal to inspection, full ROM and no clubbing, cyanosis or edema Skin no rashes or lesions noted, no wounds and skin turgor normal Neuro CN's II-XII intact bilaterally Psych affect normal Weight / BMI Weight Weight: 225 lb 12.054 oz Body Mass Index (BMI) 36.4 ABG / Lab / Microbiology Data Result Diagrams: 09/10/21 05:55 09/09/21 05:22 Laboratory: Laboratory Results - last 24 hr 09/10/21 05:55: WBC 12.8 H, RBC 4.56 L, Hgb 13.8, Hct 42.3, MCV 92.8, MCH 30.3, MCHC 32.6, RDW Std Deviation 40.5, RDW Coeff of Travis 11.8, Plt Count 240, MPV 9.3, Immature Gran % (Auto) 0.900, Neut % (Auto) 74.5 H, Lymph % (Auto) 12.5 L, [place] % (Auto) 11.4 H, Eos % (Auto) 0.5, Baso % (Auto) 0.2, Absolute Neuts (auto) 9.5 H, Absolute Lymphs (auto) 1.60, Nucleated RBC % 0 D/C Instructions Discharge Diet: Light diet - advance as tolerated May shower in (days): 1 Call your doctor if your incision/area has: Continuous Slow Oozing, Sudden Increased Bleeding, Increased Pain/ Swelling, Increased Redness, Foul Smelling Discharge and Swelling at the incision site Call your doctor if you observe: Fever of 101 or Higher Cleanse incision/area with: Soap & Water Additional Dressing/Incision Instructions: Steri-Strips will fall off in 7 to 10 days, if they do not fall off okay to remove after 10 days. Please Follow Up With: Susie Kessler MD When: Call the office for a follow-up appointment 2 weeks; after 5 PM and on the weekends call [phone] with any concerns. Meaningful Use Info Meaningful Use Diagnoses (Choose all that apply): None applicable Discharge Plan Admission Admit Date/Time: 09/05/21 22:19 Primary Reason for Your Visit: Abdominal pain with N/V/D. Attending Provider: Ajit Way Primary Care Provider: Jovanny Gillette Consulting Providers: Susie Kessler ; Augie Ramsey Discharge Orders/Prescriptions Prescriptions: New oxycodone-acetaminophen 5-325 mg tablet 1 - 2 tab PO Q6H PRN (Reason: pain) 3 Days Qty: 10 RF: 0 Continued albuterol sulfate [ProAir HFA] 90 mcg/actuation HFA aerosol inhaler 2 puff INHALATION PRN PRN (Reason: Shortness Of Breath) RF: 0 fluticasone propionate [Flovent HFA] 220 mcg/actuation HFA aerosol inhaler 1 puff INHALATION PRN PRN (Reason: shortness of breath) RF: 0 losartan 100 mg tablet 100 mg PO QDAY RF: 0 prednisone 10 mg tablet 10 mg PO PRN PRN (Reason: joint pain ) RF: 0 atorvastatin 20 mg tablet 20 mg PO QHS Qty: 90 RF: 3 Referrals / Follow Up: Jovanny Gillette MD [Primary Care Provider] - Within 2 Weeks (APPOINTMENT 09/23/21 @ 11:30AM) Susie Kessler MD [STAFF PHYSICIAN] - Within 2 Weeks (LEFT MESSAGE FOR 'S OFFICE TO CALL PATIENT TO SET-UP APPOINTMENT.) Disposition Disposition (needs filled in before D/C Order can be placed): Home, Self Care Documented by User: Dr. Ajit Way MD 09/10/21 17:34 Providers Date of Admission: 09/05/21 Reason For Visit: ACUTE GALLBLADDER PANCREATITIS Medications at Discharge Home Medications albuterol sulfate 90 mcg/actuation aerosol inhaler 2 puff INHALATION PRN PRN 07/23/17 fluticasone propionate 220 mcg/actuation HFA aerosol inhaler 1 puff INHALATION PRN PRN 07/23/17 losartan 100 mg tablet 100 mg PO QDAY 07/23/17 atorvastatin 20 mg tablet 20 mg PO QHS #90 tab 08/29/20 prednisone 10 mg PO PRN PRN 11/30/20 oxycodone-acetaminophen 1 - 2 tab PO Q6H PRN 3 Days #10 tab 09/09/21 Hospital Course Summary of Care Provided Hospital Course: This patient was seen in conjunction with JASMINA Tucker. I have independently interviewed and examined the patient and reviewed pertinent history, examination findings, laboratory and plan of management. I have reviewed the note and agree with the documented findings with the few additional points. In brief, patient is admitted for persistent excruciating nonradiating epigastric abdominal pain started on the day of admission about 2 hours after eating beef stew. Patient had abdominal pain 3 days before admission that lasted for 2 hours. Patient had elevated transaminases, ALT AST in 400, total bilirubin 1.5. Direct bilirubin 1.2. Lipase 30,000 alkaline phosphatase 236. Gallbladder ultrasound reported cholelithiasis with no convincing evidence of acute cholecystitis but borderline CBD dilatation Patient was admitted with acute gallstone pancreatitis. GI was consulted and patient had ERCP on 09/06 which showed dilated upper third of CBD with obstructed stone. Biliary sphincterotomy, complete removal of stone was accomplished . Patient had improvement in abdominal pain. Patient was started on IV Zosyn since admission. Subsequently patient had lap debbie on 09/09/2021 Overnight patient did well. Patient is discharged home. Does not need antibiotic. Follow-up surgery as per schedule. Chronic alcohol use and dependence: Patient also drinks 8 undersides of beers every day. I have discussed my assessment with JASMINA Tucker and orders have been reviewed. Physical Exam Narrative Seen and examined on the day of discharge. Patient does not have abdominal pain. Passed flatus and bowel movement. Ready for discharge. General: Alert, Oriented x3, Cooperative HEENT: Mild icterus atraumatic, PERRLA, EOMI, Normocephalic Oral: No Gingival or Mucosal Lesions/ Ulcerations Neck: Supple, No JVD, Negative Carotid Bruits Lungs: Air entry equal in bilateral lung bases. No crepitation/rhonchi Cardiovascular: Regular rate, Regular Rhythm, Normal S1, Normal S2, No murmurs Abdomen: Bowel Sounds Present, Soft, Non Tender, Non-Distended. Ports dressing are dry : No renal angle tenderness. No suprapubic tenderness. Extremities: No edema, Capillary Refill Less than 3 Seconds Skin: No rashes, No breakdown Musculoskeletal: No Tenderness to Palpation of Joints or Extremities Neurological: Cranial nerves II-XII grossly intact, DTR 2+/4 and Symmetrical, Neuro grossly intact Psych/Mental Status: Normal Affect, Appropriate ABG / Lab / Microbiology Data Result Diagrams: 09/10/21 05:55 09/09/21 05:22 Discharge Plan Admission Admit Date/Time: 09/05/21 22:19 Primary Reason for Your Visit: Abdominal pain with N/V/D. Attending Provider: Ajit Way Primary Care Provider: Jovanny Gillette Consulting Providers: Susie Kessler ; Augie Ramsey Discharge Orders/Prescriptions Prescriptions: New oxycodone-acetaminophen 5-325 mg tablet 1 - 2 tab PO Q6H PRN (Reason: pain) 3 Days Qty: 10 RF: 0 Continued albuterol sulfate [ProAir HFA] 90 mcg/actuation HFA aerosol inhaler 2 puff INHALATION PRN PRN (Reason: Shortness Of Breath) RF: 0 fluticasone propionate [Flovent HFA] 220 mcg/actuation HFA aerosol inhaler 1 puff INHALATION PRN PRN (Reason: shortness of breath) RF: 0 losartan 100 mg tablet 100 mg PO QDAY RF: 0 prednisone 10 mg tablet 10 mg PO PRN PRN (Reason: joint pain ) RF: 0 atorvastatin 20 mg tablet 20 mg PO QHS Qty: 90 RF: 3 Referrals / Follow Up: Jovanny Gillette MD [Primary Care Provider] - Within 2 Weeks (APPOINTMENT 09/23/21 @ 11:30AM) Susie Kessler MD [STAFF PHYSICIAN] - Within 2 Weeks (LEFT MESSAGE FOR 'S OFFICE TO CALL PATIENT TO SET-UP APPOINTMENT.) Disposition Disposition (needs filled in before D/C Order can be placed): Home, Self Care Charges/Coding Visit Charges Inpatient E&M: 40819 Disch Hosp
[2021-09-11 12:20] LABS: Pathologist Review Reviewed
== END 2021-09-10 12:30 | disposition home or self-care (01) | DRG 418 ==
LOC: ED 22:01 → MS3 22:32
PROVIDERS: Anesthesiology; Internal Medicine Gastroenterology; Physician Assistant; Surgery; Admitting Provider Hospitalist; Emergency Provider Emergency Medicine; PCP Family Medicine; Visit Provider Internal Medicine
PROC: 0FC98ZZ Extirpation of Matter from Common Bile Duct, Via Natural or Artificial Opening Endoscopic (ICD-10-PCS; CPT 43260; principal; 2021-09-06 18:35)
PROC: 0FT44ZZ Resection of Gallbladder, Percutaneous Endoscopic Approach (ICD-10-PCS; CPT 47610; principal; 2021-09-09 11:10)
DX: K85.10 Biliary acute pancreatitis without necrosis or infection (principal); K80.43 Calculus of bile duct with acute cholecystitis with obstruction; M06.9 Rheumatoid arthritis, unspecified; F10.20 Alcohol dependence, uncomplicated; E78.5 Hyperlipidemia, unspecified; I10 Essential (primary) hypertension; G47.33 Obstructive sleep apnea (adult) (pediatric); K21.9 Gastro-esophageal reflux disease without esophagitis; J45.909 Unspecified asthma, uncomplicated; F17.220 Nicotine dependence, chewing tobacco, uncomplicated; E66.9 Obesity, unspecified; Z68.36 Body mass index [BMI] 36.0-36.9, adult; Z79.899 Other long term (current) drug therapy
CPT/HCPCS: 36415; 74328; 76000; 76705; 80048; 80053; 80061; 80076; 83690; 85025; 85610; 85730; 88304; 93005; 99284; J7030; J7120; A4216; C1769; J2405

== ENCOUNTER → 2021-12-12 | Outpatient (CLI) | payer BC, SELFPAY ==
[2021-12-12 12:19] LABS: Hematocrit 42.1 % (40-54); Hemoglobin 13.6 g/dL (13.0-16.5); Mean Corp Hgb Conc 32.3 g/dL (32-36); Mean Corpuscular Hgb 29.7 pg (27.0-32.0); Mean Corpuscular Volume 91.9 fL (80-94); Mean Platelet Vol. 9.8 fl (6.2-12.0); Platelet Count 241 K/mm3 (150-450); RBC Distribution Width CV 12.6 % (11.6-14.6); RBC Distribution Width SD 42.1 fl (35.1-43.9); Red Blood Count 4.58 M/mm3 (4.6-6.2); White Blood Count 9.2 K/mm3 (4.4-11.0)
[2021-12-12 12:46] LABS: ALB/GLOB Ratio 1.1 RATIO (0.9-2.4); AST(SGOT) 35 U/L (15-37); Alanine Aminotransfer ALT/SGPT 48 U/L (16-61); Albumin, Serum 3.9 g/dL (3.2-5.0); Alkaline Phosphatase 76 U/L (45-117); Anion Gap 9 (5-15); BUN 17 mg/dL (7-18); Calcium,Total 8.9 mg/dL (8.5-10.1); Chloride 104 mmol/L (98-107); Creatinine, Serum 0.95 mg/dL (0.70-1.30); EST Glomerular Filtration Rate 89 mL/min (>60); Est Glom Filt Rate - Afr Amer 108 mL/min (>60); Globulin 3.6 g/dL (2.2-4.2); Glucose 87 mg/dL (74-106); Potassium 3.3 mmol/L (3.5-5.1); Protein, Total 7.5 g/dL (6.4-8.2); Sodium Level 137 mmol/L (136-145)
== END | disposition home or self-care (01) ==
LOC: MTLAB 09:39
PROVIDERS: PCP Family Medicine; Referring Provider Internal Medicine Rheumatology; Visit Provider Internal Medicine Rheumatology
DX: M06.09 Rheumatoid arthritis without rheumatoid factor, multiple sites (principal); T84.89XA Other specified complication of internal orthopedic prosthetic devices, implants and grafts, initial encounter; M21.41 Flat foot [pes planus] (acquired), right foot; S46.211A Strain of muscle, fascia and tendon of other parts of biceps, right arm, initial encounter; K76.0 Fatty (change of) liver, not elsewhere classified; I10 Essential (primary) hypertension; E78.5 Hyperlipidemia, unspecified; Z79.899 Other long term (current) drug therapy
CPT/HCPCS: 36415; 80053; 85027

== ENCOUNTER 2022-01-07 11:13 | Day surgery (SDC) | payer BC, SELFPAY ==
[2022-01-07] MEDS: Lactated Ringers 1,000 ML 15 ML IV (11:30)
[2022-01-07 11:36] VITALS: BP 145/91; PULSE 81; RESP 16; TEMP 36.4; O2SAT 96; BMI 36.6
--- NOTE | 2022-01-07 11:47 | HP.PCM_ITS ---
History and Physical Date of Admission: 01/07/22 ?LISBET MAYER, is a 51 M with a significant history of asthma; rheumatoid arthritis on prednisone; gallstone and alcoholism obstructive sleep apnea who presents to the emergency department with excruciating persistent nonradiating epigastric pain that started on the same day of presentation and about 2 hours after eating beef stew.? He had abdominal pain 3 days before presentation and that lasted about 2 hours. Two days before presentation he had an pain about the lasted for about 1 hour. Associated with symptoms is nausea and some mild vomiting.? He denies any ameliorating factors to the pain.? Deep breath and moving worsens his pain.? His pain is a constant with episodic increase in intensity.? He describes his pain as sharp. He eventually underwent imaging that showed obstructive jaundice with gall stone induced pancreatitis that was seen in imaging and blood work. He underwent ERCP with stone removal and stent placement and eventually had a cholecystectomy. He comes in today for stent removal or exchange. PFS Medical History? Alcohol abuse Anxiety Asthma Chest pain Former smoker GERD (gastroesophageal reflux disease) Hyperlipidemia Hypertension Obesity Obstructive sleep apnea Palpitation Rheumatoid arthritis Sleep apnea Home Medications albuterol sulfate 90 mcg/actuation aerosol inhaler 2 puff INHALATION PRN PRN 07/23/17 [History Last Taken Unknown] fluticasone propionate 220 mcg/actuation HFA aerosol inhaler 1 puff INHALATION PRN PRN 07/23/17 [History Last Taken Unknown] losartan 100 mg tablet 100 mg PO QDAY 07/23/17 [History Last Taken 09/05/21] atorvastatin 20 mg tablet 20 mg PO QHS #90 tab 08/29/20 [Rx Last Taken 09/05/21] prednisone 10 mg PO PRN PRN 11/30/20 [History Last Taken Unknown] Allergy/AdvReac Type Severity Reaction Status Date / Time No Known Allergies Allergy ? ? Unverified 09/05/21 20:37 Family History? Father CAD (coronary artery disease) ?? ? PCI-Stent late 50'sMother Colon cancer Surgical History? H/O repair of right rotator cuff History of repair of anterior cruciate ligament of left knee Social History? Smoking Status:? Former smoker Smokeless tobacco user:? snuff alcohol intake:? current alcohol intake frequency: 3 or more drinks per day Alcohol type: beer ROS Gastrointestinal Gastrointestinal: Reports abdominal pain Physical Exam Const alert General Appearance: cooperative Orientation / Consciousness: oriented to person HEENT hearing grossly normal bilaterally Head and Scalp: normal to inspection Face and Sinus: face symmetric Nose: external nose normal Mouth: oral and palatal mucosa normal Eyes conjunctivae normal General Eye: normal appearance of both eyes Neck full ROM General: normal visual inspection Lymph Lymphatic: no lymphadenopathy noted Chest inspection of chest normal and palpation of chest normal Chest: symmetrical chest wall rise Resp normal respiratory effort Effort and Inspection: able to speak in complete sentences Cardio regular rate GI non-distended Percussion: normal to percussion Rectal Exam: deferred Neuro Speech: speech normal Gait (Neuro): normal gait Lab / Micro Data Result Diagrams: 09/06/21 05:14? 09/06/21 05:14? Labs: Laboratory Results - last 24 hr 09/05/21 21:00: WBC 16.4 H, RBC 4.95, Hgb 15.0, Hct 45.8, MCV 92.5, MCH 30.3, MCHC 32.8, RDW Std Deviation 41.2, RDW Coeff of Travis 12.1, Plt Count 269, MPV 9.4, Immature Gran % (Auto) 0.600,?Neut % (Auto) 87.5 H,?Lymph % (Auto) 5.1 L, [place] % (Auto) 6.5, Eos % (Auto) 0.1, Baso % (Auto) 0.2,?Absolute Neuts (auto) 14.3 H, Absolute Lymphs (auto) 0.84, Nucleated RBC % 0 09/05/21 21:00:?Sodium 139, Potassium 3.9, Chloride 107, Carbon Dioxide 25.0, Anion Gap 7, BUN 16, Creatinine 1.15, Estim Creat Clear Calc 68.58, Est GFR (MDRD) Af Amer 86, Est GFR (MDRD) Non-Af 71, BUN/Creatinine Ratio 13.9,?Glucose 202 H, Calcium 9.7,?Total Bilirubin 1.50 H,?Direct Bilirubin 1.21 H,?AST 410 H,? ALT 405 H,?Alkaline Phosphatase 236 H, Total Protein 8.2, Albumin 3.9,?Globulin 4.3 H,?Lipase 71358 H 09/06/21 05:14: WBC 11.5 H,?RBC 4.29 L, Hgb 13.0, Hct 40.0, MCV 93.2, MCH 30.3, MCHC 32.5, RDW Std Deviation 42.6, RDW Coeff of [place] 12.3, Plt Count 232, MPV 9.6, Immature Gran % (Auto) 0.400,?Neut % (Auto) 82.5 H,?Lymph % (Auto) 8.0 L, [place] % (Auto) 8.6, Eos % (Auto) 0.2, Baso % (Auto) 0.3,?Absolute Neuts (auto) 9.5 H, Absolute Lymphs (auto) 0.92, Nucleated RBC % 0 09/06/21 05:14:?Sodium 140, Potassium 3.8,?Chloride 111 H, Carbon Dioxide 24.0, Anion Gap 5, BUN 10, Creatinine 0.78, Estim Creat Clear Calc 101.11, Est GFR (MDRD) Af Amer 135, Est GFR (MDRD) Non-Af 111, BUN/Creatinine Ratio 12.8,? Glucose 122 H, Calcium 8.7,?Total Bilirubin 1.70 H,?AST 419 H,?ALT 426 H,? Alkaline Phosphatase 201 H, Total Protein 6.6,?Albumin 3.1 L, Globulin 3.5, Albumin/Globulin Ratio 0.9, Triglycerides 54, Cholesterol 120, LDL Cholesterol 58, VLDL Cholesterol 11, HDL Cholesterol 51 09/06/21 05:14: Lipase 28961 H Radiology Impression Gallbladder Ultrasound? 09/05/21 20:46 IMPRESSION: ? Cholelithiasis.? No convincing evidence of acute cholecystitis.? Borderline common duct. Assessment and plan he will undergo ERCP with stent removal. He was explained alternatives, risk, benefits including outstanding bleeding, infection, sepsis, perforation, need for emergent surgery . Have an ASA of 1.
[2022-01-07 12:42] VITALS: PULSE 90; RESP 18
[2022-01-07] MEDS: Ipratropium/Albuterol Sulfate 3 ML AMPUL.NEB INHALATION (12:42)
--- NOTE | 2022-01-07 13:13 | RAD_ITS ---
STUDY: ERCP. REASON FOR EXAM: Male, 51 years old. PAIN FLUOROSCOPY TIME (if supplied): ( 12.7 seconds ) minutes/seconds. 8 images were submitted. TECHNIQUE: An ERCP was performed by the basket patcher. Contrast was injected. Imaging was provided. COMPARISON: None. RAD/ERCP Biliary Only IMPRESSION: Fluoroscopic imaging for ERCP.. Electronically Signed: Alberto Zhong MD at 14:43 EDT ,
--- NOTE | 2022-01-07 13:39 | OP.CCLET_ITS ---
01/07/2022 Jovanny Gillette [address] [place] [address] Re : ERCP procedure for Timbo Graff Dear Dr. Gillette This procedure was performed on Friday, January 07, 2022. My impressions and recommendations are as follows: Impressions : - The upper third of the main bile duct and middle third of the main bile duct were dilated, with a stone causing an obstruction. - Choledocholithiasis was found. Complete removal was accomplished by biliary sphincterotomy and balloon extraction. - A biliary sphincterotomy was performed. - The biliary tree was swept. - Common bile duct was successfully dilated. - One stent was removed from the biliary tree. Recommendations : My findings are described in the full procedure note, which is enclosed. If I can be of further assistance, please feel free to contact me at . Sincerely, Augie Ramsey, 01/07/2022 1:38:41 PM This report has been signed electronically.
--- NOTE | 2022-01-07 13:39 | OP.ERCP_ITS ---
Patient Name: Timbo Graff Procedure Date: 01/07/2022 12:33 PM Date of : 1970 Age: 51 Procedure: ERCP Indications: Biliary stent removal Providers: Augie Ramsey DO Medicines: Monitored Anesthesia Care Patient Profile: This is a 51 year old male. Refer to note in patient chart for documentation of history and physical. Patient has symptoms of acute right upper quadrant abdominal pain. He is status post ERCP for biliary evaluation, ERCP for stent and ERCP for stone removal within the past three months. He is status post laparoscopic cholecystectomy within the past three months. Complications: No immediate complications. Procedure: Pre-Anesthesia Assessment: - Prior to the procedure, a History and Physical was performed, and patient medications and allergies were reviewed. The risks and benefits of the procedure and the sedation options and risks were discussed with the patient. All questions were answered and informed consent was obtained. Patient identification and proposed procedure were verified by the physician. Mental Status Examination: alert and oriented. Airway Examination: normal oropharyngeal airway and neck mobility. Respiratory Examination: clear to auscultation. CV Examination: normal. Prophylactic Antibiotics: The patient does not require prophylactic antibiotics. Prior Anticoagulants: The patient has taken no previous anticoagulant or antiplatelet agents. ASA Grade Assessment: II - A patient with mild systemic disease. After reviewing the risks and benefits, the patient was deemed in satisfactory condition to undergo the procedure. The anesthesia plan was to use moderate sedation / analgesia (conscious sedation). Immediately prior to administration of medications, the patient was re-assessed for adequacy to receive sedatives. The heart rate, respiratory rate, oxygen saturations, blood pressure, adequacy of pulmonary ventilation, and response to care were monitored throughout the procedure. The physical status of the patient was re-assessed after the procedure. After obtaining informed consent, the scope was passed under direct vision. Throughout the procedure, the patient's blood pressure, pulse, and oxygen saturations were monitored continuously. The Duodenoscope was introduced through the mouth, and advanced to the duodenum and used to inject contrast into the bile duct. The ERCP was accomplished without difficulty. The patient tolerated the procedure well. Scope In: 1:16:11 PM Scope Out: 1:26:12 PM Total Procedure Duration Time 0 hours 10 minutes 1 second Findings: The sales estimator film was normal. The esophagus was successfully intubated under direct vision. The scope was advanced to a normal major papilla in the descending duodenum without detailed examination of the pharynx, larynx and associated structures, and upper GI tract. The upper GI tract was grossly normal. The bile duct was deeply cannulated with the short-nosed traction sphincterotome. Contrast was injected. I personally interpreted the bile duct images. There was brisk flow of contrast through the ducts. Opacification of the main bile duct was successful. The maximum diameter of the ducts was 8 mm. The lower third of the main bile duct contained one stone, which was 6 mm in diameter. The middle third of the main bile duct and upper third of the main bile duct were locally dilated, with a stone causing an obstruction. The largest diameter was 5 mm. A straight Roadrunner wire was passed into the biliary tree. A 5 mm biliary sphincterotomy was made with a traction (standard) sphincterotome using ERBE electrocautery. The sphincterotomy oozed blood. The biliary tree was swept with a 15 mm balloon starting at the bifurcation. Sludge was swept from the duct. All stones were removed. Dilation of the common bile duct with a 6-7-8 mm balloon dilator was successful. One stent was removed from the biliary tree using a rat-toothed forceps. The stent was found to be occluded via the water column test. Impression: - The upper third of the main bile duct and middle third of the main bile duct were dilated, with a stone causing an obstruction. - Choledocholithiasis was found. Complete removal was accomplished by biliary sphincterotomy and balloon extraction. - A biliary sphincterotomy was performed. - The biliary tree was swept. - Common bile duct was successfully dilated. - One stent was removed from the biliary tree. Procedure Code(s): --- Professional --- 20505, 59, Endoscopic retrograde cholangiopancreatography (ERCP); with trans-endoscopic balloon dilation of biliary/pancreatic duct(s) or of ampulla (sphincteroplasty), including sphincterotomy, when performed, each duct 12213, 51, Endoscopic retrograde cholangiopancreatography (ERCP); with removal of foreign body(s) or stent(s) from biliary/pancreatic duct(s) 42470, Endoscopic retrograde cholangiopancreatography (ERCP); with removal of calculi/debris from biliary/pancreatic duct(s) 47671, 26, Endoscopic catheterization of the biliary ductal system, radiological supervision and interpretation CPT copyright 2017 [employer]. All rights reserved. The codes documented in this report are preliminary and upon senior category manager review may be revised to meet current compliance requirements. Augie Ramsey DO 01/07/2022 1:38:41 PM This report has been signed electronically. Number of Addenda: 0 Note Initiated On: 01/07/2022 12:33 PM
[2022-01-07 13:41] VITALS: BP 135/95; BP 145/91; PULSE 95; RESP 16; TEMP 37; O2SAT 98
[2022-01-07 14:00] VITALS: BP 135/81; BP 145/91; PULSE 76; RESP 16; O2SAT 97
[2022-01-07 14:13] VITALS: BP 141/85; BP 145/91; PULSE 79; RESP 16; TEMP 36.6; O2SAT 97
[2022-01-07 14:40] VITALS: BP 145/91
== END 2022-01-07 14:41 | disposition home or self-care (01) ==
LOC: EN 11:16 → AC 11:17
PROVIDERS: PCP Family Medicine; Referring Provider Family Medicine; Visit Provider Internal Medicine Gastroenterology
PROC: (CPT 43260; principal; 2022-01-07 12:10)
DX: K80.51 Calculus of bile duct without cholangitis or cholecystitis with obstruction (principal); M06.9 Rheumatoid arthritis, unspecified; J45.909 Unspecified asthma, uncomplicated; I10 Essential (primary) hypertension; G47.33 Obstructive sleep apnea (adult) (pediatric); E78.00 Pure hypercholesterolemia, unspecified; Z87.891 Personal history of nicotine dependence; Z79.899 Other long term (current) drug therapy
CPT/HCPCS: 43277; 43275; 43264; 74328; 76000; 94640; J7120; J2405

== ENCOUNTER → 2022-02-05 | Outpatient (CLI) | payer BC, SELFPAY ==
[2022-02-05 10:12] LABS: Absolute Lymphocyte Count 1.37 X10^3/uL (0.83-4.51); Absolute Neutrophil Count 4.9 X10^3/uL (2.0-7.7); Basophil# 0.04 X10^3/uL; Basophil% 0.6 % (0-1); Eosinophil# 0.07 X10^3/uL; Hematocrit 44.1 % (40-54); Hemoglobin 14.8 g/dL (13.0-16.5); Lymphocyte # 1.37 X10^3/ul (0.83-4.51); Lymphocyte % 20.1 % (19-41); Mean Corp Hgb Conc 33.6 g/dL (32-36); Mean Corpuscular Hgb 30.6 pg (27.0-32.0); Mean Corpuscular Volume 91.3 fL (80-94); Mean Platelet Vol. 9.7 fl (6.2-12.0); Monocyte# 0.42 X10^3/uL; Monocyte% 6.2 % (0-10); NRBC Flagged by Analyzer 0 % (0-5); Neutrophil # 4.88 X10^3/uL (2.7-7.7); Neutrophil % 71.7 % (47-70); Platelet Count 212 K/mm3 (150-450); RBC Distribution Width CV 11.8 % (11.6-14.6); RBC Distribution Width SD 39.4 fl (35.1-43.9); Red Blood Count 4.83 M/mm3 (4.6-6.2); White Blood Count 6.8 K/mm3 (4.4-11.0)
[2022-02-05 10:37] LABS: Hemoglobin A1c 5.6 % (3.8-5.6)
[2022-02-05 10:40] LABS: Anion Gap 7 (5-15); BUN 18 mg/dL (7-18); BUN/Creat Ratio 20.9 RATIO (10-20); Calcium,Total 9.5 mg/dL (8.5-10.1); Chloride 105 mmol/L (98-107); Cholesterol 182 mg/dL (200); Creatinine, Serum 0.86 mg/dL (0.70-1.30); EST Glomerular Filtration Rate 99 mL/min (>60); Est Glom Filt Rate - Afr Amer 120 mL/min (>60); Glucose 115 mg/dL (74-106); High Density Lipoprotein 57 mg/dL; Magnesium 2.1 mg/dL (1.6-2.6); Potassium 4.1 mmol/L (3.5-5.1); Sodium Level 138 mmol/L (136-145); Triglycerides 128 mg/dL; Very Low Density Lipoprotein 26 mg/dL (5-40)
[2022-02-05 10:48] LABS: Microalbumin,Random Urine 12.8 mg/L (NO RANGE EST.); Microalbumin:Creatinine Ratio 4.8 mg/g CRE (<30 mg/g CRE)
== END | disposition home or self-care (01) ==
LOC: MTLAB 09:17
PROVIDERS: PCP Family Medicine; Referring Provider Family Medicine; Visit Provider Family Medicine
DX: Z00.00 Encounter for general adult medical examination without abnormal findings (principal); M06.00 Rheumatoid arthritis without rheumatoid factor, unspecified site; R73.09 Other abnormal glucose; I10 Essential (primary) hypertension
CPT/HCPCS: 36415; 80048; 80061; 82043; 82570; 83036; 83735; 85025

== ENCOUNTER → 2022-05-30 | Outpatient (CLI) | payer BC, SELFPAY ==
[2022-05-30 12:03] LABS: Hematocrit 44.6 % (40-54); Hemoglobin 14.6 g/dL (13.0-16.5); Mean Corp Hgb Conc 32.7 g/dL (32-36); Mean Corpuscular Hgb 30.1 pg (27.0-32.0); Mean Platelet Vol. 9.6 fl (6.2-12.0); Platelet Count 229 K/mm3 (150-450); RBC Distribution Width CV 11.9 % (11.6-14.6); RBC Distribution Width SD 40.2 fl (35.1-43.9); Red Blood Count 4.85 M/mm3 (4.6-6.2); White Blood Count 6.3 K/mm3 (4.4-11.0)
[2022-05-30 12:55] LABS: AST(SGOT) 23 U/L (15-37); Alanine Aminotransfer ALT/SGPT 41 U/L (16-61); Albumin, Serum 3.5 g/dL (3.2-5.0); Alkaline Phosphatase 76 U/L (45-117); Anion Gap 6 (5-15); BUN 12 mg/dL (7-18); BUN/Creat Ratio 13.9 RATIO (10-20); CRP < 2.90 mg/L (0.0-3.0); Calcium,Total 8.9 mg/dL (8.5-10.1); Chloride 108 mmol/L (98-107); Creatinine, Serum 0.86 mg/dL (0.70-1.30); EST Glomerular Filtration Rate 99 mL/min (>60); Est Glom Filt Rate - Afr Amer 120 mL/min (>60); Globulin 3.4 g/dL (2.2-4.2); Glucose 108 mg/dL (74-106); Potassium 4.6 mmol/L (3.5-5.1); Protein, Total 6.9 g/dL (6.4-8.2); Sodium Level 143 mmol/L (136-145); Thyroid Stim Hormone (TSH) 1.21 uIU/mL (0.358-3.74)
[2022-06-02 16:08] LABS: ANTINUCLEAR ANTIBODIES DIRECT Positive (Negative); Anti-Centromere B Ab <0.2 AI (0.0-0.9); Anti-Chromatin <0.2 AI (0.0-0.9); Anti-Jo <0.2 AI (0.0-0.9); Anti-Scleroderma-70 AB <0.2 AI (0.0-0.9); RNP Ab 0.6 AI (0.0-0.9); SJOGREN'S Anti-SS-A test > 8.0 AI (0.0-0.9); SJOGREN'S Anti-SS-B test < 0.2 AI (0.0-0.9); Smith Ab <0.2 AI (0.0-0.9)
[2022-06-02 18:39] LABS: Anti-dsDNA Ab 8 IU/mL (0-9)
== END | disposition home or self-care (01) ==
LOC: MFPLAB 11:02
PROVIDERS: PCP Family Medicine; Referring Provider Family Medicine; Visit Provider Family Medicine
DX: R00.2 Palpitations (principal)
CPT/HCPCS: 36415; 80053; 83735; 84443; 85027; 86038; 86140; 86225; 86235

== ENCOUNTER → 2022-06-13 | Outpatient (CLI) | payer BC, SELFPAY ==
[2022-06-13 09:57] LABS: Absolute Lymphocyte Count 3.05 X10^3/uL (0.83-4.51); Absolute Neutrophil Count 4.4 X10^3/uL (2.0-7.7); Basophil# 0.05 X10^3/uL; Basophil% 0.6 % (0-1); Eosinophil# 0.38 X10^3/uL; Eosinophils% 4.4 % (0-5); Hematocrit 43.8 % (40-54); Hemoglobin 14.7 g/dL (13.0-16.5); Lymphocyte # 3.05 X10^3/ul (0.83-4.51); Lymphocyte % 35.3 % (19-41); Mean Corp Hgb Conc 33.6 g/dL (32-36); Mean Corpuscular Hgb 30.5 pg (27.0-32.0); Mean Corpuscular Volume 90.9 fL (80-94); Mean Platelet Vol. 9.3 fl (6.2-12.0); Monocyte# 0.76 X10^3/uL; Monocyte% 8.8 % (0-10); NRBC Flagged by Analyzer 0 % (0-5); Neutrophil # 4.36 X10^3/uL (2.7-7.7); Neutrophil % 50.4 % (47-70); Platelet Count 248 K/mm3 (150-450); RBC Distribution Width CV 11.8 % (11.6-14.6); RBC Distribution Width SD 39.2 fl (35.1-43.9); Red Blood Count 4.82 M/mm3 (4.6-6.2); White Blood Count 8.6 K/mm3 (4.4-11.0)
[2022-06-13 10:38] LABS: AST(SGOT) 31 U/L (15-37); Alanine Aminotransfer ALT/SGPT 43 U/L (16-61); Alkaline Phosphatase 71 U/L (45-117); Anion Gap 11 (5-15); BUN 23 mg/dL (7-18); BUN/Creat Ratio 24.9 RATIO (10-20); Chloride 105 mmol/L (98-107); Creatinine, Serum 0.92 mg/dL (0.70-1.30); EST Glomerular Filtration Rate 91 mL/min (>60); Est Glom Filt Rate - Afr Amer 110 mL/min (>60); Globulin 3.9 g/dL (2.2-4.2); Glucose 97 mg/dL (74-106); Potassium 4.3 mmol/L (3.5-5.1); Protein, Total 7.9 g/dL (6.4-8.2); Sodium Level 141 mmol/L (136-145)
== END | disposition home or self-care (01) ==
LOC: MTLAB 09:11
PROVIDERS: PCP Family Medicine; Referring Provider Internal Medicine Rheumatology; Visit Provider Internal Medicine Rheumatology
DX: M06.09 Rheumatoid arthritis without rheumatoid factor, multiple sites (principal); T84.89XA Other specified complication of internal orthopedic prosthetic devices, implants and grafts, initial encounter; M21.41 Flat foot [pes planus] (acquired), right foot; K76.0 Fatty (change of) liver, not elsewhere classified; I10 Essential (primary) hypertension; E78.5 Hyperlipidemia, unspecified; S46.211A Strain of muscle, fascia and tendon of other parts of biceps, right arm, initial encounter; Z79.899 Other long term (current) drug therapy
CPT/HCPCS: 36415; 80053; 85025

== ENCOUNTER → 2022-12-09 | Outpatient (CLI) | payer BC, SELFPAY ==
[2022-12-09 15:28] LABS: Absolute Lymphocyte Count 2.52 X10^3/uL (0.83-4.51); Absolute Neutrophil Count 7.3 X10^3/uL (2.0-7.7); Basophil# 0.08 X10^3/uL; Basophil% 0.7 % (0-1); Eosinophil# 0.23 X10^3/uL; Hematocrit 44.2 % (40-54); Hemoglobin 14.6 g/dL (13.0-16.5); Lymphocyte # 2.52 X10^3/ul (0.83-4.51); Lymphocyte % 22.2 % (19-41); Mean Corpuscular Hgb 30.5 pg (27.0-32.0); Mean Corpuscular Volume 92.3 fL (80-94); Mean Platelet Vol. 9.5 fl (6.2-12.0); Monocyte# 1.22 X10^3/uL; Monocyte% 10.7 % (0-10); NRBC Flagged by Analyzer 0 % (0-5); Neutrophil # 7.28 X10^3/uL (2.7-7.7); Neutrophil % 64.1 % (47-70); Platelet Count 236 K/mm3 (150-450); RBC Distribution Width CV 12.3 % (11.6-14.6); RBC Distribution Width SD 42.2 fl (35.1-43.9); Red Blood Count 4.79 M/mm3 (4.6-6.2); White Blood Count 11.4 K/mm3 (4.4-11.0)
[2022-12-09 15:43] LABS: ALB/GLOB Ratio 0.9 RATIO (0.9-2.4); AST(SGOT) 40 U/L (15-37); Alanine Aminotransfer ALT/SGPT 63 U/L (16-61); Albumin, Serum 3.5 g/dL (3.2-5.0); Alkaline Phosphatase 71 U/L (45-117); Anion Gap 6 (5-15); BUN 17 mg/dL (7-18); BUN/Creat Ratio 17.4 RATIO (10-20); Calcium,Total 9.4 mg/dL (8.5-10.1); Chloride 107 mmol/L (98-107); Creatinine, Serum 0.98 mg/dL (0.70-1.30); EST Glomerular Filtration Rate 85 mL/min (>60); Est Glom Filt Rate - Afr Amer 103 mL/min (>60); Globulin 3.9 g/dL (2.2-4.2); Glucose 102 mg/dL (74-106); Potassium 4.2 mmol/L (3.5-5.1); Protein, Total 7.4 g/dL (6.4-8.2); Sodium Level 139 mmol/L (136-145)
== END | disposition home or self-care (01) ==
PROVIDERS: PCP Family Medicine; Referring Provider Internal Medicine Rheumatology; Visit Provider Internal Medicine Rheumatology
DX: M06.09 Rheumatoid arthritis without rheumatoid factor, multiple sites (principal); Z79.899 Other long term (current) drug therapy
CPT/HCPCS: 36415; 80053; 85025

== ENCOUNTER 2023-02-13 10:01 | Outpatient (CLI) | payer BC, SELFPAY ==
[2023-02-13 12:18] LABS: Absolute Lymphocyte Count 3.04 X10^3/uL (0.83-4.51); Absolute Neutrophil Count 4.7 X10^3/uL (2.0-7.7); Basophil# 0.04 X10^3/uL; Basophil% 0.4 % (0-1); Eosinophil# 0.23 X10^3/uL; Eosinophils% 2.5 % (0-5); Hemoglobin 16.3 g/dL (13.0-16.5); Lymphocyte # 3.04 X10^3/ul (0.83-4.51); Mean Corp Hgb Conc 32.6 g/dL (32-36); Mean Corpuscular Hgb 30.6 pg (27.0-32.0); Mean Corpuscular Volume 93.8 fL (80-94); Mean Platelet Vol. 9.6 fl (6.2-12.0); Monocyte# 1.15 X10^3/uL; Monocyte% 12.5 % (0-10); NRBC Flagged by Analyzer 0 % (0-5); Neutrophil # 4.72 X10^3/uL (2.7-7.7); Neutrophil % 51.4 % (47-70); Platelet Count 247 K/mm3 (150-450); RBC Distribution Width CV 11.9 % (11.6-14.6); RBC Distribution Width SD 41.1 fl (35.1-43.9); Red Blood Count 5.33 M/mm3 (4.6-6.2); White Blood Count 9.2 K/mm3 (4.4-11.0)
[2023-02-13 12:49] LABS: ALB/GLOB Ratio 0.9 RATIO (0.9-2.4); AST(SGOT) 23 U/L (15-37); Alanine Aminotransfer ALT/SGPT 46 U/L (16-61); Albumin, Serum 3.9 g/dL (3.2-5.0); Alkaline Phosphatase 78 U/L (45-117); Anion Gap 5 (5-15); BUN 15 mg/dL (7-18); BUN/Creat Ratio 14.9 RATIO (10-20); Calcium,Total 9.4 mg/dL (8.5-10.1); Chloride 105 mmol/L (98-107); Creatinine, Serum 1.01 mg/dL (0.70-1.30); EST Glomerular Filtration Rate 82 mL/min (>60); Est Glom Filt Rate - Afr Amer 100 mL/min (>60); Globulin 4.5 g/dL (2.2-4.2); Glucose 111 mg/dL (74-106); Magnesium 2.6 mg/dL (1.6-2.6); Potassium 4.2 mmol/L (3.5-5.1); Protein, Total 8.4 g/dL (6.4-8.2); Sodium Level 135 mmol/L (136-145)
== END 2023-02-13 23:59 | disposition home or self-care (01) ==
LOC: MFPLAB 10:02
PROVIDERS: PCP Family Medicine; Visit Provider Family Medicine
DX: R42 Dizziness and giddiness (principal)
CPT/HCPCS: 36415; 80053; 83735; 85025

== ENCOUNTER → 2024-02-16 | Outpatient (CLI) | payer BC, SELFPAY ==
[2024-02-16 15:30] LABS: Absolute Lymphocyte Count 1.83 X10^3/uL (0.83-4.51); Absolute Neutrophil Count 6.7 X10^3/uL (2.0-7.7); Basophil# 0.04 X10^3/uL; Basophil% 0.4 % (0-1); Eosinophil# 0.17 X10^3/uL; Eosinophils% 1.7 % (0-5); Hematocrit 43.9 % (40-54); Hemoglobin 14.6 g/dL (13.0-16.5); Lymphocyte # 1.83 X10^3/ul (0.83-4.51); Lymphocyte % 18.3 % (19-41); Mean Corp Hgb Conc 33.3 g/dL (32-36); Mean Corpuscular Hgb 30.6 pg (27.0-32.0); Mean Platelet Vol. 9.6 fl (6.2-12.0); Monocyte# 1.22 X10^3/uL; Monocyte% 12.2 % (0-10); NRBC Flagged by Analyzer 0 % (0-5); Neutrophil % 67.1 % (47-70); Platelet Count 266 K/mm3 (150-450); RBC Distribution Width SD 40.8 fl (35.1-43.9); Red Blood Count 4.77 M/mm3 (4.6-6.2)
[2024-02-16 16:09] LABS: ALB/GLOB Ratio 0.9 RATIO (0.9-2.4); AST(SGOT) 19 U/L (15-37); Alanine Aminotransfer ALT/SGPT 27 U/L (16-61); Albumin, Serum 3.6 g/dL (3.2-5.0); Alkaline Phosphatase 111 U/L (45-117); Anion Gap 9 (5-15); BUN 15 mg/dL (7-18); BUN/Creat Ratio 17.7 RATIO (10-20); Calcium,Total 9.4 mg/dL (8.5-10.1); Chloride 106 mmol/L (98-107); Creatinine, Serum 0.85 mg/dL (0.70-1.30); EST Glomerular Filtration Rate 100 mL/min (>60); Est Glom Filt Rate - Afr Amer 122 mL/min (>60); Globulin 4.2 g/dL (2.2-4.2); Glucose 117 mg/dL (74-106); Potassium 3.9 mmol/L (3.5-5.1); Protein, Total 7.8 g/dL (6.4-8.2); Sodium Level 138 mmol/L (136-145)
== END | disposition home or self-care (01) ==
LOC: MTLAB 12:57
PROVIDERS: PCP Family Medicine; Referring Provider Family Medicine; Visit Provider Family Medicine
DX: R00.2 Palpitations (principal)
CPT/HCPCS: 36415; 80053; 83735; 84443; 85025

== ENCOUNTER → 2024-07-15 | Outpatient (CLI) | payer BC, SELFPAY ==
[2024-07-15 10:59] LABS: Absolute Lymphocyte Count 2.96 X10^3/uL (0.83-4.51); Absolute Neutrophil Count 6.2 X10^3/uL (2.0-7.7); Basophil# 0.07 X10^3/uL; Basophil% 0.6 % (0-1); Eosinophil# 0.49 X10^3/uL; Eosinophils% 4.5 % (0-5); Hematocrit 44.4 % (40-54); Hemoglobin 14.9 g/dL (13.0-16.5); Lymphocyte # 2.96 X10^3/ul (0.83-4.51); Lymphocyte % 27.4 % (19-41); Mean Corp Hgb Conc 33.6 g/dL (32-36); Mean Corpuscular Hgb 30.7 pg (27.0-32.0); Mean Corpuscular Volume 91.4 fL (80-94); Mean Platelet Vol. 9.7 fl (6.2-12.0); Monocyte# 1.03 X10^3/uL; Monocyte% 9.5 % (0-10); NRBC Flagged by Analyzer 0 % (0-5); Neutrophil # 6.21 X10^3/uL (2.7-7.7); Neutrophil % 57.5 % (47-70); Platelet Count 267 K/mm3 (150-450); RBC Distribution Width SD 40.1 fl (35.1-43.9); Red Blood Count 4.86 M/mm3 (4.6-6.2); White Blood Count 10.8 K/mm3 (4.4-11.0)
[2024-07-15 11:24] LABS: ALB/GLOB Ratio 1.2 RATIO (0.9-2.4); AST(SGOT) 32 U/L (<=37); Alanine Aminotransfer ALT/SGPT 42 U/L (<=46); Albumin, Serum 4.2 g/dL (3.5-5.0); Alkaline Phosphatase 38 U/L (40-129); Anion Gap 14 (5-15); BUN 12 mg/dL (4-19); BUN/Creat Ratio 15.6 RATIO (10-20); Calcium,Total 9.3 mg/dL (7.6-11.0); Carbon Dioxide 21.2 mmol/L (21.0-32.0); Chloride 101 mmol/L (98-108); Creatinine, Serum 0.79 mg/dL (0.70-1.20); EST Glomerular Filtration Rate 106 (>60); Globulin 3.5 g/dL (2.2-4.2); Glucose 88 mg/dL (70-99); Protein, Total 7.7 g/dL (5.9-8.4); Sodium Level 137 mmol/L (133-145); Total Bilirubin 0.72 mg/dL (0.00-1.30)
[2024-07-15 11:32] LABS: Erythrocyte Sedimentation Rate 22 mm/hr (0-20)
[2024-07-15 11:38] LABS: CRP < 3.00 mg/L (0.0-3.0); Rheumatoid Factor < 10.0 IU/mL (<15); Uric Acid 5.1 mg/dL (3.5-7.2)
== END | disposition home or self-care (01) ==
LOC: MTLAB 08:34
PROVIDERS: PCP Family Medicine; Referring Provider Family Medicine; Visit Provider Family Medicine
DX: M06.00 Rheumatoid arthritis without rheumatoid factor, unspecified site (principal)
CPT/HCPCS: 36415; 80053; 84550; 85025; 85652; 86140; 86431

== ENCOUNTER → 2024-08-16 | Outpatient (CLI) | payer BC, SELFPAY ==
[2024-08-19 04:07] LABS: QNTFERON TB Mitogen Value > 10.00 IU/mL (.); QNTFERON TB Nil Value 0.04 IU/mL (.); QNTFERON TB1+ Ag Value 0.03 IU/mL (.); QNTFERON TB2+ Ag Value 0.03 IU/mL (.); QNTIFERON TB Positive Criteria Negative (Negative)
== END | disposition home or self-care (01) ==
LOC: MTLAB 09:37
PROVIDERS: PCP Family Medicine; Referring Provider Internal Medicine Rheumatology; Visit Provider Internal Medicine Rheumatology
DX: M06.09 Rheumatoid arthritis without rheumatoid factor, multiple sites (principal); Z79.899 Other long term (current) drug therapy
CPT/HCPCS: 36415; 86480

== ENCOUNTER → 2024-10-26 | Outpatient (CLI) | payer BC, SELFPAY ==
[2024-10-26 12:39] LABS: Absolute Lymphocyte Count 2.11 X10^3/uL (0.83-4.51); Absolute Neutrophil Count 6.2 X10^3/uL (2.0-7.7); Basophil# 0.06 X10^3/uL; Basophil% 0.6 % (0-1); Eosinophil# 0.32 X10^3/uL; Eosinophils% 3.3 % (0-5); Hematocrit 40.3 % (40-54); Hemoglobin 13.9 g/dL (13.0-16.5); Lymphocyte # 2.11 X10^3/ul (0.83-4.51); Lymphocyte % 21.8 % (19-41); Mean Corp Hgb Conc 34.5 g/dL (32-36); Mean Corpuscular Hgb 31.4 pg (27.0-32.0); Mean Corpuscular Volume 91.2 fL (80-94); Monocyte# 0.97 X10^3/uL; NRBC Flagged by Analyzer 0 % (0-5); Neutrophil # 6.21 X10^3/uL (2.7-7.7); Neutrophil % 64.1 % (47-70); Platelet Count 248 K/mm3 (150-450); RBC Distribution Width CV 11.8 % (11.6-14.6); RBC Distribution Width SD 39.8 fl (35.1-43.9); Red Blood Count 4.42 M/mm3 (4.6-6.2); White Blood Count 9.7 K/mm3 (4.4-11.0)
[2024-10-26 12:59] LABS: ALB/GLOB Ratio 1.4 RATIO (0.9-2.4); AST(SGOT) 37 U/L (<=37); Alanine Aminotransfer ALT/SGPT 32 U/L (<=46); Albumin, Serum 4.5 g/dL (3.5-5.0); Alkaline Phosphatase 95 U/L (40-129); Anion Gap 16 (5-15); BUN 12 mg/dL (4-19); BUN/Creat Ratio 11.3 RATIO (10-20); Calcium,Total 9.5 mg/dL (7.6-11.0); Carbon Dioxide 20.9 mmol/L (21.0-32.0); Chloride 101 mmol/L (98-108); Creatinine, Serum 1.06 mg/dL (0.70-1.20); EST Glomerular Filtration Rate 83 (>60); Globulin 3.2 g/dL (2.2-4.2); Glucose 115 mg/dL (70-99); Potassium 3.6 mmol/L (3.3-5.1); Protein, Total 7.6 g/dL (5.9-8.4); Sodium Level 138 mmol/L (133-145); Total Bilirubin 0.77 mg/dL (0.00-1.30)
== END | disposition home or self-care (01) ==
LOC: MTLAB 09:36
PROVIDERS: PCP Family Medicine; Referring Provider Internal Medicine Rheumatology; Visit Provider Internal Medicine Rheumatology
DX: M06.09 Rheumatoid arthritis without rheumatoid factor, multiple sites (principal); Z79.899 Other long term (current) drug therapy
CPT/HCPCS: 36415; 80053; 85025

== ENCOUNTER → 2025-01-19 | Outpatient (CLI) | payer BC, SELFPAY ==
[2025-01-19 15:10] LABS: Hematocrit 40.0 % (40-54); Hemoglobin 13.9 g/dL (13.0-16.5); Immature Granulocytes Count 0.020 X10^3/uL (0.0-0.0); Mean Corp Hgb Conc 34.8 g/dL (32-36); Mean Corpuscular Volume 90.3 fL (80-94); Mean Platelet Vol. 9.6 fl (6.2-12.0); NRBC Flagged by Analyzer 0 % (0-5); Platelet Count 238 K/mm3 (150-450); RBC Distribution Width CV 11.9 % (11.6-14.6); RBC Distribution Width SD 39.7 fl (35.1-43.9); Red Blood Count 4.43 M/mm3 (4.6-6.2); White Blood Count 8.5 K/mm3 (4.4-11.0)
[2025-01-19 15:25] LABS: AST(SGOT) 35 U/L (<=37); Alanine Aminotransfer ALT/SGPT 34 U/L (<=46); Albumin, Serum 4.3 g/dL (3.5-5.0); Alkaline Phosphatase 75 U/L (40-129); Anion Gap 14 (5-15); BUN 19 mg/dL (4-19); BUN/Creat Ratio 26.0 RATIO (10-20); Calcium,Total 9.4 mg/dL (7.6-11.0); Carbon Dioxide 20.2 mmol/L (21.0-32.0); Chloride 103 mmol/L (98-108); Globulin 3.2 g/dL (2.2-4.2); Glucose 128 mg/dL (70-99); Potassium 3.9 mmol/L (3.3-5.1)
== END | disposition home or self-care (01) ==
PROVIDERS: PCP Family Medicine; Referring Provider Internal Medicine Rheumatology; Visit Provider Internal Medicine Rheumatology
DX: M06.09 Rheumatoid arthritis without rheumatoid factor, multiple sites (principal); Z79.899 Other long term (current) drug therapy
CPT/HCPCS: 36415; 80053; 85025

== ENCOUNTER → 2025-04-07 | Outpatient (CLI) | payer BC, SELFPAY ==
--- OUTSIDE RECORDS SUMMARY | 2025-04-07 11:10 | XMS RPT_ITS | CCD ---
Author Organization [facility] InformFormerly [facility] Care Team Providers Care Fuel Oil Clerk Name Role Phone Castle, Inna Unavailable Unavailable Castle, Inna Unavailable Unavailable MALGORZATA Moss, Neetu Cheung Unavailable Unavailabl e DeFinis, Harumi Y Unavailable Unavailable Castle, Inna Unavailable Unavailable Castle, Inna Unavailable Unavailable DeFinis, Harumi Y Unavailable Unavailable Renny Santana MD Unavailable [phone] Castle, Inna Unavailable Unavailable MALGORZATA Moss, Neetu Cheung Unavailable Unavailabl e Castle, Inna Unavailable Unavailable MALGORZATA Moss, Neetu Cheung Unavailable Unavailabl e Castle, Inna Unavailable Unavailable Castle, Inna Unavailable Unavailable BONNIE Morse, Zamzam Cheung Unavailable Dr. Jovanny Gillette Primary Care Provider Dr. Abelardo Coleman Emergency Provider [phone] Dr. Jeffrey Conley Admit Provider Dr. Jeffrey Conley Attending Provider Dr. Jeffrey Conley Other Provider Dr. Susie Kessler Attending Provider Dr. Susie Kessler Other Provider Friend, Dr. Ghosh Other Provider Dr. Bethel Ortiz Other Provider Friend, Dr. Ghosh Attending Provider Lisbet Mena Attending Provider Unavailable Dr. James Benitez Attending Provider Dr. Ajit Way Other Provider Dr. Ajit Way Referring Provider Dr. Bethel Ortiz Attending Provider Seamus, Dr. Fong Attending Provider Dr. Jovanny Gillette Referring Provider BONNIE Cummins Attending Provider Dr. Jovanny Gillette Primary Care Provider Dr. Jovanny Gillette Referring Provider Roxy, Dr. Ghosh Attending Provider Friend, Dr. Ghosh Other Provider Nain ROSALES, Dr. Petty Primary Care Provider Nain ROSALES, Dr. Petty Attending Provider Nain ROSALES, Dr. Petty Referring Provider [phone] Mila ROSALES, Dr. Schultz Other Provider Mila ROSALES, Dr. Schultz Attending Provider Mila ROSALES, Dr. Schultz Referring Provider Armando Sainz Attending Provider Nain ROSALES, Dr. Petty Primary Care Physician Mila ROSALES, Dr. Schultz Attending Physician Mila ROSALES, Dr. Schultz Referring Provider Nain ROSALES, Dr. Petty Referring Provider [phone] Armando Sainz Attending Physician Gillette, Jovanny Primary Care Unavailable Vellanki, Marion Referring Unavailable Vellanki, Marion Attending Unavailable Vellanki, Marion Referring Unavailable Vellanki, Marion Attending Unavailable Gillette, Jovanny Primary Care Unavailable Augie Ramsey Attending Unavailable Gillette, Jovanyn Primary Care Unavailable Gillette, Jovanny Primary Care Unavailable Armando Sainz Attending Unavailable Gillette, Jovanny Referring Unavailable Vellanki, Marion Consulting Unavailable Gillette, Jovanny Referring Unavailable Gillette, Jovanny Attending Unavailable Gillette, Jovanny Primary Care Unavailable Gillette, Jovanny Primary Care Unavailable Vellanki, Marion Referring Unavailable Vellanki, Marion Attending Unavailable Medications Current Medications Medication Drug Class(es) Dates Sig (Normalized) Sig (Original) acetaminophen 325 mg / oxyCODONE hydrochloride 5 mg oral tablet (2 sources) Opioid Agonist Start: 09-09-2021 take 1 tablet by mouth every six hours Oxycodone-Acetami nophen Active 1 - 2 TABLET PO EVERY 6 HOURS 10 3 September 09, 2021 3:16pm [id number] 200 actuat albuterol 0.09 mg/actuat metered dose inhaler (20 sources) beta2-Adrenergic Agonist Start: 07-23-2017 take 1 puff(s) by inhalation every six hours Albuterol Sulfate (Proair Hfa) 90 mcg/actuation HFA aerosol inhaler Active 2 PUFF INHALATION EVERY 6 HOURS July 23, 2017 9:43am Start: 07-23-2017 Start: 07-23-2017 Albuterol Sulf ate (Proair Hfa) 90 mcg/actuation HFA aerosol inhaler Active 2 PUFF INHALATION NEEDED July 23, 2017 12:00am Start: 11-28-2016 PROAIR HFA 108 (90 Base) MCG/ACT AERS as directed ALBUTEROL SULFATE [id number] Inna Castle Start: 11-28-2016 PROAIR HFA 108 (90 Base) MCG/ACT AERS as directed ALBUTEROL SULFATE [id number] Inna Castle Start: 11-28-2016 PROAIR HFA 108 (90 Base) MCG/ACT AERS ALBUTEROL SULFATE [id number] Neetu Moss RN 1 ml etanercept 50 mg/ml prefilled syringe (10 sources) Tumor Necrosis Factor Binh Start: 01-02-2022 120 actuat fluticasone propionate 0.22 mg/actuat metered dose inhaler (20 sources) Corticosteroid Start: 07-23-2017 take 1 puff(s) by inhalation twice daily Fluticasone Propionate (Flovent Hfa) 220 mcg/actuation HFA aerosol inhaler Active 1 PUFF INHALATION TWICE A DAY July 23, 2017 9:43am Start: 07-23-2017 Start: 07-23-2017 Fluticasone Pr opionate (Flovent Hfa) 220 mcg/actuation HFA aerosol inhaler Active 1 PUFF INHALATION NEEDED July 23, 2017 12:00am Start: 11-28-2016 FLOVENT HFA 22 0 MCG/ACT AERO as directed FLUTICASONE PROPIONATE HFA [id number] Neetu Moss RN Start: 11-28-2016 FLOVENT HFA 22 0 MCG/ACT AERO as directed FLUTICASONE PROPIONATE HFA [id number] Neetu Moss RN hydroxychloroquine sulfate 200 mg oral tablet (1 source) Antimalarial, Antirheumatic Agent Start: 11-30-2020 take 200 mg by mouth twice daily Hydroxychloroquine Active 200 MG PO TWICE A DAY November 30, 2020 8:17am losartan potassium 100 mg oral tablet (20 sources) Angiotensin 2 Receptor Binh Start: 07-23-2017 Start: 07-23-2017 take 50 mg by mouth once daily Losartan Active 50 MG PO daily July 23, 2017 12:00am Start: 07-23-2017 take 100 mg by mouth once sarah y Losartan Active 100 MG PO daily July 23, 2017 9:44am Start: 11-18-2016 LOSARTAN POTAS SIUM TABS ONE TABLET DAILY LOSARTAN POTASSIUM TABS [id number] Renny Santana MD Start: 11-18-2016 take 1 tablet by morris th once daily LOSARTAN POTASSIUM 100 MG TABS One tablet by mouth daily LOSARTAN POTASSIUM [id number] Neetu Moss RN Start: 11-18-2016 LOSARTAN POTAS SIUM TABS ONE TABLET DAILY LOSARTAN POTASSIUM TABS [id number] Renny Santana MD meclizine hydrochloride 25 mg oral tablet (1 source) Antiemetic Start: 11-30-2020 take 25 mg by mouth three times daily Meclizine Active 25 MG PO THREE TIMES A DAY November 30, 2020 10:33am potassium citrate 5 meq extended release oral tablet (10 sources) Start: 01-02-2022 take 1 tablet by mouth once daily predniSONE 10 mg oral tablet (17 sources) Start: 11-30-2020 End: 11-03-2024 Completed/Discontinued Medications Medication Drug Class(es) Dates Sig (Normalized) Sig (Original) amLODIPine 5 mg oral tablet (14 sources) Dihydropyridine Calcium Channel Binh Start: 11-18-2016 take 1 tablet by mouth once daily AMLODIPINE BESYLATE 5 MG TABS One tablet by mouth daily AMLODIPINE BESYLATE [id number] Neetu Moss RN AMLODIPINE BESY-BENAZEPRIL HCL CAPS (16 sources) Dihydropyridine Calcium Channel Binh, Angiotensin Converting Enzyme Inhibitor Start: 11-18-2016 AMLODIPINE BESY-BENAZEPRIL HCL CAPS one tablet daily AMLODIPINE BESY-BENAZEPRIL HCL CAPS [id number] Renny Santana MD Start: 11-18-2016 AMLODIPINE BES Y-BENAZEPRIL HCL CAPS one tablet daily AMLODIPINE BESY-BENAZEPRIL HCL CAPS [id number] Renny Santana MD atorvastatin 20 mg oral tablet (20 sources) HMG-CoA Reductase Inhibitor Start: 07-23-2017 End: 09-17-2021 take 1 tablet by mouth at bedtime Atorvastatin 20 mg tablet Discontinued 20 mg PO AT BEDTIME 90 3 August 29, 2020 12:00pm September 17, 2021 12:18pm Start: 12-16-2016 take 1 tablet by morris once daily LIPITOR 20 MG TABS One tablet by mouth every night ATORVASTATIN CALCIUM [id number] Lisbet Oconnor OFFICE TECHNICIAN busPIRone (20 sources) Start: 11-28-2016 take 2 tablets by mo uth twice daily BUSPAR TABS Two tablets by mouth twice daily BUSPIRONE HCL TABS Neetu Moss RN Start: 11-28-2016 End: 12-02-2016 take 2 tablets by mouth twice daily BUSPAR TABS Two tablets by mouth twice daily BUSPIRONE HCL TABS Inna Tin Start: 11-28-2016 End: 12-02-2016 take 2 tablets by mouth twice daily BUSPAR TABS Two tablets by mouth twice daily BUSPIRONE HCL TABS Inna Tin Start: 11-28-2016 take 2 tablets by mo uth twice daily BUSPAR TABS Two tablets by mouth twice daily BUSPIRONE HCL TABS Neetu Moss RN COENZYME Q10 (20 sources) Start: 11-28-2016 End: 12-02-2016 take 1 tablet by mouth once daily CO Q-10 100 MG CAPS One tablet by mouth daily COENZYME Q10 [id number] Inna Castle Start: 11-28-2016 take 1 tablet by morris th once daily CO Q-10 100 MG CAPS One tablet by mouth daily COENZYME Q10 [id number] Neetu Moss RN Start: 11-28-2016 End: 12-02-2016 take 1 tablet by mouth once daily CO Q-10 100 MG CAPS One tablet by mouth daily COENZYME Q10 [id number] Inna Castle Start: 11-28-2016 End: 12-02-2016 take 1 tablet by mouth once daily CO Q-10 100 MG CAPS One tablet by mouth daily COENZYME Q10 [id number] Inna Castle Start: 11-28-2016 take 1 tablet by morris th once daily CO Q-10 100 MG CAPS One tablet by mouth daily COENZYME Q10 [id number] Neetu Moss RN lansoprazole 30 mg delayed release oral capsule (16 sources) Proton Pump Inhibitor Start: 11-18-2016 PREVACID 30 MG CPDR once daily LANSOPRAZOLE [id number] Renny Santana MD Start: 11-18-2016 PREVACID 30 MG CPDR once daily LANSOPRAZOLE [id number] Renny Santana MD LORazepam 1 mg oral tablet (20 sources) Benzodiazepine Start: 11-28-2016 End: 12-02-2016 LORAZEPAM 1 MG TABS needed LORAZEPAM [id number] Neetu Moss RN magnesium oxide 400 mg oral tablet (20 sources) Start: 11-28-2016 End: 12-02-2016 take 1 tablet by mouth once daily MAGNESIUM OXIDE 400 MG TABS One tablet by mouth daily MAGNESIUM OXIDE [id number] Neetu Moss RN montelukast 10 mg oral tablet (20 sources) Leukotriene Receptor Antagonist Start: 11-18-2016 SINGULAIR 10 MG TABS ONE TAB DAILY MONTELUKAST SODIUM [id number] Renny Santana MD MULTIPLE VITAMINS-MINERALS (9 sources) Start: 11-28-2016 take 1 tablet by mouth once daily MULTIVITAMIN ADULT TABS One tablet by mouth daily MULTIPLE VITAMINS-MINERALS [id number] Neetu Moss RN MULTIPLE VITAMINS-MINERALS (5 sources) Start: 11-28-2016 take 1 tablet by mouth once daily MULTIVITAMIN ADULT TABS One tablet by mouth daily MULTIPLE VITAMINS-MINERALS [id number] Neetu Moss RN Start: 11-28-2016 take 1 tablet by morris th once daily MULTIVITAMIN ADULT TABS One tablet by mouth daily MULTIPLE VITAMINS-MINERALS [id number] Neetu Moss RN omeprazole 40 mg delayed release oral capsule (20 sources) Proton Pump Inhibitor Start: 11-28-2016 End: 12-02-2016 take 1 tablet by mouth once daily OMEPRAZOLE 40 MG CPDR One tablet by mouth daily OMEPRAZOLE [id number] Neetu Moss RN Problems Active Problems Problem Classification Problem Date Documented Date Episodic/Chronic Asthma (16 sources) Asthma; Translations: [Unspecified asthma, uncomplicated] Onset: 11-18-2016 11-18-2016 Chronic Biliary tract disease (16 sources) Calculus of common bile duct with acute cholecystitis; Translations: [Calculus of bile duct with acute cholecystitis without obstruction] Episodic Conditions associated with dizziness or vertigo (20 sources) Dizziness and giddiness; Translations: [Dizziness and giddiness] Onset: 12-02-2016 12-02-2016 Episodic Disorders of lipid metabolism (19 sources) Hyperlipidemia; Translations: [Hyperlipidemia, unspecified] Onset: 12-16-2016 12-16-2016 Chronic Esophageal disorders (16 sources) Gastroesophageal reflux disease; Translations: [Gastro-esophageal reflux disease without esophagitis] Onset: 11-18-2016 11-18-2016 Chronic Essential hypertension (20 sources) Hypertensive disorder; Translations: [Essential (primary) hypertension] Onset: 11-18-2016 11-18-2016 Chronic Comment on above: CONTROLLED WITH MED Osteoarthritis (14 sources) Arthritis; Translations: [Unspecified osteoarthritis, unspecified site] 11-30-2020 Chronic Other lower respiratory disease (14 sources) Dyspnea; Translations: [Dyspnea, unspecified] 11-30-2020 Episodic Other nutritional; endocrine; and metabolic disorders (20 sources) Body mass index (BMI) 39.0-39.9, adult; Translations: [Body mass index (BMI) 37.0-37.9, adult] Onset: 11-28-2016 11-28-2016 Chronic Other nutritional; endocrine; and metabolic disorders (4 sources) Body mass index (BMI) 37.0-37.9, adult; Translations: [Body mass index (BMI) 37.0-37.9, adult] Onset: 12-02-2016 12-02-2016 Chronic Other nutritional; endocrine; and metabolic disorders (14 sources) Obesity; Translations: [Obesity, unspecified] 07-23-2017 Chronic Pancreatic disorders (not diabetes) (16 sources) Gallstone acute pancreatitis; Translations: [Biliary acute pancreatitis without necrosis or infection] Episodic Residual codes; unclassified (14 sources) Obstructive sleep apnea syndrome; Translations: [Obstructive sleep apnea (adult) (pediatric)] 07-23-2017 Chronic Residual codes; unclassified (14 sources) History of palpitations; Translations: [Personal history of other specified conditions] 07-23-2017 Episodic Residual codes; unclassified (12 sources) Past history of procedure; Translations: [Other specified postprocedural states] 09-10-2021 Episodic Residual codes; unclassified (2 sources) Other specified postprocedural states; Translations: [Other postprocedural status] Episodic Residual codes; unclassified (3 sources) Acquired absence of other specified parts of digestive tract; Translations: [Other postprocedural status] Episodic Rheumatoid arthritis and related disease (2 sources) Rheumatoid arthritis without rheumatoid factor, multiple sites; Translations: [Rheumatoid arthritis without rheumatoid factor, unspecified site] Onset: 07-26-2024 Chronic Unclassified (12 sources) Screening for malignant neoplasm of colon ; Translations: [Encounter for screening for malignant neoplasm of colon] Onset: 11-18-2016 11-19-2016 Unclassified (1 source) Long-term drug therapy; Translations: [Other termite helper (current) drug therapy] Onset: 12-16-2016 12-16-2016 Past or Other Problems Problem Classification Problem Date Documented Date Episodic/Chronic Abdominal pain (5 sources) Right flank pain; Translations: [Unspecified abdominal pain] Onset: 11-03-2024 11-03-2024 Episodic Cardiac dysrhythmias (14 sources) Palpitations; Translations: [Palpitations] Onset: 11-28-2016 11-28-2016 Episodic Nonspecific chest pain (11 sources) Chest pain; Translations: [Chest pain, unspecified] Onset: 12-02-2016 12-02-2016 Episodic Other aftercare (4 sources) Other group home (current) drug therapy; Translations: [Other termite helper (current) drug therapy] Onset: 12-16-2016 12-16-2016 Episodic Other screening for suspected conditions (not mental disorders or infectious disease) (14 sources) Electrocardiogram abnormal; Translations: [Abnormal electrocardiogram [ECG] [EKG]] Onset: 11-28-2016 11-28-2016 Episodic Pneumonia (16 sources) Pneumonia; Translations: [Pneumonia, unspecified organism] Onset: 11-18-2016 11-18-2016 Episodic Results Test Name Value Interpretation Reference Range Facility Absolute lymphocyte countOrd ered By: Marion Zaragoza on 01-19-2025 Lymphocytes Auto (Unsp spec) [#/Vol] 1.69 10*3/uL 0.83-4.51 [facility] Absolute neutrophil countOrd ered By: Marion Zaragoza on 01-19-2025 Neutrophils (Bld) [#/Vol] 6.1 10*3/uL 2.0-7.7 [facility] Anion gap in Serum or Plasma Ordered By: Marion Zaragoza on 01-19-2025 Anion gap [Moles/Vol] 14 mmol/L 5-15 [facility] Automated lymphocyte count a s percentage of total leukocytesOrdered By: Marion Zaragoza on 01-19-2025 Lymphocytes/100 WBC Auto (Unsp spec) 19.9 % 19-41 [facility] BUN/creatinine ratioOrdered By: Marion Zaragoza on 01-19-2025 Urea nitrogen/Creatinine [Mass ratio] 26.0 mg/mg High 10-20 [facility] Basophil percentageOrdered B y: Marion Zaragoza on 01-19-2025 Basophils/100 WBC (Bld) 0.6 % 0-1 [facility] Bilirubin, totalOrdered By: Marion Zaragoza on 01-19-2025 Bilirubin [Mass/Vol] 0.47 mg/dL 0.00-1.30 [facility] CBC W/Diff, Automatedon 09-05 11-2024 Absolute Lymph 1.69 X10 3/uL Normal 0.83-4.51 [facility] Comment on above: Performed By: #### L 100.0100, L500.4050 #### [facility] [address] [place], [address] Absolute Neut 6.1 X10 3/uL Normal 2.0-7.7 [facility] Comment on above: Performed By: #### L 100.0100, L500.4050 #### [facility] [address] [place], [address] Basophils/100 WBC (Bld) 0.6 % Normal 0-1 [facility] Comment on above: Performed By: #### L 100.0100, L500.4050 #### [facility] [address] [place], [address] Eosinophils/100 WBC (Bld) 0.4 % Normal 0-5 [facility] Comment on above: Performed By: #### L 100.0100, L500.4050 #### [facility] [address] [place], [address] Erythrocyte distribution width (RBC) [Ratio] 11.9 % Normal 11.6-14.6 [facility] Comment on above: Performed By: #### L 100.0100, L500.4050 #### [facility] [address] [place], [address] Hematocrit (Bld) [Volume fraction] 40.0 % Normal 40-54 [facility] Comment on above: Performed By: #### L 100.0100, L500.4050 #### [facility] [address] [place], [address] Hemoglobin (Bld) [Mass/Vol] 13.9 g/dL Normal 13.0-16.5 [facility] Comment on above: Performed By: #### L 100.0100, L500.4050 #### [facility] [address] [place], [address] IG% 0.200 Normal 0.0-0.9 [facility] Comment on above: Result Comment: IG% - Immature Granulocytes (promyelocytes, myelocytes and metamyelocytes) > 1% indicates that a LEFT SHIFT is Present. Performed By: #### L 100.0100, L500.4050 #### [facility] [address] [place], [address] Lymphocytes/100 WBC (Bld) 19.9 % Normal 19-41 [facility] Comment on above: Performed By: #### L 100.0100, L500.4050 #### [facility] [address] [place], [address] MCH (RBC) [Entitic mass] 31.4 pg Normal 27.0-32.0 [facility] Comment on above: Performed By: #### L 100.0100, L500.4050 #### [facility] [address] [place], [address] MCHC (RBC) [Mass/Vol] 34.8 g/dL Normal 32-36 [facility] Comment on above: Performed By: #### L 100.0100, [id number] #### [facility] [address] [place], [address] MCV (RBC) [Entitic vol] 90.3 fL Normal 80-94 [facility] Comment on above: Performed By: #### L 100.0100, L500.4050 #### [facility] [address] [place], [address] Monocytes/100 WBC (Bld) 7.8 % Normal 0-10 [facility] Comment on above: Performed By: #### L 100.0100, L500.4050 #### [facility] [address] [place], [address] Neutrophils/100 WBC (Bld) 71.1 % High 47-70 [facility] Comment on above: Performed By: #### L 100.0100, L500.4050 #### [facility] [address] [place], [address] Nucleated RBC (Bld) [#/Vol] 0 10*3/uL Normal 0-5 [facility] Comment on above: Performed By: #### L 100.0100, L500.4050 #### [facility] [address] [place], [address] Platelet mean volume (Bld) [Entitic vol] 9.6 fL Normal 6.2-12.0 [facility] Comment on above: Performed By: #### L 100.0100, L500.4050 #### [facility] [address] [place], [address] Platelets (Bld) [#/Vol] 238 10*3/uL Normal 150-450 [facility] Comment on above: Performed By: #### L 100.0100, L500.4050 #### [facility] [address] [place], [address] RBC (Bld) [#/Vol] 4.43 10*6/uL Low 4.6-6.2 [facility] Comment on above: Performed By: #### L 100.0100, L500.4050 #### [facility] [address] [place], [address] RDW SD 39.7 fl Normal 35.1-43.9 [facility] Comment on above: Performed By: #### L 100.0100, L500.4050 #### [facility] [address] [place], [address] WBC (Bld) [#/Vol] 8.5 10*3/uL Normal 4.4-11.0 [facility] Comment on above: Performed By: #### L 100.0100, L500.4050 #### [facility] [address] [place], [address] Carbon dioxide, total [Moles /volume] in Central venous bloodOrdered By: Marion Zaragoza on 01-19-2025 CO2 [Moles/Vol] 20.2 mmol/L Low 21.0-32.0 [facility] Chloride assayOrdered By: Kash Zaragoza on 01-19-2025 Chloride [Moles/Vol] 103 mmol/L 98-108 [facility] ilon 01-19-2025 Albumin [Mass/Vol] 4.3 g/dL Normal 3.5-5.0 [facility] Comment on above: Order Comment: PLEAS E SEND RESULTS TO AND DR. GILLETTE Performed By: #### L 100.0100, L500.4050 #### [facility] [address] [place], [address] Albumin/Globulin [Mass ratio] 1.3 {ratio} Normal 0.9-2.4 [facility] Comment on above: Order Comment: PLEAS E SEND RESULTS TO AND DR. GILLETTE Performed By: #### L 100.0100, L500.4050 #### [facility] [address] [place], [address] ALK PHOS 75 U/L Normal 40-129 [facility] Comment on above: Order Comment: PLEAS E SEND RESULTS TO AND DR. GILLETTE Performed By: #### L 100.0100, L500.4050 #### [facility] [address] [place], [address] ALT [Catalytic activity/Vol] 34 U/L Normal <=46 [facility] Comment on above: Order Comment: PLEAS E SEND RESULTS TO AND DR. GILLETTE Performed By: #### L 100.0100, L500.4050 #### [facility] [address] [place], [address] AST [Catalytic activity/Vol] 35 U/L Normal <=37 [facility] Comment on above: Order Comment: PLEAS E SEND RESULTS TO AND DR. GILLETTE Performed By: #### L 100.0100, L500.4050 #### [facility] [address] [place], [address] Bilirubin [Mass/Vol] 0.47 mg/dL Normal 0.00-1.30 [facility] Comment on above: Order Comment: PLEAS E SEND RESULTS TO AND DR. GILLETTE Performed By: #### L 100.0100, L500.4050 #### [facility] [address] [place], [address] BUN/CRE 26.0 RATIO High 10-20 [facility] Comment on above: Order Comment: PLEAS E SEND RESULTS TO AND DR. GILLETTE Performed By: #### L 100.0100, L500.4050 #### [facility] [address] [place], [address] Calcium [Mass/Vol] 9.4 mg/dL Normal 7.6-11.0 [facility] Comment on above: Order Comment: PLEAS E SEND RESULTS TO AND DR. GILLETTE Performed By: #### L 100.0100, L500.4050 #### [facility] [address] [place], [address] Chloride [Moles/Vol] 103 mmol/L Normal 98-108 [facility] Comment on above: Order Comment: PLEAS E SEND RESULTS TO AND DR. GILLETTE Performed By: #### L 100.0100, [id number] #### [facility] [address] [place], [address] CO2 [Moles/Vol] 20.2 mmol/L Low 21.0-32.0 [facility] Comment on above: Order Comment: PLEAS E SEND RESULTS TO AND DR. GILLETTE Performed By: #### L 100.0100, L500.4050 #### [facility] [address] [place], [address] Creatinine [Mass/Vol] 0.74 mg/dL Normal 0.70-1.20 [facility] Comment on above: Order Comment: PLEAS E SEND RESULTS TO AND DR. GILLETTE Performed By: #### L 100.0100, L500.4050 #### [facility] [address] [place], [address] GAP 14 Normal 5-15 [facility] Comment on above: Order Comment: PLEAS E SEND RESULTS TO AND DR. GILLETTE Performed By: #### L 100.0100, L500.4050 #### [facility] [address] [place], [address] GFR/1.73 sq M.predicted among non-blacks MDRD (S/P/Bld) [Vol rate/Area] 108 mL/min/{1.73_m2} Normal >60 [facility] Comment on above: Order Comment: PLEAS E SEND RESULTS TO AND DR. GILLETTE Result Comment: mL/m in/1.73m2 CKD-EPI Creatinine Equation (2020) Performed By: #### L 100.0100, L500.4050 #### [facility] [address] [place], [address] Globulin (S) [Mass/Vol] 3.2 g/dL Normal 2.2-4.2 [facility] Comment on above: Order Comment: PLEAS E SEND RESULTS TO AND DR. GILLETTE Performed By: #### L 100.0100, L500.4050 #### [facility] [address] [place], [address] Glucose [Mass/Vol] 128 mg/dL High 70-99 [facility] Comment on above: Order Comment: PLEAS E SEND RESULTS TO AND DR. GILLETTE Performed By: #### L 100.0100, L500.4050 #### [facility] [address] [place], [address] Potassium [Moles/Vol] 3.9 mmol/L Normal 3.3-5.1 [facility] Comment on above: Order Comment: PLEAS E SEND RESULTS TO AND DR. GILLETTE Performed By: #### L 100.0100, L500.4050 #### [facility] [address] [place], [address] Sodium [Moles/Vol] 137 mmol/L Normal 133-145 [facility] Comment on above: Order Comment: PLEAS E SEND RESULTS TO AND DR. GILLETTE Performed By: #### L 100.0100, L500.4050 #### [facility] [address] [place], [address] T PROT 7.5 g/dL Normal 5.9-8.4 [facility] Comment on above: Order Comment: PLEAS E SEND RESULTS TO AND DR. GILLETTE Performed By: #### L 100.0100, L500.4050 #### [facility] [address] [place], [address] Urea nitrogen [Mass/Vol] 19 mg/dL Normal 4-19 [facility] Comment on above: Order Comment: PLEAS E SEND RESULTS TO AND DR. GILLETTE Performed By: #### L 100.0100, L500.4050 #### [facility] [address] [place], [address] Eosinophil percentageOrdered By: Marion Zaragoza on 01-19-2025 Eosinophils/100 WBC (Bld) 0.4 % 0-5 [facility] Erythrocyte distribution wid th ratioOrdered By: Marion Zaragoza on 01-19-2025 Erythrocyte distribution width (RBC) [Ratio] 11.9 % 11.6-14.6 [facility] Erythrocyte distribution wid th standard deviationOrdered By: Marion Zaragoza on 01-19-2025 Erythrocyte distribution width (RBC) [Ratio] 39.7 fl 35.1-43.9 [facility] Glomerular filtration rate ( GFR) estimation/1.73 sq m using serum, plasma, or whole bOrdered By: Marion Zaragoza on 01-19-2025 GFR/1.73 sq M.predicted among non-blacks MDRD (S/P/Bld) [Vol rate/Area] 108 mL/min/{1.73_m2} >60 [facility] Comment on above: mL/min/1.73m2 CKD-EP I Creatinine Equation (2020) Hematocrit Auto (Bld) [Volum e fraction]Ordered By: Marion Zaragoza on 01-19-2025 Hematocrit (Bld) [Volume fraction] 40.0 % 40-54 [facility] Hemoglobin measurementOrdere d By: Marion Zaragoza on 01-19-2025 Hemoglobin (Bld) [Mass/Vol] 13.9 g/dL 13.0-16.5 [facility] Immature granulocytes/100 WB C Auto (Bld)Ordered By: Marion Zaragoza on 01-19-2025 Immature granulocytes/100 WBC (Bld) 0.200 % 0.0-0.9 [facility] Comment on above: IG% - Immature Granu locytes (promyelocytes, myelocytes and metamyelocytes) > 1% indicates that a LEFT SHIFT is Present. Laboratory - Chemistry and C hemistry - challengeOrdered By: Marion Zaragoza on 01-19-2025 AST [Catalytic activity/Vol] 35 U/L <38 [facility] MCV (mean corpuscular volume ) determinationOrdered By: Marion Zaragoza on 01-19-2025 MCV (RBC) [Entitic vol] 90.3 fL 80-94 [facility] Mean corpuscular hemoglobin (MCH) determinationOrdered By: Marion Zaragoza 01-19-2025 MCH (RBC) [Entitic mass] 31.4 pg 27.0-32.0 [facility] Mean corpuscular hemoglobin concentration (MCHC) determinationOrdered By: Marion Zaragoza on 01-19-2025 MCHC (RBC) [Mass/Vol] 34.8 g/dL 32-36 [facility] Mean platelet volume determi nationOrdered By: Marion Zaragoza on 01-19-2025 Platelet mean volume (Bld) [Entitic vol] 9.6 fL 6.2-12.0 [facility] Monocyte percentageOrdered B y: Marion Zaragoza on 01-19-2025 Monocytes/100 WBC (Bld) 7.8 % 0-10 [facility] Neutrophil percentageOrdered By: Marion Zaragoza on 01-19-2025 Neutrophils/100 WBC (Bld) 71.1 % High 47-70 [facility] Nucleated red blood cell per centageOrdered By: Marion Zaragoza on 01-19-2025 Nucleated RBC/100 WBC (Bld) [Ratio] 0 % 0-5 [facility] Platelet countOrdered By: Kash Zaragoza on 01-19-2025 Platelets (Bld) [#/Vol] 238 10*3/uL 150-450 [facility] Potassium measurement (mass/ volume)Ordered By: Marion Zaragoza on 01-19-2025 Potassium (Unsp spec) [Mass/Vol] 3.9 mmol/L 3.3-5.1 [facility] RBC Auto (Bld) [#/Vol]Ordere d By: Marion Zaragoza on 01-19-2025 RBC (Bld) [#/Vol] 4.43 10*6/uL Low 4.6-6.2 [facility] Serum creatinine measurement (mass/volume)Ordered By: Marion Zaragoza on 01-19-2025 Creatinine [Mass/Vol] 0.74 mg/dL 0.70-1.20 [facility] Serum globulin measurementOr dered By: Marion Zaragoza on 01-19-2025 Globulin (S) [Mass/Vol] 3.2 g/dL 2.2-4.2 [facility] Serum glucose measurement (m ass/volume)Ordered By: Marion Zaragoza on 01-19-2025 Glucose [Mass/Vol] 128 mg/dL High 70-99 [facility] Serum or plasma alanine haley otransferase (ALT) measurementOrdered By: Marion Zaragoza on 01-19-2025 ALT [Catalytic activity/Vol] 34 U/L <47 [facility] Serum or plasma albumin kiara urement (mass/volume)Ordered By: Marion Zaragoza on 01-19-2025 Albumin [Mass/Vol] 4.3 g/dL 3.5-5.0 [facility] Serum or plasma albumin/glob ulin mass ratioOrdered By: Marion Zaragoza on 01-19-2025 Albumin/Globulin [Mass ratio] 1.3 {ratio} 0.9-2.4 [facility] Serum or plasma alkaline claire sphatase measurementOrdered By: Marion Zaragoza on 01-19-2025 ALP [Catalytic activity/Vol] 75 U/L 40-129 [facility] Serum or plasma calcium kiara urement (mass/volume)Ordered By: Marion Zaragoza on 01-19-2025 Calcium [Mass/Vol] 9.4 mg/dL 7.6-11.0 [facility] Serum or plasma urea nitroge n measurement (mass/volume)Ordered By: Marion Zaragoza on 01-19-2025 Urea nitrogen [Mass/Vol] 19 mg/dL 4-19 [facility] Sodium levelOrdered By: Mario Zaragoza on 01-19-2025 Sodium [Moles/Vol] 137 mmol/L 133-145 [facility] Total proteinOrdered By: Fernanda Zaragoza on 01-19-2025 Protein [Mass/Vol] 7.5 g/dL 5.9-8.4 [facility] White blood cell (WBC) count Ordered By: Marion Zaragoza on 01-19-2025 WBC (Bld) [#/Vol] 8.5 10*3/uL 4.4-11.0 [facility] Laboratory - Chemistry and C hemistry - challengeOrdered By: Armando Sutton on 11-03-2024 Bilirubin Ql (U) Negative [facility] Glucose Ql (U) Negative [facility] Ketones Ql (U) Negative [facility] pH (U) 7.0 [pH] [facility] Specific gravity (U) [Rel density] 1.020 [facility] Urobilinogen (U) [Mass/Vol] 2 mg/dL [facility] - Hematology and Cell countsOrdered By: Armando Sutton on 11-03-2024 Hemoglobin Ql (U) Negative [facility] - Specimen inform ationOrdered By: Armando Sutton on 11-03-2024 Clarity (U) Clear [facility] Color (U) DARK YELLOW [facility] - UrinalysisOrder ed By: Armando Sutton on 11-03-2024 Nitrite Ql (U) Negative [facility] Protein Ql (U) Negative [facility] No Panel InformationOrdered By: Armando Sutton on 11-03-2024 Urine Leukocytes Positive [facility] Comment on above: Trace Urine Non-Hemolyzed Blood Negative [facility] Urgent Care Visit Reporton 0 11-03-2024 Urgent Care Visit Report [facility] [address] , [address] [place] [address] OFFICE VISIT Date of Service: 11/03/24 MR#: [id number] Acct: [id number] Name: LISBET MAYER Rep #: [id number] : 1970 Provider: KASH Chino Age/Sex: 54/M Location: [facility] [place] Status: Signed Intake Vital Signs 01/07/22 11:36 11/03/24 10:25 Height 5 ft 6 in BP 142/80 H Blood Pressure Location Lt brachial Position Sitting Respiration 17 Pulse 72 Pulse Source NIBP Temp 98.3 F Temp Source Oral Pulse Oximetry (%) 98 Oxygen Delivery Method room air Intake Visit Reasons: RT SIDE PAIN Chief Complaint: right mid back pain 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: No Is patient in pain?: Yes Allergies No Known Allergies Allergy (Verified 11/03/24 10:22) Medications ???Medication ???Instructions ???Recorded ???Confirmed ???Type albuterol sulfate 90 mcg/actuation 2 puff inhalation PRN PRN 11/03/24 History aerosol inhaler (ProAir HFA) Shortness Of Breath fluticasone propionate 220 1 puff inhalation PRN PRN 07/23/17 11/03/24 History mcg/actuation HFA aerosol inhaler shortness of breath (Flovent HFA) losartan 100 mg tablet 50 mg PO QDAY Check with primary 0 07/23/17 11/03/24 History doctor atorvastatin 20 mg tablet 20 mg PO QHS #90 tabs 09/17/21 Rx etanercept 50 mg/mL (1 mL) 50 mg subcut FRASER 01/02/22 01/07/22 History subcutaneous syringe (Enbrel) potassium citrate 5 mEq (540 mg) 5 meq PO DAILY 01/02/22 11/03/24 H istory tablet,extended release prednisone 10 mg tablet 10 mg PO PRN PRN joint pain #20 0 11/03/24 11/03/24 Rx tabs Have you fallen in the past year?: No PFSH Medical History Cardiology follow-up encounter Loss of hearing History of steroid therapy Fatty liver High cholesterol Back pain Gastric reflux Chewing tobacco use Shortness of breath on exertion History of stress test History of echocardiogram Palpitation Alcohol abuse Anxiety Rheumatoid arthritis Former smoker Asthma Obstructive sleep apnea Obesity Hyperlipidemia Hypertension Surgical History (Updated 01/02/22 @ 10:34 by Layne Mcguire) History of ERCP Hx laparoscopic cholecystectomy History of repair of anterior cruciate ligament of left knee H/O repair of right rotator cuff Family History Father CAD (coronary artery disease) PCI-Stent late 50's Mother Colon cancer Social History Smoking Status: Former smoker Smokeless tobacco user: snuff alcohol intake: current alcohol intake frequency: 3 or more drinks per day Alcohol type: beer HPI HPI Chief Complaint: right mid back pain Details: LISBET MAYER, is a 54 M who presents to the office today for right mid back pain x 1 week without resolve. Patient reports that he lifts a lot at work and at home. He has tried stretches, ice. He saw his arthritis doctor and she gave him a pain med but pt cannot recall name. He denies change in B/B, denies numbness or tingling to legs. He denies blood in urine or fever. ROS Const Constitutional: No other (6 system ROS completed with pertinent findings in the HPI otherwise normal.) Exam Const General: cooperative and healthy appearing Resp Effort Inspection: normal respiratory effort Auscultation: Bilateral: Clear to Auscultation Cardio Rate: regular rate Rhythm: regular rhythm Skin General: no rashes or lesions noted Neuro General: patient alert Psych Appearance: grossly normal Mental Status: mental status grossly normal Results POC Urinalysis Dip (Clinic) Office Urine Color DARK YELLOW Last Edit by Nichole Akers MA on 11/03/24 10:36 Office Urine Clarity Clear Last Edit by Nichole Akers MA on 11/03/24 10:36 Office Urine Glucose Negative Last Edit by Nichole Akers MA on 11/03/24 10:36 Office Urine Ketones Negative Last Edit by Nichole Akers MA on 11/03/24 10:36 Off Ur Spec [place] 1.020 Last Edit by Nichole Akers MA on 11/03/24 10:36 Office Urine pH 7.0 Last Edit by Nichole Akers MA on 11/03/24 10:36 Office Urine Bilirubin Negative Last Edit by Nichole Akers MA on 11/03/24 10:36 Office Urine Urobilinogen 2 mg/dL Last Edit by Nichole Akers MA on 11/03/24 10:36 Office Urine Blood Negative Last Edit by Nichole Akers MA on 11/03/24 10:36 Office Urine Blood Hemolyzed Negative Last Edit by Nichole Akers MA on 11/03/24 10:36 Office Urine Protein Negative Last Edit by Nichole Akers MA on 11/03/24 10:36 Office Urine Nitrate Negative Last Edit by Nichole Akers MA on 11/03/24 10:36 Off Ur Leukocytes Positive Last Edit by Nichole Akers MA on 11/03/24 10:36 Trace Nichole Akers 11/03/24 10:36 Coding Lev (more content not included)... Normal [facility] Absolute lymphocyte countOrd ered By: Marion Zaragoza on 10-26-2024 Lymphocytes Auto (Unsp spec) [#/Vol] 2.11 10*3/uL 0.83-4.51 [facility] Absolute neutrophil countOrd ered By: Marion Zaragoza on 10-26-2024 Neutrophils (Bld) [#/Vol] 6.2 10*3/uL 2.0-7.7 [facility] Anion gap in Serum or Plasma Ordered By: Marion Zaragoza on 10-26-2024 Anion gap [Moles/Vol] 16 mmol/L High 5-15 [facility] Automated lymphocyte count a s percentage of total leukocytesOrdered By: Marion Zaragoza on 10-26-2024 Lymphocytes/100 WBC Auto (Unsp spec) 21.8 % - [facility] BUN/creatinine ratioOrdered By: Marionstarla Zaragoza on 10-26-2024 Urea nitrogen/Creatinine [Mass ratio] 11.3 mg/mg 10- [facility] Basophil percentageOrdered B y: Marion Zaragoza on 10-26-2024 Basophils/100 WBC (Bld) 0.6 % 0- [facility] Bilirubin, totalOrdered By: Marionstarla Zaragoza on 10-26-2024 Bilirubin [Mass/Vol] 0.77 mg/dL 0.00-1.30 [facility] CBC W/Diff, Automatedon 10-09 Absolute Lymph 2.11 X10 3/uL Normal 0.83-4.51 [facility] Comment on above: Performed By: #### L 500.4050, L501.6710, L505.7010, L101.9900, L501.1400, L100.0100 #### [facility] [address] [place], [address] Absolute Neut 6.2 X10 3/uL Normal 2.0-7.7 [facility] Comment on above: Performed By: #### L 500.4050, L501.6710, L505.7010, L101.9900, L501.1400, L100.0100 #### [facility] [address] [place], [address] Basophils/100 WBC (Bld) 0.6 % Normal 0-1 [facility] Comment on above: Performed By: #### L 500.4050, L501.6710, L505.7010, L101.9900, L501.1400, L100.0100 #### [facility] [address] [place], [address] Eosinophils/100 WBC (Bld) 3.3 % Normal 0-5 [facility] Comment on above: Performed By: #### L 500.4050, L501.6710, L505.7010, L101.9900, L501.1400, L100.0100 #### [facility] [address] [place], [address] Erythrocyte distribution width (RBC) [Ratio] 11.8 % Normal 11.6-14.6 [facility] Comment on above: Performed By: #### L 500.4050, L501.6710, L505.7010, L101.9900, L501.1400, L100.0100 #### [facility] [address] [place], [address] Hematocrit (Bld) [Volume fraction] 40.3 % Normal 40-54 [facility] Comment on above: Performed By: #### L 500.4050, L501.6710, L505.7010, L101.9900, L501.1400, L100.0100 #### [facility] [address] [place], [address] Hemoglobin (Bld) [Mass/Vol] 13.9 g/dL Normal 13.0-16.5 [facility] Comment on above: Performed By: #### L 500.4050, L501.6710, L505.7010, L101.9900, L501.1400, L100.0100 #### [facility] [address] [place], [address] IG% 0.200 Normal 0.0-0.9 [facility] Comment on above: Result Comment: IG% - Immature Granulocytes (promyelocytes, myelocytes and metamyelocytes) > 1% indicates that a LEFT SHIFT is Present. Performed By: #### L 500.4050, L501.6710, L505.7010, L101.9900, L501.1400, L100.0100 #### [facility] [address] [place], [address] Lymphocytes/100 WBC (Bld) 21.8 % Normal 19-41 [facility] Comment on above: Performed By: #### L 500.4050, L501.6710, L505.7010, L101.9900, L501.1400, L100.0100 #### [facility] [address] [place], [address] MCH (RBC) [Entitic mass] 31.4 pg Normal 27.0-32.0 [facility] Comment on above: Performed By: #### L 500.4050, L501.6710, L505.7010, L101.9900, L501.1400, L100.0100 #### [facility] [address] [place], [address] MCHC (RBC) [Mass/Vol] 34.5 g/dL Normal 32-36 [facility] Comment on above: Performed By: #### L 500.4050, L501.6710, L505.7010, L101.9900, L501.1400, L100.0100 #### [facility] [address] [place], [address] MCV (RBC) [Entitic vol] 91.2 fL Normal 80-94 [facility] Comment on above: Performed By: #### L 500.4050, L501.6710, L505.7010, L101.9900, L501.1400, L100.0100 #### [facility] [address] [place], [address] Monocytes/100 WBC (Bld) 10.0 % Normal 0-10 [facility] Comment on above: Performed By: #### L 500.4050, L501.6710, L505.7010, L101.9900, L501.1400, L100.0100 #### [facility] [address] [place], [address] Neutrophils/100 WBC (Bld) 64.1 % Normal 47-70 [facility] Comment on above: Performed By: #### L 500.4050, L501.6710, L505.7010, L101.9900, L501.1400, L100.0100 #### [facility] [address] [place], [address] Nucleated RBC (Bld) [#/Vol] 0 10*3/uL Normal 0-5 [facility] Comment on above: Performed By: #### L 500.4050, L501.6710, L505.7010, L101.9900, L501.1400, L100.0100 #### [facility] [address] [place], [address] Platelet mean volume (Bld) [Entitic vol] 10.0 fL Normal 6.2-12.0 [facility] Comment on above: Performed By: #### L 500.4050, L501.6710, L505.7010, L101.9900, L501.1400, L100.0100 #### [facility] [address] [place], [address] Platelets (Bld) [#/Vol] 248 10*3/uL Normal 150-450 [facility] Comment on above: Performed By: #### L 500.4050, L501.6710, L505.7010, L101.9900, L501.1400, L100.0100 #### [facility] [address] [place], [address] RBC (Bld) [#/Vol] 4.42 10*6/uL Low 4.6-6.2 [facility] Comment on above: Performed By: #### L 500.4050, L501.6710, L505.7010, L101.9900, L501.1400, L100.0100 #### [facility] [address] [place], [address] RDW SD 39.8 fl Normal 35.1-43.9 [facility] Comment on above: Performed By: #### L 500.4050, L501.6710, L505.7010, L101.9900, L501.1400, L100.0100 #### [facility] [address] [place], [address] WBC (Bld) [#/Vol] 9.7 10*3/uL Normal 4.4-11.0 [facility] Comment on above: Performed By: #### L 500.4050, L501.6710, L505.7010, L101.9900, L501.1400, L100.0100 #### [facility] [address] [place], [address] Carbon dioxide, total [Moles /volume] in Central venous bloodOrdered By: Marion Zaragoza on 10-26-2024 CO2 [Moles/Vol] 20.9 mmol/L Low 21.0-32.0 [facility] Chloride assayOrdered By: Kash Zaragoza on 10-26-2024 Chloride [Moles/Vol] 101 mmol/L 98-108 [facility] Metabolic Prof ilon 10-26-2024 Albumin [Mass/Vol] 4.5 g/dL Normal 3.5-5.0 [facility] Comment on above: Performed By: #### L 500.4050, L501.6710, L505.7010, L101.9900, L501.1400, L100.0100 #### [facility] [address] [place], [address] Albumin/Globulin [Mass ratio] 1.4 {ratio} Normal 0.9-2.4 [facility] Comment on above: Performed By: #### L 500.4050, L501.6710, L505.7010, L101.9900, L501.1400, L100.0100 #### [facility] [address] [place], [address] ALK PHOS 95 U/L Normal 40-129 [facility] Comment on above: Performed By: #### L 500.4050, L501.6710, L505.7010, L101.9900, L501.1400, L100.0100 #### [facility] [address] [place], [address] ALT [Catalytic activity/Vol] 32 U/L Normal <=46 [facility] Comment on above: Performed By: #### L 500.4050, L501.6710, L505.7010, L101.9900, L501.1400, L100.0100 #### [facility] [address] [place], [address] AST [Catalytic activity/Vol] 37 U/L Normal <=37 [facility] Comment on above: Performed By: #### L 500.4050, L501.6710, L505.7010, L101.9900, L501.1400, L100.0100 #### [facility] [address] [place], [address] Bilirubin [Mass/Vol] 0.77 mg/dL Normal 0.00-1.30 [facility] Comment on above: Performed By: #### L 500.4050, L501.6710, L505.7010, L101.9900, L501.1400, L100.0100 #### [facility] [address] [place], [address] BUN/CRE 11.3 RATIO Normal 10-20 [facility] Comment on above: Performed By: #### L 500.4050, L501.6710, L505.7010, L101.9900, L501.1400, L100.0100 #### [facility] [address] [place], [address] Calcium [Mass/Vol] 9.5 mg/dL Normal 7.6-11.0 [facility] Comment on above: Performed By: #### L 500.4050, L501.6710, L505.7010, L101.9900, L501.1400, L100.0100 #### [facility] [address] [place], [address] Chloride [Moles/Vol] 101 mmol/L Normal 98-108 [facility] Comment on above: Performed By: #### L 500.4050, L501.6710, L505.7010, L101.9900, L501.1400, L100.0100 #### [facility] [address] [place], [address] CO2 [Moles/Vol] 20.9 mmol/L Low 21.0-32.0 [facility] Comment on above: Performed By: #### L 500.4050, L501.6710, L505.7010, L101.9900, L501.1400, L100.0100 #### [facility] [address] [place], [address] Creatinine [Mass/Vol] 1.06 mg/dL Normal 0.70-1.20 [facility] Comment on above: Performed By: #### L 500.4050, L501.6710, L505.7010, L101.9900, L501.1400, L100.0100 #### [facility] [address] [place], [address] GAP 16 High 5-15 [facility] Comment on above: Performed By: #### L 500.4050, L501.6710, L505.7010, L101.9900, L501.1400, L100.0100 #### [facility] [address] [place], [address] GFR/1.73 sq M.predicted among non-blacks MDRD (S/P/Bld) [Vol rate/Area] 83 mL/min/{1.73_m2} Normal >60 [facility] Comment on above: Result Comment: mL/m in/1.73m2 CKD-EPI Creatinine Equation (2020) Performed By: #### L 500.4050, L501.6710, L505.7010, L101.9900, L501.1400, L100.0100 #### [facility] [address] [place], [address] Globulin (S) [Mass/Vol] 3.2 g/dL Normal 2.2-4.2 [facility] Comment on above: Performed By: #### L 500.4050, L501.6710, L505.7010, L101.9900, L501.1400, L100.0100 #### [facility] [address] [place], [address] Glucose [Mass/Vol] 115 mg/dL High 70-99 [facility] Comment on above: Performed By: #### L 500.4050, L501.6710, L505.7010, L101.9900, L501.1400, L100.0100 #### [facility] [address] [place], [address] Potassium [Moles/Vol] 3.6 mmol/L Normal 3.3-5.1 [facility] Comment on above: Performed By: #### L 500.4050, L501.6710, L505.7010, L101.9900, L501.1400, L100.0100 #### [facility] [address] [place], [address] Sodium [Moles/Vol] 138 mmol/L Normal 133-145 [facility] Comment on above: Performed By: #### L 500.4050, L501.6710, L505.7010, L101.9900, L501.1400, L100.0100 #### [facility] [address] [place], [place], [id number] T PROT 7.6 g/dL Normal 5.9-8.4 [facility] Comment on above: Performed By: #### L 500.4050, L501.6710, L505.7010, L101.9900, L501.1400, L100.0100 #### [facility] [address] [place], [place], [id number] (432) Urea nitrogen [Mass/Vol] 12 mg/dL Normal 4-19 [facility] Comment on above: Performed By: #### L 500.4050, L501.6710, L505.7010, L101.9900, L501.1400, L100.0100 #### [facility] [address] [place], [place], [id number] Eosinophil percentageOrdered By: Marion Zaragoza on 10-26-2024 Eosinophils/100 WBC (Bld) 3.3 % 0-5 [facility] Erythrocyte distribution wid th ratioOrdered By: Marion Zaragoza on 10-26-2024 Erythrocyte distribution width (RBC) [Ratio] 11.8 % 11.6-14.6 [facility] Erythrocyte distribution wid th standard deviationOrdered By: Marion Zaragoza on 10-26-2024 Erythrocyte distribution width (RBC) [Ratio] 39.8 fl 35.1-43.9 [facility] Glomerular filtration rate ( GFR) estimation/1.73 sq m using serum, plasma, or whole bOrdered By: Marion Zaragoza on 10-26-2024 GFR/1.73 sq M.predicted among non-blacks MDRD (S/P/Bld) [Vol rate/Area] 83 mL/min/{1.73_m2} >60 [facility] Comment on above: mL/min/1.73m2 CKD-EP I Creatinine Equation (2020) Hematocrit Auto (Bld) [Volum e fraction]Ordered By: Marion Zaragoza on 10-26-2024 Hematocrit (Bld) [Volume fraction] 40.3 % 40-54 [facility] Hemoglobin measurementOrdere d By: Marion Zaragoza on 10-26-2024 Hemoglobin (Bld) [Mass/Vol] 13.9 g/dL 13.0-16.5 [facility] Immature granulocytes/100 WB C Auto (Bld)Ordered By: Marion Zaragoza on 10-26-2024 Immature granulocytes/100 WBC (Bld) 0.200 % 0.0-0.9 [facility] Comment on above: IG% - Immature Granu locytes (promyelocytes, myelocytes and metamyelocytes) > 1% indicates that a LEFT SHIFT is Present. Laboratory - Chemistry and C hemistry - challengeOrdered By: Marion Zaragoza on 10-26-2024 AST [Catalytic activity/Vol] 37 U/L <38 [facility] MCV (mean corpuscular volume ) determinationOrdered By: Marion Zaragoza on 10-26-2024 MCV (RBC) [Entitic vol] 91.2 fL 80-94 [facility] Mean corpuscular hemoglobin (MCH) determinationOrdered By: Marion Zaragoza 10-26-2024 MCH (RBC) [Entitic mass] 31.4 pg 27.0-32.0 [facility] Mean corpuscular hemoglobin concentration (MCHC) determinationOrdered By: Marion Zaragoza 10-26-2024 MCHC (RBC) [Mass/Vol] 34.5 g/dL 32-36 [facility] Mean platelet volume determi nationOrdered By: Marion Zaragoza on 10-26-2024 Platelet mean volume (Bld) [Entitic vol] 10.0 fL 6.2-12.0 [facility] Monocyte percentageOrdered B y: Marion Zaragoza on 10-26-2024 Monocytes/100 WBC (Bld) 10.0 % 0-10 [facility] Neutrophil percentageOrdered By: Marion Zaragoza on 10-26-2024 Neutrophils/100 WBC (Bld) 64.1 % 47-70 [facility] Nucleated red blood cell per centageOrdered By: Marion Zaragoza on 10-26-2024 Nucleated RBC/100 WBC (Bld) [Ratio] 0 % 0-5 [facility] Platelet countOrdered By: Kash Zaragoza on 10-26-2024 Platelets (Bld) [#/Vol] 248 10*3/uL 150-450 [facility] Potassium measurement (mass/ volume)Ordered By: Marion Zaragoza on 10-26-2024 Potassium (Unsp spec) [Mass/Vol] 3.6 mmol/L 3.3-5.1 [facility] RBC Auto (Bld) [#/Vol]Ordere d By: Marion Zaragoza on 10-26-2024 RBC (Bld) [#/Vol] 4.42 10*6/uL Low 4.6-6.2 [facility] Serum creatinine measurement (mass/volume)Ordered By: Marion Zaragoza on 10-26-2024 Creatinine [Mass/Vol] 1.06 mg/dL 0.70-1.20 [facility] Serum globulin measurementOr dered By: Marion Zaragoza on 10-26-2024 Globulin (S) [Mass/Vol] 3.2 g/dL 2.2-4.2 [facility] Serum glucose measurement (m ass/volume)Ordered By: Marion Zaragoza on 10-26-2024 Glucose [Mass/Vol] 115 mg/dL High 70-99 [facility] Serum or plasma alanine haley otransferase (ALT) measurementOrdered By: Marion Zaragoza on 10-26-2024 ALT [Catalytic activity/Vol] 32 U/L <47 [facility] Serum or plasma albumin kiara urement (mass/volume)Ordered By: Marion Zaragoza on 10-26-2024 Albumin [Mass/Vol] 4.5 g/dL 3.5-5.0 [facility] Serum or plasma albumin/glob ulin mass ratioOrdered By: Marion Zaragoza on 10-26-2024 Albumin/Globulin [Mass ratio] 1.4 {ratio} 0.9-2.4 [facility] Serum or plasma alkaline claire sphatase measurementOrdered By: Marion Zaragoza on 10-26-2024 ALP [Catalytic activity/Vol] 95 U/L 40-129 [facility] Serum or plasma calcium kiara urement (mass/volume)Ordered By: Marion Zaragoza on 10-26-2024 Calcium [Mass/Vol] 9.5 mg/dL 7.6-11.0 [facility] Serum or plasma urea nitroge n measurement (mass/volume)Ordered By: Marion Zaragoza on 10-26-2024 Urea nitrogen [Mass/Vol] 12 mg/dL 4-19 [facility] Sodium levelOrdered By: Mario Zaragoza on 10-26-2024 Sodium [Moles/Vol] 138 mmol/L 133-145 [facility] Total proteinOrdered By: Fernanda Zaragoza on 10-26-2024 Protein [Mass/Vol] 7.6 g/dL 5.9-8.4 [facility] White blood cell (WBC) count Ordered By: Marion Zaragoza on 10-26-2024 WBC (Bld) [#/Vol] 9.7 10*3/uL 4.4-11.0 [facility] Quantiferon TB-Gold+on 08-19 QFT MITOGEN ESTER > 10.00 Normal . [facility] Comment on above: Performed By: #### L 3400.8000 #### [facility] [address] [place], [place], [id number] QFT NIL VALUE 0.04 IU/mL Normal . [facility] Comment on above: Performed By: #### L 3400.8000 #### [facility] [address] [place], [place], [id number] QFT TB GOLD+ Comment Normal . [facility] Comment on above: Result Comment: Corey tiFERON-TB Gold Plus is a qualitative indirect test for M tuberculosis infection (including disease) and is intended for use in conjunction with risk assessment, radiography, and other medical and diagnostic evaluations. The QuantiFERON-TB Gold Plus result is determined by subtracting the Nil value from either TB antigen (Ag) value. The Mitogen tube serves as a control for the test. Performed By: #### L 3400.8000 #### [facility] [address] [place], [address] QFT TB POS CRIT Negative Normal Negative [facility] Comment on above: Result Comment: No r esponse to M tuberculosis antigens detected. Infection with M tuberculosis is unlikely, but high risk individuals should be considered for additional testing (ATS/IDSA/CDC Clinical Practice Guidelines, 2017). The reference range is an Antigen minus Nil result of <0.35 IU/mL. The specimen received for QuantiFERON testing was incubated by the ordering institution. Specific procedures outlined in our Directory of Services and in the package insert for the QuantiFERON Gold (In Tube) test must be followed to enable for proper stimulation of cells for the production of interferon gamma. Chemiluminescence immunoassay methodology Performed at: [facility] [id number] Saw Man: Waylon Gil PhD, Phone: [phone] Performed By: #### L 3400.8000 #### [facility] [address] [place], [address] QFT TB1+ AG ESTER 0.03 IU/mL Normal . [facility] Comment on above: Performed By: #### L 3400.8000 #### [facility] [address] [place], [address] QFT TB2+ AG ESTER 0.03 IU/mL Normal . [facility] Comment on above: Performed By: #### L 3400.8000 #### [facility] [address] [place], [address] M. tuberculosis tuberculin s joselo IFN-g Ql (Bld)Ordered By: Marion Zaragoza on 08-16-2024 TB Test (QFT) Antigen 1 0.03 IU/mL . [facility] Qualitative QuantiFERON-TB g old in tube testOrdered By: Marion Zaragoza on 08-16-2024 M. tuberculosis tuberculin stim IFN-g Ql (Bld) 0.03 IU/mL . [facility] Quantiferon-TB Gold Plus renard tOrdered By: Marion Zaragoza on 08-16-2024 TB Test (QFT) Comment . [facility] Comment on above: QuantiFERON-TB Gold Plus is a qualitative indirect test forM tuberculosis infection (including disease) and isintended for use in conjunction with risk assessment,radiography, and other medical and diagnostic evaluations.The QuantiFERON-TB Gold Plus result is determined bysubtracting the Nil value from either TB antigen (Ag)value. The Mitogen tube serves as a control for the test. TB Test (QFT) Antigen 2 0.03 IU/mL . [facility] TB Test (QFT) Mitogen > 10.00 IU/mL . [facility] TB Test (QFT) Nil 0.04 IU/mL . [facility] TB Test (QFT) Positive Criteria Negative Negative [facility] Comment on above: No response to M tub erculosis antigens detected.Infection with M tuberculosis is unlikely, but high riskindividuals should be considered for additional testing(ATS/IDSA/CDC Clinical Practice Guidelines, 2017). Thereference range is an Antigen minus Nil result of <0.35IU/mL.The specimen received for QuantiFERON testing was incubatedby the ordering institution. Specific procedures outlinedin our Directory of Services and in the package insert forthe QuantiFERON Gold (In Tube) test must be followed toenable for proper stimulation of cells for the productionof interferon gamma. Chemiluminescence immunoassaymethodologyPerformed at: [place] [address] [id number] Director: Waylon Gil PhD, Phone: [phone] Absolute lymphocyte countOrd ered By: Jovanny Gillette on 07-15-2024 Lymphocytes Auto (Unsp spec) [#/Vol] 2.96 10*3/uL 0.83-4.51 [facility] Absolute neutrophil countOrd ered By: Jovanny Gillette on 07-15-2024 Neutrophils (Bld) [#/Vol] 6.2 10*3/uL 2.0-7.7 [facility] Anion gap in Serum or Plasma Ordered By: Jovanny Gillette on 07-15-2024 Anion gap [Moles/Vol] 14 mmol/L 5-15 [facility] Automated lymphocyte count a s percentage of total leukocytesOrdered By: Jovanny Gillette on 07-15-2024 Lymphocytes/100 WBC Auto (Unsp spec) 27.4 % 19-41 [facility] BUN/creatinine ratioOrdered By: Jovanny Gillette on 07-15-2024 Urea nitrogen/Creatinine [Mass ratio] 15.6 mg/mg 10- [facility] Basophil percentageOrdered B y: Jovanny Gillette on 07-15-2024 Basophils/100 WBC (Bld) 0.6 % 0-1 [facility] Bilirubin, totalOrdered By: Jovanny Gillette on 07-15-2024 Bilirubin [Mass/Vol] 0.72 mg/dL 0.00-1.30 [facility] CBC W/Diff, Automatedon Absolute Lymph 2.96 X10 3/uL Normal 0.83-4.51 [facility] Comment on above: Order Comment: Order Date: 06/21/24 Order Info: 0184- - CBCD Order Info: [id number] - SED Performed By: #### L 500.4050, L501.6710, L505.7010, L101.9900, L501.1400, L100.0100 #### [facility] [address] [place], [place], [id number] Absolute Neut 6.2 X10 3/uL Normal 2.0-7.7 [facility] Comment on above: Order Comment: Order Date: 06/21/24 Order Info: 0184- - CBCD Order Info: [id number] - SED Performed By: #### L 500.4050, L501.6710, L505.7010, L101.9900, L501.1400, L100.0100 #### [facility] [address] [place], [address] Basophils/100 WBC (Bld) 0.6 % Normal 0-1 [facility] Comment on above: Order Comment: Order Date: 06/21/24 Order Info: 0184- - CBCD Order Info: [id number] - SED Performed By: #### L 500.4050, L501.6710, L505.7010, L101.9900, L501.1400, L100.0100 #### [facility] [address] [place], [address] Eosinophils/100 WBC (Bld) 4.5 % Normal 0-5 [facility] Comment on above: Order Comment: Order Date: 06/21/24 Order Info: 018- - CBCD Order Info: - SED Performed By: #### L 500.4050, L501.6710, L505.7010, L101.9900, L501.1400, L100.0100 #### [facility] [address] [place], [address] Erythrocyte distribution width (RBC) [Ratio] 12.0 % Normal 11.6-14.6 [facility] Comment on above: Order Comment: Order Date: 06/21/24 Order Info: [id number] - CBCD Order Info: - SED Performed By: #### L 500.4050, L501.6710, L505.7010, L101.9900, L501.1400, L100.0100 #### [facility] [address] [place], [address] Hematocrit (Bld) [Volume fraction] 44.4 % Normal 40-54 [facility] Comment on above: Order Comment: Order Date: 06/21/24 Order Info: 0184- - CBCD Order Info: - SED Performed By: #### L 500.4050, L501.6710, L505.7010, L101.9900, L501.1400, L100.0100 #### [facility] [address] [place], [address] Hemoglobin (Bld) [Mass/Vol] 14.9 g/dL Normal 13.0-16.5 [facility] Comment on above: Order Comment: Order Date: 06/21/24 Order Info: 0184- - CBCD Order Info: - SED Performed By: #### L 500.4050, L501.6710, L505.7010, L101.9900, L501.1400, L100.0100 #### [facility] [address] [place], [address] IG% 0.500 Normal 0.0-0.9 [facility] Comment on above: Order Comment: Order Date: 06/21/24 Order Info: 183-05 - CBCD Order Info: [id number] - SED Result Comment: IG% - Immature Granulocytes (promyelocytes, myelocytes and metamyelocytes) > 1% indicates that a LEFT SHIFT is Present. Performed By: #### L 500.4050, L501.6710, L505.7010, L101.9900, L501.1400, L100.0100 #### [facility] [address] [place], [address] Lymphocytes/100 WBC (Bld) 27.4 % Normal 19-41 [facility] Comment on above: Order Comment: Order Date: 06/21/24 Order Info: 183-05 - CBCD Order Info: - SED Performed By: #### L 500.4050, L501.6710, L505.7010, L101.9900, L501.1400, L100.0100 #### [facility] [address] [place], [address] MCH (RBC) [Entitic mass] 30.7 pg Normal 27.0-32.0 [facility] Comment on above: Order Comment: Order Date: 06/21/24 Order Info: 183-05 - CBCD Order Info: 11819-6 - SED Performed By: #### L 500.4050, L501.6710, L505.7010, L101.9900, L501.1400, L100.0100 #### [facility] [address] [place], [address] MCHC (RBC) [Mass/Vol] 33.6 g/dL Normal 32-36 [facility] Comment on above: Order Comment: Order Date: 06/21/24 Order Info: 183-05 - CBCD Order Info: 73292-3 - SED Performed By: #### L 500.4050, L501.6710, L505.7010, L101.9900, L501.1400, L100.0100 #### [facility] [address] [place], [address] MCV (RBC) [Entitic vol] 91.4 fL Normal 80-94 [facility] Comment on above: Order Comment: Order Date: 06/21/24 Order Info: 0184- - CBCD Order Info: [id number] - SED Performed By: #### L 500.4050, L501.6710, L505.7010, L101.9900, L501.1400, L100.0100 #### [facility] [address] [place], [address] Monocytes/100 WBC (Bld) 9.5 % Normal 0-10 [facility] Comment on above: Order Comment: Order Date: 06/21/24 Order Info: 0184- - CBCD Order Info: [id number] - SED Performed By: #### L 500.4050, L501.6710, L505.7010, L101.9900, L501.1400, L100.0100 #### [facility] [address] [place], [address] Neutrophils/100 WBC (Bld) 57.5 % Normal 47-70 [facility] Comment on above: Order Comment: Order Date: 06/21/24 Order Info: 0184-1 - CBCD Order Info: [id number] - SED Performed By: #### L 500.4050, L501.6710, L505.7010, L101.9900, L501.1400, L100.0100 #### [facility] [address] [place], [address] Nucleated RBC (Bld) [#/Vol] 0 10*3/uL Normal 0-5 [facility] Comment on above: Order Comment: Order Date: 06/21/24 Order Info: 183-05 - CBCD Order Info: - SED Performed By: #### L 500.4050, L501.6710, L505.7010, L101.9900, L501.1400, L100.0100 #### [facility] [address] [place], [address] Platelet mean volume (Bld) [Entitic vol] 9.7 fL Normal 6.2-12.0 [facility] Comment on above: Order Comment: Order Date: 06/21/24 Order Info: 183-05 - CBCD Order Info: - SED Performed By: #### L 500.4050, L501.6710, L505.7010, L101.9900, L501.1400, L100.0100 #### [facility] [address] [place], [address] Platelets (Bld) [#/Vol] 267 10*3/uL Normal 150-450 [facility] Comment on above: Order Comment: Order Date: 06/21/24 Order Info: 183-05 - CBCD Order Info: - SED Performed By: #### L 500.4050, L501.6710, L505.7010, L101.9900, L501.1400, L100.0100 #### [facility] [address] [place], [address] RBC (Bld) [#/Vol] 4.86 10*6/uL Normal 4.6-6.2 [facility] Comment on above: Order Comment: Order Date: 06/21/24 Order Info: [id number] - CBCD Order Info: - SED Performed By: #### L 500.4050, L501.6710, L505.7010, L101.9900, L501.1400, L100.0100 #### [facility] [address] [place], [address] RDW SD 40.1 fl Normal 35.1-43.9 [facility] Comment on above: Order Comment: Order Date: 06/21/24 Order Info: 0184-1 - CBCD Order Info: [id number] - SED Performed By: #### L 500.4050, L501.6710, L505.7010, L101.9900, L501.1400, L100.0100 #### [facility] [address] [place], [address] WBC (Bld) [#/Vol] 10.8 10*3/uL Normal 4.4-11.0 [facility] Comment on above: Order Comment: Order Date: 06/21/24 Order Info: 0184-1 - CBCD Order Info: 22322-1 - SED Performed By: #### L 500.4050, L501.6710, L505.7010, L101.9900, L501.1400, L100.0100 #### [facility] [address] [place], [address] CRPon 07-15-2024 C-REACTIVE PROT < 3.00 Normal 0.0-3.0 [facility] Comment on above: Order Comment: Order Date: 06/21/24 Order Info: 0786-1 - CMP Order Info: 3084-1 - URIC Order Info: [id number] - CRP Order Info: [id number] - RA Performed By: #### L 500.4050, L501.6710, L505.7010, L101.9900, L501.1400, L100.0100 #### [facility] [address] [place], [address] CRP [Mass/Vol]Ordered By: Saúl Gillette on 07-15-2024 C-Reactive Protein Extended Range < 3.00 mg/L 0.0-3.0 [facility] Carbon dioxide, total [Moles /volume] in Central venous bloodOrdered By: Jovanny Gillette on 07-15-2024 CO2 [Moles/Vol] 21.2 mmol/L 21.0-32.0 [facility] Chloride assayOrdered By: Saúl Gillette on 07-15-2024 Chloride [Moles/Vol] 101 mmol/L 98-108 [facility] Comprehensive Metabolic Prof ilon 07-15-2024 Albumin [Mass/Vol] 4.2 g/dL Normal 3.5-5.0 [facility] Comment on above: Order Comment: Order Date: 06/21/24 Order Info: 86-1 - CMP Order Info: 3084-1 - URIC Order Info: 62563-1 - CRP Order Info: 63732-4 - RA Performed By: #### L 500.4050, L501.6710, L505.7010, L101.9900, L501.1400, L100.0100 #### [facility] [address] [place], [address] Albumin/Globulin [Mass ratio] 1.2 {ratio} Normal 0.9-2.4 [facility] Comment on above: Order Comment: Order Date: 06/21/24 Order Info: 86-1 - CMP Order Info: 4-1 - URIC Order Info: 10131-9 - CRP Order Info: [id number] - RA Performed By: #### L 500.4050, L501.6710, L505.7010, L101.9900, L501.1400, L100.0100 #### [facility] [address] [place], [address] ALK PHOS 38 U/L Low 40-129 [facility] Comment on above: Order Comment: Order Date: 06/21/24 Order Info: 0786-1 - CMP Order Info: 3084-1 - URIC Order Info: [id number] - CRP Order Info: [id number] - RA Performed By: #### L 500.4050, L501.6710, L505.7010, L101.9900, L501.1400, L100.0100 #### [facility] [address] [place], [address] ALT [Catalytic activity/Vol] 42 U/L Normal <=46 [facility] Comment on above: Order Comment: Order Date: 06/21/24 Order Info: 86-1 - CMP Order Info: 3083-05 - URIC Order Info: [id number] - CRP Order Info: [id number] - RA Performed By: #### L 500.4050, L501.6710, L505.7010, L101.9900, L501.1400, L100.0100 #### [facility] [address] [place], [address] AST [Catalytic activity/Vol] 32 U/L Normal <=37 [facility] Comment on above: Order Comment: Order Date: 06/21/24 Order Info: 86-1 - CMP Order Info: 3083-05 - URIC Order Info: [id number] - CRP Order Info: [id number] - RA Performed By: #### L 500.4050, L501.6710, L505.7010, L101.9900, L501.1400, L100.0100 #### [facility] [address] [place], [address] Bilirubin [Mass/Vol] 0.72 mg/dL Normal 0.00-1.30 [facility] Comment on above: Order Comment: Order Date: 06/21/24 Order Info: 86-1 - CMP Order Info: 3083-05 - URIC Order Info: [id number] - CRP Order Info: [id number] - RA Performed By: #### L 500.4050, L501.6710, L505.7010, L101.9900, L501.1400, L100.0100 #### [facility] [address] [place], [address] BUN/CRE 15.6 RATIO Normal 10-20 [facility] Comment on above: Order Comment: Order Date: 06/21/24 Order Info: 86-1 - CMP Order Info: 3083-05 - URIC Order Info: [id number] - CRP Order Info: [id number] - RA Performed By: #### L 500.4050, L501.6710, L505.7010, L101.9900, L501.1400, L100.0100 #### [facility] [address] [place], [address] Calcium [Mass/Vol] 9.3 mg/dL Normal 7.6-11.0 [facility] Comment on above: Order Comment: Order Date: 06/21/24 Order Info: 86-1 - CMP Order Info: 3083-1 - URIC Order Info: [id number] - CRP Order Info: [id number] - RA Performed By: #### L 500.4050, L501.6710, L505.7010, L101.9900, L501.1400, L100.0100 #### [facility] [address] [place], [address] Chloride [Moles/Vol] 101 mmol/L Normal 98-108 [facility] Comment on above: Order Comment: Order Date: 06/21/24 Order Info: 785-1 - CMP Order Info: 1 - URIC Order Info: 00184-1 - CRP Order Info: [id number] - RA Performed By: #### L 500.4050, L501.6710, L505.7010, L101.9900, L501.1400, L100.0100 #### [facility] [address] [place], [address] CO2 [Moles/Vol] 21.2 mmol/L Normal 21.0-32.0 [facility] Comment on above: Order Comment: Order Date: 06/21/24 Order Info: 86-1 - CMP Order Info: 3084-1 - URIC Order Info: [id number] - CRP Order Info: [id number] - RA Performed By: #### L 500.4050, L501.6710, L505.7010, L101.9900, L501.1400, L100.0100 #### [facility] [address] [place], [address] Creatinine [Mass/Vol] 0.79 mg/dL Normal 0.70-1.20 [facility] Comment on above: Order Comment: Order Date: 06/21/24 Order Info: 785- - CMP Order Info: 1 - URIC Order Info: [id number] - CRP Order Info: [id number] - RA Performed By: #### L 500.4050, L501.6710, L505.7010, L101.9900, L501.1400, L100.0100 #### [facility] [address] [place], [place], [id number] GAP 14 Normal 5-15 [facility] Comment on above: Order Comment: Order Date: 06/21/24 Order Info: 785- - CMP Order Info: 3083-05 - URIC Order Info: [id number] - CRP Order Info: [id number] - RA Performed By: #### L 500.4050, L501.6710, L505.7010, L101.9900, L501.1400, L100.0100 #### [facility] [address] [place], [place], [id number] [phone] GFR/1.73 sq M.predicted among non-blacks MDRD (S/P/Bld) [Vol rate/Area] 106 mL/min/{1.73_m2} Normal >60 [facility] Comment on above: Order Comment: Order Date: 06/21/24 Order Info: 785-05 - CMP Order Info: 3083-05 - URIC Order Info: 17081-1 - CRP Order Info: [id number] - RA Result Comment: mL/m in/1.73m2 CKD-EPI Creatinine Equation (2020) Performed By: #### L 500.4050, L501.6710, L505.7010, L101.9900, L501.1400, L100.0100 #### [facility] [address] [place], [place], [address] Globulin (S) [Mass/Vol] 3.5 g/dL Normal 2.2-4.2 [facility] Comment on above: Order Comment: Order Date: 06/21/24 Order Info: 86-1 - CMP Order Info: 3083-05 - URIC Order Info: [id number] - CRP Order Info: [id number] - RA Performed By: #### L 500.4050, L501.6710, L505.7010, L101.9900, L501.1400, L100.0100 #### [facility] [address] [place], [address] Glucose [Mass/Vol] 88 mg/dL Normal 70-99 [facility] Comment on above: Order Comment: Order Date: 06/21/24 Order Info: 785- - CMP Order Info: 3083-05 - URIC Order Info: [id number] - CRP Order Info: [id number] - RA Performed By: #### L 500.4050, L501.6710, L505.7010, L101.9900, L501.1400, L100.0100 #### [facility] [address] [place], [address] Potassium [Moles/Vol] 4.0 mmol/L Normal 3.3-5.1 [facility] Comment on above: Order Comment: Order Date: 06/21/24 Order Info: 785- - CMP Order Info: 3083-05 - URIC Order Info: [id number] - CRP Order Info: [id number] - RA Performed By: #### L 500.4050, L501.6710, L505.7010, L101.9900, L501.1400, L100.0100 #### [facility] [address] [place], [address] Sodium [Moles/Vol] 137 mmol/L Normal 133-145 [facility] Comment on above: Order Comment: Order Date: 06/21/24 Order Info: 86-1 - CMP Order Info: 3083-05 - URIC Order Info: [id number] - CRP Order Info: [id number] - RA Performed By: #### L 500.4050, L501.6710, L505.7010, L101.9900, L501.1400, L100.0100 #### [facility] [address] [place], [address] T PROT 7.7 g/dL Normal 5.9-8.4 [facility] Comment on above: Order Comment: Order Date: 06/21/24 Order Info: 07-1 - CMP Order Info: 1 - URIC Order Info: [id number] - CRP Order Info: [id number] - RA Performed By: #### L 500.4050, L501.6710, L505.7010, L101.9900, L501.1400, L100.0100 #### [facility] [address] [place], [address] Urea nitrogen [Mass/Vol] 12 mg/dL Normal 4-19 [facility] Comment on above: Order Comment: Order Date: 06/21/24 Order Info: 785- - CMP Order Info: 3083-05 - URIC Order Info: [id number] - CRP Order Info: [id number] - RA Performed By: #### L 500.4050, L501.6710, L505.7010, L101.9900, L501.1400, L100.0100 #### [facility] [address] [place], [address] Eosinophil percentageOrdered By: Jovanny Gillette on 07-15-2024 Eosinophils/100 WBC (Bld) 4.5 % 0-5 [facility] Erythrocyte Sed Rateon 07-15 SED RATE 22 mm/hr High 0-20 [facility] Comment on above: Order Comment: Order Date: 06/21/24 Order Info: 0184-1 - CBCD Order Info: [id number] - SED Performed By: #### L 500.4050, L501.6710, L505.7010, L101.9900, L501.1400, L100.0100 #### [facility] [address] [place], [place], [id number] [phone] Erythrocyte distribution wid th ratioOrdered By: Jovanny Gillette on 07-15-2024 Erythrocyte distribution width (RBC) [Ratio] 12.0 % 11.6-14.6 [facility] Erythrocyte distribution wid th standard deviationOrdered By: Jovanny Gillette on 07-15-2024 Erythrocyte distribution width (RBC) [Entitic vol] 40.1 fL 35.1-43.9 [facility] Erythrocyte distribution width (RBC) [Ratio] 40.1 fl 35.1-43.9 [facility] Erythrocyte sedimentation ra teOrdered By: Jovanny Gillette on 07-15-2024 ESR (Bld) [Velocity] 22 mm/h High 0-20 [facility] GFR/1.73 sq M.predicted roberta g non-blacks MDRD (S/P/Bld) [Vol rate/Area]Ordered By: Jovanny Gillette on 07-15-2024 Estimated GFR (MDRD) Non-Af Amer 106 >60 [facility] Comment on above: mL/min/1.73m2 CKD-EP I Creatinine Equation (2020) Glomerular filtration rate ( GFR) estimation/1.73 sq m using serum, plasma, or whole bOrdered By: Jovanny Gillette on 07-15-2024 GFR/1.73 sq M.predicted among non-blacks MDRD (S/P/Bld) [Vol rate/Area] 106 mL/min/{1.73_m2} >60 [facility] Comment on above: mL/min/1.73m2 CKD-EP I Creatinine Equation (2020) Hematocrit Auto (Bld) [Volum e fraction]Ordered By: Jovanny Gillette on 07-15-2024 Hematocrit (Bld) [Volume fraction] 44.4 % 40-54 [facility] Hemoglobin measurementOrdere d By: Jovanny Gillette on 07-15-2024 Hemoglobin (Bld) [Mass/Vol] 14.9 g/dL 13.0-16.5 [facility] Immature granulocytes/100 WB C Auto (Bld)Ordered By: Jovanny Gillette on 07-15-2024 Immature granulocytes/100 WBC (Bld) 0.500 % 0.0-0.9 [facility] Comment on above: IG% - Immature Granu locytes (promyelocytes, myelocytes and metamyelocytes) > 1% indicates that a LEFT SHIFT is Present. Laboratory - Chemistry and C hemistry - challengeOrdered By: Jovanny Gillette on 07-15-2024 AST [Catalytic activity/Vol] 32 U/L <38 [facility] Lymphocytes Auto (Unsp spec) [#/Vol]Ordered By: Jovanny Gillette on 07-15-2024 Lymphocytes (Bld) [#/Vol] 2.96 10*3/uL 0.83-4.51 [facility] Lymphocytes/100 WBC Auto (Un sp spec)Ordered By: Jovanny Gillette on 07-15-2024 Lymphocytes/100 WBC (Bld) 27.4 % 19-41 [facility] MCV (mean corpuscular volume ) determinationOrdered By: Jovanny Gillette on 07-15-2024 MCV (RBC) [Entitic vol] 91.4 fL 80-94 [facility] Mean corpuscular hemoglobin (MCH) determinationOrdered By: Jovanny Gillette on 07-15-2024 MCH (RBC) [Entitic mass] 30.7 pg 27.0-32.0 [facility] Mean corpuscular hemoglobin concentration (MCHC) determinationOrdered By: Jovanny Gillette on 07-15-2024 MCHC (RBC) [Mass/Vol] 33.6 g/dL 32-36 [facility] Mean platelet volume determi nationOrdered By: Jovanny Gillette on 07-15-2024 Platelet mean volume (Bld) [Entitic vol] 9.7 fL 6.2-12.0 [facility] Monocyte percentageOrdered B y: Jovanny Gillette on 07-15-2024 Monocytes/100 WBC (Bld) 9.5 % 0-10 [facility] Neutrophil percentageOrdered By: Jovanny Gillette on 07-15-2024 Neutrophils/100 WBC (Bld) 57.5 % 47-70 [facility] Nucleated red blood cell per centageOrdered By: Jovanny Gillette on 07-15-2024 Nucleated RBC/100 WBC (Bld) [Ratio] 0 % 0-5 [facility] Platelet countOrdered By: Saúl Gillette on 07-15-2024 Platelets (Bld) [#/Vol] 267 10*3/uL 150-450 [facility] Potassium (Unsp spec) [Mass/ Vol]Ordered By: Jovanny Gillette on 07-15-2024 Potassium [Moles/Vol] 4.0 mmol/L 3.3-5.1 [facility] Potassium measurement (mass/ volume)Ordered By: Jovanny Gillette on 07-15-2024 Potassium (Unsp spec) [Mass/Vol] 4.0 mmol/L 3.3-5.1 [facility] RBC Auto (Bld) [#/Vol]Ordere d By: Jovanny Gillette on 07-15-2024 RBC (Bld) [#/Vol] 4.86 10*6/uL 4.6-6.2 [facility] Rheumatoid Factoron 07-16-19 25 RHEUMATOID FAC < 10.0 Normal <15 [facility] Comment on above: Order Comment: Order Date: 06/21/24 Order Info: [id number] - CMP Order Info: [id number] - URIC Order Info: [id number] - CRP Order Info: [id number] - RA Performed By: #### L 500.4050, L501.6710, L505.7010, L101.9900, L501.1400, L100.0100 #### [facility] [address] [place], [place], [id number] Rheumatoid factor Ql (S)Orde red By: Jovanny Gillette on 07-15-2024 Rheumatoid Factor < 10.0 IU/mL <15 [facility] Serum creatinine measurement (mass/volume)Ordered By: Jovanny Gillette on 07-15-2024 Creatinine [Mass/Vol] 0.79 mg/dL 0.70-1.20 [facility] Serum globulin measurementOr dered By: Jovanny Gillette on 07-15-2024 Globulin (S) [Mass/Vol] 3.5 g/dL 2.2-4.2 [facility] Serum glucose measurement (m ass/volume)Ordered By: Jovanny Glilette on 07-15-2024 Glucose [Mass/Vol] 88 mg/dL 70-99 [facility] Serum or plasma C reactive p rotein measurement (mass/volume)Ordered By: Jovanny Gillette on 07-15-2024 CRP [Mass/Vol] mg/L 0.0-3.0 [facility] Serum or plasma alanine haley otransferase (ALT) measurementOrdered By: Jovanny Gillette on 07-15-2024 ALT [Catalytic activity/Vol] 42 U/L <47 [facility] Serum or plasma albumin kiara urement (mass/volume)Ordered By: Jovanny Gillette on 07-15-2024 Albumin [Mass/Vol] 4.2 g/dL 3.5-5.0 [facility] Serum or plasma albumin/glob ulin mass ratioOrdered By: Jovanny Gillette on 07-15-2024 Albumin/Globulin [Mass ratio] 1.2 {ratio} 0.9-2.4 [facility] Serum or plasma alkaline claire sphatase measurementOrdered By: Jovanny Gillette on 07-15-2024 ALP [Catalytic activity/Vol] 38 U/L Low 40-129 [facility] Serum or plasma calcium kiara urement (mass/volume)Ordered By: Jovanny Gillette on 07-15-2024 Calcium [Mass/Vol] 9.3 mg/dL 7.6-11.0 [facility] Serum or plasma urea nitroge n measurement (mass/volume)Ordered By: Jovanny Gillette on 07-15-2024 Urea nitrogen [Mass/Vol] 12 mg/dL 4-19 [facility] Serum or plasma uric acid me asurement (mass/volume)Ordered By: Jovanny Gillette on 07-15-2024 Urate [Mass/Vol] 5.1 mg/dL 3.5-7.2 [facility] Comment on above: The drugs N-Acetylcy steine and Metamizole may falsely depress this assay. Serum rheumatoid factor dete ctionOrdered By: Jovanny Gillette on 07-15-2024 Rheumatoid factor Ql (S) < 10.0 IU/mL <15 [facility] Sodium levelOrdered By: Jovanny Gillette on 07-15-2024 Sodium [Moles/Vol] 137 mmol/L 133-145 [facility] Total proteinOrdered By: Lexie Gillette on 07-15-2024 Protein [Mass/Vol] 7.7 g/dL 5.9-8.4 [facility] Uric Acidon 07-15-2024 URIC 5.1 mg/dL Normal 3.5-7.2 [facility] Comment on above: Order Comment: Order Date: 06/21/24 Order Info: [id number] - CMP Order Info: [id number] - URIC Order Info: [id number] - CRP Order Info: [id number] - RA Result Comment: The drugs N-Acetylcysteine and Metamizole may falsely depress this assay. Performed By: #### L 500.4050, L501.6710, L505.7010, L101.9900, L501.1400, L100.0100 #### [facility] [address] [place], [address] White blood cell (WBC) count Ordered By: Jovanny Gillette on 07-15-2024 WBC (Bld) [#/Vol] 10.8 10*3/uL 4.4-11.0 [facility] Absolute lymphocyte countOrd ered By: Marion Zaragoza on 12-09-2022 Lymphocytes Auto (Unsp spec) [#/Vol] 2.52 10*3/uL 0.83-4.51 [facility] Basophil percentageOrdered B y: Marion Zaragoza on 12-09-2022 Basophils/100 WBC (Bld) 0.7 % 0-1 [facility] Bilirubin [Mass/Vol] 0.50 mg/dL 0.20-1.00 [facility] Comment on above: For patients on eltr ombopag therapy, use of Dimension [place] TBIL is not recommended. Chloride [Moles/Vol] 107 mmol/L 98-107 [facility] Eosinophils/100 WBC (Bld) 2.0 % 0-5 [facility] Glucose [Mass/Vol] 102 mg/dL 74-106 [facility] Comment on above: Fasting Glucose resu lt from 100 to 125 mg/dL suggests IMPAIRED HOMEOSTASIS per A.D.A. criteria. Neutrophils (Bld) [#/Vol] 7.3 10*3/uL 2.0-7.7 [facility] Neutrophils/100 WBC (Bld) 64.1 % 47-70 [facility] Potassium [Moles/Vol] 4.2 mmol/L 3.5-5.1 [facility] Protein [Mass/Vol] 7.4 g/dL 6.4-8.2 [facility] Sodium [Moles/Vol] 139 mmol/L 136-145 [facility] WBC (Bld) [#/Vol] 11.4 10*3/uL 4.4-11.0 [facility] Blood erythrocytes count (nu mber/volume)Ordered By: Marion Zaragoza on 12-09-2022 RBC (Bld) [#/Vol] 4.79 10*6/uL 4.6-6.2 [facility] Blood hemoglobin measurement (mass/volume)Ordered By: Marion Zaragoza on 12-09-2022 Hemoglobin (Bld) [Mass/Vol] 14.6 g/dL 13.0-16.5 [facility] Blood lymphocytes/100 leukoc ytesOrdered By: Marion Zaragoza on 12-09-2022 Lymphocytes/100 WBC (Bld) 22.2 % 19-41 [facility] Blood monocytes/100 leukocyt esOrdered By: Marion Zaragoza on 12-09-2022 Monocytes/100 WBC (Bld) 10.7 % 0-10 [facility] Blood platelet mean volumeOr dered By: Marion Zaragoza on 12-09-2022 Platelet mean volume (Bld) [Entitic vol] 9.5 fL 6.2-12.0 [facility] Determination of erythrocyte mean corpuscular volume (MCV)Ordered By: Marion Zaragoza on 12-09-2022 MCV (RBC) [Entitic vol] 92.3 fL 80-94 [facility] Hematocrit Auto (Bld) [Volum e fraction]Ordered By: Marion Zaragoza on 12-09-2022 Hematocrit (Bld) [Volume fraction] 44.2 % 40-54 [facility] - Chemistry and C hemistry - challengeOrdered By: Marion Zaragoza on 12-09-2022 ALP [Catalytic activity/Vol] 71 U/L 45-117 [facility] ALT [Catalytic activity/Vol] 63 U/L 16-61 [facility] CO2 [Moles/Vol] 26.0 mmol/L 21.0-32.0 [facility] Globulin (S) [Mass/Vol] 3.9 g/dL 2.2-4.2 [facility] Urea nitrogen/Creatinine [Mass ratio] 17.4 mg/mg 10-20 [facility] - Hematology and Cell countsOrdered By: Marion Zaragoza on 12-09-2022 Erythrocyte distribution width (RBC) [Entitic vol] 42.2 fL 35.1-43.9 [facility] Erythrocyte distribution width (RBC) [Ratio] 12.3 % 11.6-14.6 [facility] Immature granulocytes/100 WBC (Bld) 0.300 % 0.0-0.9 [facility] Comment on above: IG% - Immature Granu locytes (promyelocytes, myelocytes and metamyelocytes) > 1% indicates that a LEFT SHIFT is Present. MCH (RBC) [Entitic mass] 30.5 pg 27.0-32.0 [facility] Nucleated RBC/100 WBC (Bld) [Ratio] 0 % 0-5 [facility] MCHC Auto (RBC) [Mass/Vol]Or dered By: Marion Zaragoza on 12-09-2022 MCHC (RBC) [Mass/Vol] 33.0 g/dL 32-36 [facility] No Panel InformationOrdered By: Marion Zaragoza on 12-09-2022 Estimated GFR (MDRD) Amer 103 mL/min >60 [facility] Comment on above: GFR Calc Estimated GFR (MDRD) Non-Af Amer 85 mL/min >60 [facility] Comment on above: Non- GFR Calc Platelets bldOrdered By: Fernanda Zaragoza on 12-09-2022 Platelets (Bld) [#/Vol] 236 10*3/uL 150-450 [facility] Serum or plasma albumin kiara urement (mass/volume)Ordered By: Marion Zaragoza on 12-09-2022 Albumin [Mass/Vol] 3.5 g/dL 3.2-5.0 [facility] Serum or plasma albumin/glob ulin mass ratioOrdered By: Marion Zaragoza on 12-09-2022 Albumin/Globulin [Mass ratio] 0.9 {ratio} 0.9-2.4 [facility] Serum or plasma calcium kiara urement (mass/volume)Ordered By: Marion Zaragoza on 12-09-2022 Calcium [Mass/Vol] 9.4 mg/dL 8.5-10.1 [facility] Serum or plasma creatinine m easurement (mass/volume)Ordered By: Marion Zaragoza on 12-09-2022 Creatinine [Mass/Vol] 0.98 mg/dL 0.70-1.30 [facility] Comment on above: The validity of the calculated GFR & GFRAA in patients over 70 years has not been determined. Clinical correlation is essential. Serum or plasma urea nitroge n measurement (mass/volume)Ordered By: Marion Zaragoza on 12-09-2022 Urea nitrogen [Mass/Vol] 17 mg/dL 7-18 [facility] Thin prep Papanicolaou smear with manual screeningOrdered By: Marion Zaragoza on 12-09-2022 Thin prep Papanicolaou smear with manual screening 40 U/L 15-37 [facility] Thin prep Papanicolaou smear with manual screening 6 5-15 [facility] Absolute lymphocyte countOrd ered By: Dr. Zaragoza on 06-13-2022 Lymphocytes Auto (Unsp spec) [#/Vol] 3.05 10*3/uL 0.83-4.51 [facility] Basophil percentageOrdered B y: Dr. Zaragoza on 06-13-2022 Basophils/100 WBC (Bld) 0.6 % 0-1 [facility] Bilirubin [Mass/Vol] 0.50 mg/dL 0.20-1.00 [facility] Comment on above: For patients on eltr ombopag therapy, use of Dimension [place] TBIL is not recommended. Chloride [Moles/Vol] 105 mmol/L 98-107 [facility] Eosinophils/100 WBC (Bld) 4.4 % 0-5 [facility] Glucose [Mass/Vol] 97 mg/dL 74-106 [facility] Neutrophils (Bld) [#/Vol] 4.4 10*3/uL 2.0-7.7 [facility] Neutrophils/100 WBC (Bld) 50.4 % 47-70 [facility] Potassium [Moles/Vol] 4.3 mmol/L 3.5-5.1 [facility] Protein [Mass/Vol] 7.9 g/dL 6.4-8.2 [facility] Sodium [Moles/Vol] 141 mmol/L 136-145 [facility] WBC (Bld) [#/Vol] 8.6 10*3/uL 4.4-11.0 [facility] Blood erythrocytes count (nu mber/volume)Ordered By: Dr. Zaragoza on 06-13-2022 RBC (Bld) [#/Vol] 4.82 10*6/uL 4.6-6.2 [facility] Blood hemoglobin measurement (mass/volume)Ordered By: Dr. Zaragoza on 06-13-2022 Hemoglobin (Bld) [Mass/Vol] 14.7 g/dL 13.0-16.5 [facility] Blood lymphocytes/100 leukoc ytesOrdered By: Dr. Zaragoza on 06-13-2022 Lymphocytes/100 WBC (Bld) 35.3 % 19-41 [facility] Blood monocytes/100 leukocyt esOrdered By: Dr. Zaragoza on 06-13-2022 Monocytes/100 WBC (Bld) 8.8 % 0-10 [facility] Blood platelet mean volumeOr dered By: Dr. Zaragoza on 06-13-2022 Platelet mean volume (Bld) [Entitic vol] 9.3 fL 6.2-12.0 [facility] Determination of erythrocyte mean corpuscular volume (MCV)Ordered By: Dr. Zaragoza on 06-13-2022 MCV (RBC) [Entitic vol] 90.9 fL 80-94 [facility] Hematocrit Auto (Bld) [Volum e fraction]Ordered By: Dr. Zaragoza on 06-13-2022 Hematocrit (Bld) [Volume fraction] 43.8 % 40-54 [facility] - Chemistry and C hemistry - challengeOrdered By: Dr. Zaragoza on 06-13-2022 ALP [Catalytic activity/Vol] 71 U/L 45-117 [facility] ALT [Catalytic activity/Vol] 43 U/L 16-61 [facility] CO2 [Moles/Vol] 25.0 mmol/L 21.0-32.0 [facility] Globulin (S) [Mass/Vol] 3.9 g/dL 2.2-4.2 [facility] Urea nitrogen/Creatinine [Mass ratio] 24.9 mg/mg 10-20 [facility] - Hematology and Cell countsOrdered By: Dr. Zaragoza on 06-13-2022 Erythrocyte distribution width (RBC) [Entitic vol] 39.2 fL 35.1-43.9 [facility] Erythrocyte distribution width (RBC) [Ratio] 11.8 % 11.6-14.6 [facility] Immature granulocytes/100 WBC (Bld) 0.500 % 0.0-0.9 [facility] Comment on above: IG% - Immature Granu locytes (promyelocytes, myelocytes and metamyelocytes) > 1% indicates that a LEFT SHIFT is Present. MCH (RBC) [Entitic mass] 30.5 pg 27.0-32.0 [facility] Nucleated RBC/100 WBC (Bld) [Ratio] 0 % 0-5 [facility] MCHC Auto (RBC) [Mass/Vol]Or dered By: Dr. Zaragoza on 06-13-2022 MCHC (RBC) [Mass/Vol] 33.6 g/dL 32-36 [facility] No Panel InformationOrdered By: Dr. Zaragoza on 06-13-2022 Estimated GFR (MDRD) Amer 110 mL/min >60 [facility] Comment on above: GFR Calc Estimated GFR (MDRD) Non-Af Amer 91 mL/min >60 [facility] Comment on above: Non- GFR Calc Platelets bldOrdered By: Dr. Zaragoza on 06-13-2022 Platelets (Bld) [#/Vol] 248 10*3/uL 150-450 [facility] Serum or plasma albumin kiara urement (mass/volume)Ordered By: Dr. Zaragoza on 06-13-2022 Albumin [Mass/Vol] 4.0 g/dL 3.2-5.0 [facility] Serum or plasma albumin/glob ulin mass ratioOrdered By: Dr. Zaragoza on 06-13-2022 Albumin/Globulin [Mass ratio] 1.0 {ratio} 0.9-2.4 [facility] Serum or plasma calcium kiara urement (mass/volume)Ordered By: Dr. Zaragoza on 06-13-2022 Calcium [Mass/Vol] 9.0 mg/dL 8.5-10.1 [facility] Serum or plasma creatinine m easurement (mass/volume)Ordered By: Dr. Zaragoza on 06-13-2022 Creatinine [Mass/Vol] 0.92 mg/dL 0.70-1.30 [facility] Comment on above: The validity of the calculated GFR & GFRAA in patients over 70 years has not been determined. Clinical correlation is essential. Serum or plasma urea nitroge n measurement (mass/volume)Ordered By: Dr. Zaragoza on 06-13-2022 Urea nitrogen [Mass/Vol] 23 mg/dL 7-18 [facility] Thin prep Papanicolaou smear with manual screeningOrdered By: Dr. Zaragoza on 06-13-2022 Thin prep Papanicolaou smear with manual screening 31 U/L 15-37 [facility] Thin prep Papanicolaou smear with manual screening 11 5-15 [facility] Basophil percentageOrdered B y: Dr. Gillette on 05-30-2022 Basophil percentage > 8.0 AI 0.0-0.9 [facility] Basophil percentage < 0.2 AI 0.0-0.9 [facility] Bilirubin [Mass/Vol] 0.40 mg/dL 0.20-1.00 [facility] Comment on above: For patients on eltr ombopag therapy, use of Dimension [place] TBIL is not recommended. Chloride [Moles/Vol] 108 mmol/L 98-107 [facility] Glucose [Mass/Vol] 108 mg/dL 74-106 [facility] Comment on above: Fasting Glucose resu lt from 100 to 125 mg/dL suggests IMPAIRED HOMEOSTASIS per A.D.A. criteria. Potassium [Moles/Vol] 4.6 mmol/L 3.5-5.1 [facility] Protein [Mass/Vol] 6.9 g/dL 6.4-8.2 [facility] Sodium [Moles/Vol] 143 mmol/L 136-145 [facility] WBC (Bld) [#/Vol] 6.3 10*3/uL 4.4-11.0 [facility] Blood erythrocytes count (nu mber/volume)Ordered By: Dr. Gillette on 05-30-2022 RBC (Bld) [#/Vol] 4.85 10*6/uL 4.6-6.2 [facility] Blood hemoglobin measurement (mass/volume)Ordered By: Dr. Gillette on 05-30-2022 Hemoglobin (Bld) [Mass/Vol] 14.6 g/dL 13.0-16.5 [facility] Blood platelet mean volumeOr dered By: Dr. Gillette on 05-30-2022 Platelet mean volume (Bld) [Entitic vol] 9.6 fL 6.2-12.0 [facility] Determination of erythrocyte mean corpuscular volume (MCV)Ordered By: Dr. Gillette on 05-30-2022 MCV (RBC) [Entitic vol] 92.0 fL 80-94 [facility] Hematocrit Auto (Bld) [Volum e fraction]Ordered By: Dr. Gillette on 05-30-2022 Hematocrit (Bld) [Volume fraction] 44.6 % 40-54 [facility] - Chemistry and C hemistry - challengeOrdered By: Dr. Gillette on 05-30-2022 ALP [Catalytic activity/Vol] 76 U/L 45-117 [facility] ALT [Catalytic activity/Vol] 41 U/L 16-61 [facility] CO2 [Moles/Vol] 29.0 mmol/L 21.0-32.0 [facility] Globulin (S) [Mass/Vol] 3.4 g/dL 2.2-4.2 [facility] Magnesium [Mass/Vol] 2.0 mg/dL 1.6-2.6 [facility] Urea nitrogen/Creatinine [Mass ratio] 13.9 mg/mg 10-20 [facility] - Hematology and Cell countsOrdered By: Dr. Gillette on 05-30-2022 Erythrocyte distribution width (RBC) [Entitic vol] 40.2 fL 35.1-43.9 [facility] Erythrocyte distribution width (RBC) [Ratio] 11.9 % 11.6-14.6 [facility] MCH (RBC) [Entitic mass] 30.1 pg 27.0-32.0 [facility] MCHC Auto (RBC) [Mass/Vol]Or dered By: Dr. Gillette on 05-30-2022 MCHC (RBC) [Mass/Vol] 32.7 g/dL 32-36 [facility] No Panel InformationOrdered By: Dr. Gillette on 05-30-2022 Anti-Nuclear Antibody Screen Positive Negative [facility] Centromere B Antibody <0.2 AI 0.0-0.9 [facility] Estimated GFR (MDRD) Amer 120 mL/min >60 [facility] Comment on above: GFR Calc Estimated GFR (MDRD) Non-Af Amer 99 mL/min >60 [facility] Comment on above: Non- GFR Calc ACID DUMPER Antibody 0.6 AI 0.0-0.9 [facility] Thyroid Stimulating Hormone (TSH) 1.21 uIU/mL 0.358-3.74 [facility] Platelets bldOrdered By: Dr. Gillette on 05-30-2022 Platelets (Bld) [#/Vol] 229 10*3/uL 150-450 [facility] Serum DNA double strand anti body assay (units/volume)Ordered By: Dr. Gillette on 05-30-2022 DNA double strand Ab Qn (S) 8 [IU]/mL 0-9 [facility] Comment on above: Negative <5 Equivoca l 5 - 9 Positive >9 Serum Yuni-1 antibody assay (u nits/volume)Ordered By: Dr. Gillette on 05-30-2022 Yuni-1 extractable nuclear Ab Qn (S) <0.2 AI 0.0-0.9 [facility] Serum Scl-70 extractable nuc lear antibody assay (units/volume)Ordered By: Dr. Gillette on 05-30-2022 SCL-70 extractable nuclear Ab Qn (S) <0.2 AI 0.0-0.9 [facility] Serum Gillette extractable nucl ear antibody detectionOrdered By: Dr. Gillette on 05-30-2022 Nain extractable nuclear Ab Ql (S) <0.2 AI 0.0-0.9 [facility] Serum or plasma C reactive p rotein measurement (mass/volume)Ordered By: Dr. Gillette on 05-30-2022 CRP [Mass/Vol] mg/L 0.0-3.0 [facility] Comment on above: C-Reactive Protein ( CRP) provides useful information for thediagnosis, therapy and monitoring of inflammatory processesand associated diseases. For the evaluation of Relative Riskfor Cardiovascular Disease, a High Sensitivity CRP (HSCRP)should be ordered. Serum or plasma albumin kiara urement (mass/volume)Ordered By: Dr. Gillette on 05-30-2022 Albumin [Mass/Vol] 3.5 g/dL 3.2-5.0 [facility] Serum or plasma albumin/glob ulin mass ratioOrdered By: Dr. Gillette on 05-30-2022 Albumin/Globulin [Mass ratio] 1.0 {ratio} 0.9-2.4 [facility] Serum or plasma calcium kiara urement (mass/volume)Ordered By: Dr. Gillette on 05-30-2022 Calcium [Mass/Vol] 8.9 mg/dL 8.5-10.1 [facility] Serum or plasma creatinine m easurement (mass/volume)Ordered By: Dr. Gillette on 05-30-2022 Creatinine [Mass/Vol] 0.86 mg/dL 0.70-1.30 [facility] Comment on above: The validity of the calculated GFR & GFRAA in patients over 70 years has not been determined. Clinical correlation is essential. Serum or plasma urea nitroge n measurement (mass/volume)Ordered By: Dr. Gillette on 05-30-2022 Urea nitrogen [Mass/Vol] 12 mg/dL 7-18 [facility] Thin prep Papanicolaou smear with manual screeningOrdered By: Dr. Gillette on 05-30-2022 Thin prep Papanicolaou smear with manual screening 23 U/L 15-37 [facility] Thin prep Papanicolaou smear with manual screening 6 5-15 [facility] Absolute lymphocyte counton 02-05-2022 Lymphocytes Auto (Unsp spec) [#/Vol] 1.37 10*3/uL 0.83-4.51 [facility] Work Phone: Basophil percentageon 2021 Basophils/100 WBC (Bld) 0.6 % 0-1 [facility] Work Phone: Chloride [Moles/Vol] 105 mmol/L 98-107 [facility] Work Phone: Cholesterol [Mass/Vol] 182 mg/dL <200 [facility] Work Phone: Comment on above: <200 mg/dL Desirable 200-240 mg/dL Borderline >240 mg/dL High Risk Eosinophils/100 WBC (Bld) 1.0 % 0-5 [facility] Work Phone: Glucose [Mass/Vol] 115 mg/dL 74-106 [facility] Work Phone: Comment on above: Fasting Glucose resu lt from 100 to 125 mg/dL suggests IMPAIRED HOMEOSTASIS per A.D.A. criteria. Neutrophils (Bld) [#/Vol] 4.9 10*3/uL 2.0-7.7 [facility] Work Phone: Neutrophils/100 WBC (Bld) 71.7 % 47-70 [facility] Work Phone: Potassium [Moles/Vol] 4.1 mmol/L 3.5-5.1 [facility] Work Phone: Sodium [Moles/Vol] 138 mmol/L 136-145 [facility] Work Phone: Triglyceride [Mass/Vol] 128 mg/dL <199 [facility] Work Phone: Comment on above: The drugs N-Acetylcy steine and Metamizole may falsely depress this assay.Serum Triglycerides Reference Interval Normal <150 mg/dL Borderline high 150 - 199 mg/dL High 200 - 499 mg/dL Very High > or = 500 mg/dL WBC (Bld) [#/Vol] 6.8 10*3/uL 4.4-11.0 [facility] Work Phone: Blood erythrocytes count (nu mber/volume)on 02-05-2022 RBC (Bld) [#/Vol] 4.83 10*6/uL 4.6-6.2 [facility] Work Phone: Blood hemoglobin measurement (mass/volume)on 02-05-2022 Hemoglobin (Bld) [Mass/Vol] 14.8 g/dL 13.0-16.5 [facility] Work Phone: Blood lymphocytes/100 leukoc yteson 02-05-2022 Lymphocytes/100 WBC (Bld) 20.1 % 19-41 [facility] Work Phone: Blood monocytes/100 leukocyt eson 02-05-2022 Monocytes/100 WBC (Bld) 6.2 % 0-10 [facility] Work Phone: Blood platelet mean volumeon 02-05-2022 Platelet mean volume (Bld) [Entitic vol] 9.7 fL 6.2-12.0 [facility] Work Phone: Determination of erythrocyte mean corpuscular volume (MCV)on 02-05-2022 MCV (RBC) [Entitic vol] 91.3 fL 80-94 [facility] Work Phone: Hematocrit Auto (Bld) [Volum e fraction]on 02-05-2022 Hematocrit (Bld) [Volume fraction] 44.1 % 40-54 [facility] Work Phone: Laboratory - Chemistry and C hemistry - challengeon 02-05-2022 CO2 [Moles/Vol] 26.0 mmol/L 21.0-32.0 [facility] Work Phone: Magnesium [Mass/Vol] 2.1 mg/dL 1.6-2.6 [facility] Work Phone: Urea nitrogen/Creatinine [Mass ratio] 20.9 mg/mg 10-20 [facility] Work Phone: Laboratory - Hematology and Cell countson 02-05-2022 Erythrocyte distribution width (RBC) [Entitic vol] 39.4 fL 35.1-43.9 [facility] Work Phone: Erythrocyte distribution width (RBC) [Ratio] 11.8 % 11.6-14.6 [facility] Work Phone: Immature granulocytes/100 WBC (Bld) 0.400 % 0.0-0.9 [facility] Work Phone: Comment on above: IG% - Immature Granu locytes (promyelocytes, myelocytes and metamyelocytes) > 1% indicates that a LEFT SHIFT is Present. MCH (RBC) [Entitic mass] 30.6 pg 27.0-32.0 [facility] Work Phone: Nucleated RBC/100 WBC (Bld) [Ratio] 0 % 0-5 [facility] Work Phone: MCHC Auto (RBC) [Mass/Vol]on 02-05-2022 MCHC (RBC) [Mass/Vol] 33.6 g/dL 32-36 [facility] Work Phone: No Panel Informationon 02-05 Estimated GFR (MDRD) Amer 120 mL/min >60 [facility] Work Phone: Comment on above: GFR Calc Estimated GFR (MDRD) Non-Af Amer 99 mL/min >60 [facility] Work Phone: Comment on above: Non- GFR Calc Urine Microalbumin/Creatini ne Ratio 4.8 mg/g CRE <30 [facility] Work Phone: Platelets bldon 02-05-2022 Platelets (Bld) [#/Vol] 212 10*3/uL 150-450 [facility] Work Phone: Serum or plasma calcium kiara urement (mass/volume)on 02-05-2022 Calcium [Mass/Vol] 9.5 mg/dL 8.5-10.1 [facility] Work Phone: Serum or plasma cholesterol in HDL measurement (mass/volume)on 02-05-2022 Cholesterol in HDL [Mass/Vol] 57 mg/dL >40 [facility] Work Phone: Comment on above: The drugs N-Acetylcy steine and Metamizole may falsely depress this assay. Reference Range HDL <40 mg/dL Low HDL Cholesterol HDL >or= 60 mg/dL High HDL Cholesterol Serum or plasma cholesterol in VLDL measurement (mass/volume)on 02-05-2022 Cholesterol in VLDL [Mass/Vol] 26 mg/dL 5-40 [facility] Work Phone: Serum or plasma creatinine m easurement (mass/volume)on 02-05-2022 Creatinine [Mass/Vol] 0.86 mg/dL 0.70-1.30 [facility] Work Phone: Comment on above: The validity of the calculated GFR & GFRAA in patients over 70 years has not been determined. Clinical correlation is essential. Serum or plasma low density lipoprotein (LDL) cholesterol measurement (mass/volume)on 02-05-2022 Cholesterol in LDL [Mass/Vol] 99 mg/dL 0-130 [facility] Work Phone: Serum or plasma urea nitroge n measurement (mass/volume)on 02-05-2022 Urea nitrogen [Mass/Vol] 18 mg/dL 7-18 [facility] Work Phone: Thin prep Papanicolaou smear with manual screeningon 02-05-2022 Thin prep Papanicolaou smear with manual screening 7 5-15 [facility] Work Phone: Thin prep Papanicolaou smear with manual screening 12.8 mg/L NO RANGE EST. [facility] Work Phone: Urine creatinine measurement (mass/volume)on 02-05-2022 Creatinine (U) [Mass/Vol] 267.00 mg/dL NO RANGE EST. [facility] Work Phone: Whole blood hemoglobin A1c/t otal hemoglobin ratio (mass fraction)on 02-05-2022 HbA1c (Bld) [Mass fraction] 5.6 % 3.8-5.6 [facility] Work Phone: Comment on above: Normal < 5.7 % Predi abetic 5.7 - 6.4 % Diabetic >or= 6.5 % Please note range changes. Basophil percentageon 2021 Bilirubin [Mass/Vol] 0.80 mg/dL 0.20-1.00 [facility] Work Phone: Comment on above: For patients on eltr ombopag therapy, use of Dimension [place] TBIL is not recommended. Chloride [Moles/Vol] 104 mmol/L 98-107 [facility] Work Phone: Glucose [Mass/Vol] 87 mg/dL 74-106 [facility] Work Phone: Potassium [Moles/Vol] 3.3 mmol/L 3.5-5.1 [facility] Work [facility]: Protein [Mass/Vol] 7.5 g/dL 6.4-8.2 [facility] Work Phone: Sodium [Moles/Vol] 137 mmol/L 136-145 [facility] Work Phone: WBC (Bld) [#/Vol] 9.2 10*3/uL 4.4-11.0 [facility] Work Phone: Blood erythrocytes count (nu mber/volume)on 12-12-2021 RBC (Bld) [#/Vol] 4.58 10*6/uL 4.6-6.2 [facility] Work Phone: Blood hemoglobin measurement (mass/volume)on 12-12-2021 Hemoglobin (Bld) [Mass/Vol] 13.6 g/dL 13.0-16.5 [facility] Work Phone: Blood platelet mean volumeon 12-12-2021 Platelet mean volume (Bld) [Entitic vol] 9.8 fL 6.2-12.0 [facility] Work Phone: Determination of erythrocyte mean corpuscular volume (MCV)on 12-12-2021 MCV (RBC) [Entitic vol] 91.9 fL 80-94 [facility] Work Phone: Hematocrit Auto (Bld) [Volum e fraction]on 12-12-2021 Hematocrit (Bld) [Volume fraction] 42.1 % 40-54 [facility] Work Phone: Laboratory - Chemistry and C hemistry - challengeon 12-12-2021 ALP [Catalytic activity/Vol] 76 U/L 45-117 [facility] Work Phone: ALT [Catalytic activity/Vol] 48 U/L 16-61 [facility] Work Phone: CO2 [Moles/Vol] 24.0 mmol/L 21.0-32.0 [facility] Work Phone: Globulin (S) [Mass/Vol] 3.6 g/dL 2.2-4.2 [facility] Work Phone: [phone] Urea nitrogen/Creatinine [Mass ratio] 18.0 mg/mg 10-20 [facility] Work Phone: Laboratory - Hematology and Cell countson 12-12-2021 Erythrocyte distribution width (RBC) [Entitic vol] 42.1 fL 35.1-43.9 [facility] Work Phone: Erythrocyte distribution width (RBC) [Ratio] 12.6 % 11.6-14.6 [facility] Work Phone: MCH (RBC) [Entitic mass] 29.7 pg 27.0-32.0 [facility] Work Phone: MCHC Auto (RBC) [Mass/Vol]on 12-12-2021 MCHC (RBC) [Mass/Vol] 32.3 g/dL 32-36 [facility] Work Phone: No Panel Informationon 12-12 Estimated GFR (MDRD) Amer 108 mL/min >60 [facility] Work Phone: Comment on above: GFR Calc Estimated GFR (MDRD) Non-Af Amer 89 mL/min >60 [facility] Work Phone: Comment on above: Non- GFR Calc Platelets bldon 12-12-2021 Platelets (Bld) [#/Vol] 241 10*3/uL 150-450 [facility] Work Phone: Serum or plasma albumin kiara urement (mass/volume)on 12-12-2021 Albumin [Mass/Vol] 3.9 g/dL 3.2-5.0 [facility] Work Phone: Serum or plasma albumin/glob ulin mass ratioon 12-12-2021 Albumin/Globulin [Mass ratio] 1.1 {ratio} 0.9-2.4 [facility] Work Phone: Serum or plasma calcium kiara urement (mass/volume)on 12-12-2021 Calcium [Mass/Vol] 8.9 mg/dL 8.5-10.1 [facility] Work Phone: Serum or plasma creatinine m easurement (mass/volume)on 12-12-2021 Creatinine [Mass/Vol] 0.95 mg/dL 0.70-1.30 [facility] Work Phone: Comment on above: The validity of the calculated GFR & GFRAA in patients over 70 years has not been determined. Clinical correlation is essential. Serum or plasma urea nitroge n measurement (mass/volume)on 12-12-2021 Urea nitrogen [Mass/Vol] 17 mg/dL 7-18 [facility] Work Phone: Thin prep Papanicolaou smear with manual screeningon 12-12-2021 Thin prep Papanicolaou smear with manual screening 35 U/L 15-37 [facility] Work Phone: Thin prep Papanicolaou smear with manual screening 9 5-15 [facility] Work Phone: Absolute lymphocyte counton 09-10-2021 Lymphocytes Auto (Unsp spec) [#/Vol] 1.60 10*3/uL 0.83-4.51 [facility] Work Phone: Basophil percentageon 2021 Basophils/100 WBC (Bld) 0.2 % 0-1 [facility] Work Phone: Eosinophils/100 WBC (Bld) 0.5 % 0-5 [facility] Work Phone: Neutrophils (Bld) [#/Vol] 9.5 10*3/uL 2.0-7.7 [facility] Work Phone: [phone] Neutrophils/100 WBC (Bld) 74.5 % 47-70 [facility] Work Phone: WBC (Bld) [#/Vol] 12.8 10*3/uL 4.4-11.0 [facility] Work Phone: Blood erythrocytes count (nu mber/volume)on 09-10-2021 RBC (Bld) [#/Vol] 4.56 10*6/uL 4.6-6.2 [facility]: Blood hemoglobin measurement (mass/volume)on 09-10-2021 Hemoglobin (Bld) [Mass/Vol] 13.8 g/dL 13.0-16.5 [facility] Work Phone: Blood lymphocytes/100 leukoc yteson 09-10-2021 Lymphocytes/100 WBC (Bld) 12.5 % 19-41 [facility] Work Phone: Blood monocytes/100 leukocyt eson 09-10-2021 Monocytes/100 WBC (Bld) 11.4 % 0-10 [facility] Work Phone: Blood platelet mean volumeon 09-10-2021 Platelet mean volume (Bld) [Entitic vol] 9.3 fL 6.2-12.0 [facility] Work Phone: Determination of erythrocyte mean corpuscular volume (MCV)on 09-10-2021 MCV (RBC) [Entitic vol] 92.8 fL 80-94 [facility] Work Phone: Hematocrit Auto (Bld) [Volum e fraction]on 09-10-2021 Hematocrit (Bld) [Volume fraction] 42.3 % 40-54 [facility] Work Phone: Laboratory - Hematology and Cell countson 09-10-2021 Erythrocyte distribution width (RBC) [Entitic vol] 40.5 fL 35.1-43.9 [facility] Work Phone: Erythrocyte distribution width (RBC) [Ratio] 11.8 % 11.6-14.6 [facility] Work Phone: Immature granulocytes/100 WBC (Bld) 0.900 % 0.0-0.9 [facility] Work Phone: Comment on above: IG% - Immature Granu locytes (promyelocytes, myelocytes and metamyelocytes) > 1% indicates that a LEFT SHIFT is Present. MCH (RBC) [Entitic mass] 30.3 pg 27.0-32.0 [facility] Work Phone: Nucleated RBC/100 WBC (Bld) [Ratio] 0 % 0-5 [facility] Work Phone: MCHC Auto (RBC) [Mass/Vol]on 09-10-2021 MCHC (RBC) [Mass/Vol] 32.6 g/dL 32-36 [facility] Work Phone: Platelets bldon 09-10-2021 Platelets (Bld) [#/Vol] 240 10*3/uL 150-450 [facility] Work Phone: Basophil percentageon 2021 Chloride [Moles/Vol] 104 mmol/L 98-107 [facility] Work Phone: Glucose [Mass/Vol] 83 mg/dL 74-106 [facility] Work Phone: Potassium [Moles/Vol] 3.6 mmol/L 3.5-5.1 [facility] Work Phone: Sodium [Moles/Vol] 136 mmol/L 136-145 [facility] Work Phone: INR in Blood by Coagulation assayon 09-09-2021 INR Coag (Bld) [Relative time] 1.1 {INR} [facility] Work Phone: Laboratory - Chemistry and C hemistry - challengeon 09-09-2021 CO2 [Moles/Vol] 25.0 mmol/L 21.0-32.0 [facility] Work Phone: Urea nitrogen/Creatinine [Mass ratio] 16.0 mg/mg 10-20 [facility] Work Phone: Laboratory - Coagulationon 0 09-09-2021 aPTT Coag (Bld) [Time] 28.2 s 24.1-36.2 [facility] Work Phone: PT Coag (PPP) [Time] 13.6 s 11.7-14.9 [facility] Work Phone: No Panel Informationon 09-09 Estimated Creatinine Clearance Calc 105.15 ml/min [facility] Work Phone: Estimated GFR (MDRD) Amer 141 mL/min >60 [facility] Work Phone: Comment on above: GFR Calc Estimated GFR (MDRD) Non-Af Amer 116 mL/min >60 [facility] Work Phone: Comment on above: Non- GFR Calc Review by pathologiston Pathologist review Laz (Unsp spec) [Interp] Ruth Ann perry [facility] Work Phone: Pathologist review Laz (Unsp spec) [Interp] Reviewed [facility] Work Phone: Comment on above: Previous reported re sult: Ruth Ann perry Edited by: DEISY on 09/11/21:1220Neutrophilic leukocytosis.Clinical correlation necessary.Melo Hopkins M.D. 09/11/21 AMENDED REPORT 09/11/21 1220 PATH REV previously reported as: Ruth Ann perry Serum or plasma calcium kiara urement (mass/volume)on 09-09-2021 Calcium [Mass/Vol] 8.7 mg/dL 8.5-10.1 [facility] Work Phone: Serum or plasma creatinine m easurement (mass/volume)on 09-09-2021 Creatinine [Mass/Vol] 0.75 mg/dL 0.70-1.30 [facility] Work Phone: Comment on above: The validity of the calculated GFR & GFRAA in patients over 70 years has not been determined. Clinical correlation is essential. Serum or plasma urea nitroge n measurement (mass/volume)on 09-09-2021 Urea nitrogen [Mass/Vol] 12 mg/dL 7-18 [facility] Work Phone: Thin prep Papanicolaou smear with manual screeningon 09-09-2021 Thin prep Papanicolaou smear with manual screening 7 5-15 [facility] Work Phone: Basophil percentageon 2021 Bilirubin [Mass/Vol] 0.70 mg/dL 0.20-1.00 [facility] Work Phone: Comment on above: For patients on eltr ombopag therapy, use of Dimension [place] TBIL is not recommended. Protein [Mass/Vol] 7.1 g/dL 6.4-8.2 [facility] Work Phone: Direct bilirubinon 2 Bilirubin.direct [Mass/Vol] 0.25 mg/dL 0.00-0.30 [facility] Work Phone: Laboratory - Chemistry and C hemistry - challengeon 09-07-2021 ALP [Catalytic activity/Vol] 169 U/L 45-117 [facility] Work Phone: ALT [Catalytic activity/Vol] 272 U/L 16-61 [facility] Work Phone: Globulin (S) [Mass/Vol] 4.1 g/dL 2.2-4.2 [facility] Work Phone: Lipase [Catalytic activity/Vol] 1576 U/L 73-393 [facility] Work Phone: Serum or plasma albumin kiara urement (mass/volume)on 09-07-2021 Albumin [Mass/Vol] 3.0 g/dL 3.2-5.0 [facility] Work Phone: Thin prep Papanicolaou smear with manual screeningon 09-07-2021 Thin prep Papanicolaou smear with manual screening 135 U/L 15-37 [facility] Work Phone: Basophil percentageon 2021 Cholesterol [Mass/Vol] 120 mg/dL <200 [facility] Work Phone: Comment on above: <200 mg/dL Desirable 200-240 mg/dL Borderline >240 mg/dL High Risk Triglyceride [Mass/Vol] 54 mg/dL <199 [facility] Work Phone: Comment on above: The drugs N-Acetylcy steine and Metamizole may falsely depress this assay.Serum Triglycerides Reference Interval Normal <150 mg/dL Borderline high 150 - 199 mg/dL High 200 - 499 mg/dL Very High > or = 500 mg/dL Serum or plasma albumin/glob ulin mass ratioon 09-06-2021 Albumin/Globulin [Mass ratio] 0.9 {ratio} 0.9-2.4 [facility] Work Phone: Serum or plasma cholesterol in HDL measurement (mass/volume)on 09-06-2021 Cholesterol in HDL [Mass/Vol] 51 mg/dL >40 [facility] Work Phone: Comment on above: The drugs N-Acetylcy steine and Metamizole may falsely depress this assay. Reference Range HDL <40 mg/dL Low HDL Cholesterol HDL >or= 60 mg/dL High HDL Cholesterol Serum or plasma cholesterol in VLDL measurement (mass/volume)on 09-06-2021 Cholesterol in VLDL [Mass/Vol] 11 mg/dL 5-40 [facility] Work Phone: Serum or plasma low density lipoprotein (LDL) cholesterol measurement (mass/volume)on 09-06-2021 Cholesterol in LDL [Mass/Vol] 58 mg/dL 0-130 [facility] Work Phone: Absolute lymphocyte counton 09-05-2021 Lymphocytes Auto (Unsp spec) [#/Vol] 0.84 10*3/uL 0.83-4.51 [facility] Work Phone: Basophil percentageon 2021 Basophils/100 WBC (Bld) 0.2 % 0-1 [facility] Work Phone: Bilirubin [Mass/Vol] 1.50 mg/dL 0.20-1.00 [facility] Work Phone: Comment on above: For patients on eltr ombopag therapy, use of Dimension [place] TBIL is not recommended. Chloride [Moles/Vol] 107 mmol/L 98-107 [facility] Work Phone: Eosinophils/100 WBC (Bld) 0.1 % 0-5 [facility] Work Phone: Glucose [Mass/Vol] 202 mg/dL 74-106 [facility] Work Phone: Comment on above: Glucose result great er than or equal to 200 mg/dLsuggests DIABETES MELLITUS per A.D.A. criteria. Neutrophils (Bld) [#/Vol] 14.3 10*3/uL 2.0-7.7 [facility] Work Phone: Neutrophils/100 WBC (Bld) 87.5 % 47-70 [facility] Work Phone: [phone] Potassium [Moles/Vol] 3.9 mmol/L 3.5-5.1 [facility] Work Phone: [phone] Protein [Mass/Vol] 8.2 g/dL 6.4-8.2 [facility] Work Phone: Sodium [Moles/Vol] 139 mmol/L 136-145 [facility] Work Phone: WBC (Bld) [#/Vol] 16.4 10*3/uL 4.4-11.0 [facility] Work [facility]: Blood erythrocytes count (nu mber/volume)on 09-05-2021 RBC (Bld) [#/Vol] 4.95 10*6/uL 4.6-6.2 [facility] Work Phone: Blood hemoglobin measurement (mass/volume)on 09-05-2021 Hemoglobin (Bld) [Mass/Vol] 15.0 g/dL 13.0-16.5 [facility] Work Phone: Blood lymphocytes/100 leukoc yteson 09-05-2021 Lymphocytes/100 WBC (Bld) 5.1 % 19-41 [facility] Work Phone: Blood monocytes/100 leukocyt eson 09-05-2021 Monocytes/100 WBC (Bld) 6.5 % 0-10 [facility] Work Phone: [phone] Blood platelet mean volumeon 09-05-2021 Platelet mean volume (Bld) [Entitic vol] 9.4 fL 6.2-12.0 [facility] Work Phone: Determination of erythrocyte mean corpuscular volume (MCV)on 09-05-2021 MCV (RBC) [Entitic vol] 92.5 fL 80-94 [facility] Work Phone: Direct bilirubinon 2 Bilirubin.direct [Mass/Vol] 1.21 mg/dL 0.00-0.30 [facility] Work Phone: Hematocrit Auto (Bld) [Volum e fraction]on 09-05-2021 Hematocrit (Bld) [Volume fraction] 45.8 % 40-54 [facility] Work Phone: Laboratory - Chemistry and C hemistry - challengeon 09-05-2021 ALP [Catalytic activity/Vol] 236 U/L 45-117 [facility] Work Phone: ALT [Catalytic activity/Vol] 405 U/L 16-61 [facility] Work Phone: CO2 [Moles/Vol] 25.0 mmol/L 21.0-32.0 [facility] Work Phone: Globulin (S) [Mass/Vol] 4.3 g/dL 2.2-4.2 [facility] Work Phone: Lipase [Catalytic activity/Vol] 07015 U/L 73-393 [facility] Work Phone: Urea nitrogen/Creatinine [Mass ratio] 13.9 mg/mg 10-20 [facility] Work Phone: Laboratory - Hematology and Cell countson 09-05-2021 Erythrocyte distribution width (RBC) [Entitic vol] 41.2 fL 35.1-43.9 [facility] Work Phone: Erythrocyte distribution width (RBC) [Ratio] 12.1 % 11.6-14.6 [facility] Work Phone: Immature granulocytes/100 WBC (Bld) 0.600 % 0.0-0.9 [facility] Work Phone: Comment on above: IG% - Immature Granu locytes (promyelocytes, myelocytes and metamyelocytes) > 1% indicates that a LEFT SHIFT is Present. MCH (RBC) [Entitic mass] 30.3 pg 27.0-32.0 [facility] Work Phone: Nucleated RBC/100 WBC (Bld) [Ratio] 0 % 0-5 [facility] Work Phone: MCHC Auto (RBC) [Mass/Vol]on 09-05-2021 MCHC (RBC) [Mass/Vol] 32.8 g/dL 32-36 [facility] Work Phone: No Panel Informationon 09-05 Estimated Creatinine Clearance Calc 68.58 ml/min [facility] Work Phone: Estimated GFR (MDRD) Amer 86 mL/min >60 [facility] Work Phone: Comment on above: GFR Calc Estimated GFR (MDRD) Non-Af Amer 71 mL/min >60 [facility] Work Phone: Comment on above: Non- GFR Calc Platelets bldon 09-05-2021 Platelets (Bld) [#/Vol] 269 10*3/uL 150-450 [facility] Work Phone: Serum or plasma albumin kiara urement (mass/volume)on 09-05-2021 Albumin [Mass/Vol] 3.9 g/dL 3.2-5.0 [facility] Work Phone: Serum or plasma calcium kiara urement (mass/volume)on 09-05-2021 Calcium [Mass/Vol] 9.7 mg/dL 8.5-10.1 [facility] Work Phone: Serum or plasma creatinine m easurement (mass/volume)on 09-05-2021 Creatinine [Mass/Vol] 1.15 mg/dL 0.70-1.30 [facility] Work Phone: Comment on above: The validity of the calculated GFR & GFRAA in patients over 70 years has not been determined. Clinical correlation is essential. Serum or plasma urea nitroge n measurement (mass/volume)on 09-05-2021 Urea nitrogen [Mass/Vol] 16 mg/dL 7-18 [facility] Work Phone: Thin prep Papanicolaou smear with manual screeningon 09-05-2021 Thin prep Papanicolaou smear with manual screening 410 U/L 15-37 [facility] Work Phone: Thin prep Papanicolaou smear with manual screening 7 5-15 [facility] Work Phone: Absolute lymphocyte counton 07-23-2021 Lymphocytes Auto (Unsp spec) [#/Vol] 1.63 10*3/uL 0.83-4.51 [facility] Work Phone: [phone] Basophil percentageon 2021 Basophils/100 WBC (Bld) 0.4 % 0-1 [facility] Work Phone: Bilirubin [Mass/Vol] 0.60 mg/dL 0.20-1.00 [facility] Work Phone: [phone] Comment on above: For patients on eltr ombopag therapy, use of Dimension [place] TBIL is not recommended. Chloride [Moles/Vol] 105 mmol/L 98-107 [facility] Work Phone: Eosinophils/100 WBC (Bld) 0.5 % 0-5 [facility] Work Phone: Glucose [Mass/Vol] 169 mg/dL 74-106 [facility] Work Phone: [phone] Comment on above: Fasting Glucose resu lt greater than or equal to 126 mg/dL suggests DIABETES MELLITUS per A.D.A. criteria. Neutrophils (Bld) [#/Vol] 8.6 10*3/uL 2.0-7.7 [facility] Work Phone: [phone] Neutrophils/100 WBC (Bld) 77.5 % 47-70 [facility] Work Phone: Potassium [Moles/Vol] 4.0 mmol/L 3.5-5.1 [facility] Work Phone: Protein [Mass/Vol] 8.0 g/dL 6.4-8.2 [facility] Work Phone: Sodium [Moles/Vol] 137 mmol/L 136-145 [facility] Work Phone: WBC (Bld) [#/Vol] 11.0 10*3/uL 4.4-11.0 [facility] Work Phone: Blood erythrocytes count (nu mber/volume)on 07-23-2021 RBC (Bld) [#/Vol] 4.72 10*6/uL 4.6-6.2 [facility] Work Phone: Blood hemoglobin measurement (mass/volume)on 07-23-2021 Hemoglobin (Bld) [Mass/Vol] 14.5 g/dL 13.0-16.5 [facility] Work Phone: Blood lymphocytes/100 leukoc yteson 07-23-2021 Lymphocytes/100 WBC (Bld) 14.8 % 19-41 [facility] Work Phone: Blood monocytes/100 leukocyt eson 07-23-2021 Monocytes/100 WBC (Bld) 6.3 % 0-10 [facility] Work Phone: Blood platelet mean volumeon 07-23-2021 Platelet mean volume (Bld) [Entitic vol] 9.6 fL 6.2-12.0 [facility] Work Phone: Determination of erythrocyte mean corpuscular volume (MCV)on 07-23-2021 MCV (RBC) [Entitic vol] 90.5 fL 80-94 [facility] Work Phone: Hematocrit Auto (Bld) [Volum e fraction]on 07-23-2021 Hematocrit (Bld) [Volume fraction] 42.7 % 40-54 [facility] Work Phone: Laboratory - Chemistry and C hemistry - challengeon 07-23-2021 ALP [Catalytic activity/Vol] 70 U/L 45-117 [facility] Work Phone: ALT [Catalytic activity/Vol] 44 U/L 16-61 [facility] Work Phone: CO2 [Moles/Vol] 27.0 mmol/L 21.0-32.0 [facility] Work Phone: Globulin (S) [Mass/Vol] 4.1 g/dL 2.2-4.2 [facility] Work Phone: Urea nitrogen/Creatinine [Mass ratio] 18.4 mg/mg 10-20 [facility] Work Phone: Laboratory - Hematology and Cell countson 07-23-2021 Erythrocyte distribution width (RBC) [Entitic vol] 40.2 fL 35.1-43.9 [facility] Work Phone: Erythrocyte distribution width (RBC) [Ratio] 12.2 % 11.6-14.6 [facility] Work Phone: Immature granulocytes/100 WBC (Bld) 0.500 % 0.0-0.9 [facility] Work Phone: Comment on above: IG% - Immature Granu locytes (promyelocytes, myelocytes and metamyelocytes) > 1% indicates that a LEFT SHIFT is Present. MCH (RBC) [Entitic mass] 30.7 pg 27.0-32.0 [facility] Work Phone: Nucleated RBC/100 WBC (Bld) [Ratio] 0 % 0-5 [facility] Work Phone: MCHC Auto (RBC) [Mass/Vol]on 07-23-2021 MCHC (RBC) [Mass/Vol] 34.0 g/dL 32-36 [facility] Work Phone: No Panel Informationon 07-23 Estimated GFR (MDRD) Amer 111 mL/min >60 [facility] Work Phone: Comment on above: GFR Calc Estimated GFR (MDRD) Non-Af Amer 92 mL/min >60 [facility] Work Phone: Comment on above: Non- GFR Calc Platelets bldon 07-23-2021 Platelets (Bld) [#/Vol] 263 10*3/uL 150-450 [facility] Work Phone: Serum or plasma albumin kiara urement (mass/volume)on 07-23-2021 Albumin [Mass/Vol] 3.9 g/dL 3.2-5.0 [facility] Work Phone: Serum or plasma albumin/glob ulin mass ratioon 07-23-2021 Albumin/Globulin [Mass ratio] 1.0 {ratio} 0.9-2.4 [facility] Work Phone: Serum or plasma calcium kiara urement (mass/volume)on 07-23-2021 Calcium [Mass/Vol] 9.2 mg/dL 8.5-10.1 [facility] Work Phone: Serum or plasma creatinine m easurement (mass/volume)on 07-23-2021 Creatinine [Mass/Vol] 0.92 mg/dL 0.70-1.30 [facility] Work Phone: Comment on above: The validity of the calculated GFR & GFRAA in patients over 70 years has not been determined. Clinical correlation is essential. Serum or plasma urea nitroge n measurement (mass/volume)on 07-23-2021 Urea nitrogen [Mass/Vol] 17 mg/dL 7-18 [facility] Work Phone: Thin prep Papanicolaou smear with manual screeningon 07-23-2021 Thin prep Papanicolaou smear with manual screening 25 U/L 15-37 [facility] Work Phone: Thin prep Papanicolaou smear with manual screening 5 5-15 [facility] Work Phone: Absolute lymphocyte counton 04-17-2021 Lymphocytes Auto (Unsp spec) [#/Vol] 2.08 10*3/uL 0.83-4.51 [facility] Work Phone: Basophil percentageon 2020 Bilirubin [Mass/Vol] 0.60 mg/dL 0.20-1.00 [facility] Work Phone: Comment on above: For patients on eltr ombopag therapy, use of Dimension [place] TBIL is not recommended. Chloride [Moles/Vol] 102 mmol/L 98-107 [facility]: Eosinophils/100 WBC (Bld) 0.4 % 0-5 [facility] Work Phone: Glucose [Mass/Vol] 96 mg/dL 74-106 [facility] Work Phone: Comment on above: Please note revised GLUCOSE reference range effective 2017. Neutrophils (Bld) [#/Vol] 7.1 10*3/uL 2.0-7.7 [facility] Work Phone: Potassium [Moles/Vol] 3.9 mmol/L 3.5-5.1 [facility] Work Phone: Protein [Mass/Vol] 7.8 g/dL 6.4-8.2 [facility] Work Phone: Sodium [Moles/Vol] 137 mmol/L 136-145 [facility] Work Phone: WBC (Bld) [#/Vol] 10.0 10*3/uL 4.4-11.0 [facility] Work Phone: Blood erythrocytes count (nu mber/volume)on 04-17-2021 RBC (Bld) [#/Vol] 4.76 10*6/uL 4.6-6.2 [facility] Work Phone: Blood hemoglobin measurement (mass/volume)on 04-17-2021 Hemoglobin (Bld) [Mass/Vol] 14.6 g/dL 13.0-16.5 [facility] Work Phone: [phone] Blood lymphocytes/100 leukoc yteson 04-17-2021 Lymphocytes/100 WBC (Bld) 20.8 % 19-41 [facility] Work Phone: Blood monocytes/100 leukocyt eson 04-17-2021 Monocytes/100 WBC (Bld) 7.2 % 0-10 [facility] Work Phone: Blood platelet mean volumeon 04-17-2021 Platelet mean volume (Bld) [Entitic vol] 9.5 fL 6.2-12.0 [facility] Work Phone: Determination of erythrocyte mean corpuscular volume (MCV)on 04-17-2021 MCV (RBC) [Entitic vol] 90.1 fL 80-94 [facility] Work Phone: Hematocrit Auto (Bld) [Volum e fraction]on 04-17-2021 Hematocrit (Bld) [Volume fraction] 42.9 % 40-54 [facility] Work Phone: Laboratory - Chemistry and C hemistry - challengeon 04-17-2021 ALP [Catalytic activity/Vol] 68 U/L 45-117 [facility] Work Phone: ALT [Catalytic activity/Vol] 44 U/L 16-61 [facility] Work Phone: CO2 [Moles/Vol] 26.0 mmol/L 21.0-32.0 [facility] Work Phone: Globulin (S) [Mass/Vol] 3.9 g/dL 2.2-4.2 [facility] Work Phone: Urea nitrogen/Creatinine [Mass ratio] 18.5 mg/mg 10-20 [facility] Work Phone: Laboratory - Hematology and Cell countson 04-17-2021 Basophils/100 WBC (Unsp spec) 0.4 % 0-1 [facility] Work Phone: Erythrocyte distribution width (RBC) [Entitic vol] 38.5 fL 35.1-43.9 [facility] Work Phone: Erythrocyte distribution width (RBC) [Ratio] 11.6 % 11.6-14.6 [facility] Work Phone: Immature granulocytes/100 WBC (Bld) 0.300 % 0.0-0.9 [facility] Work Phone: Comment on above: IG% - Immature Granu locytes (promyelocytes, myelocytes and metamyelocytes) > 1% indicates that a LEFT SHIFT is Present. MCH (RBC) [Entitic mass] 30.7 pg 27.0-32.0 [facility] Work Phone: Neutrophils/100 WBC (Bld) 70.9 % 47-70 [facility] Work Phone: Nucleated RBC/100 WBC (Bld) [Ratio] 0 % 0-5 [facility] Work Phone: MCHC Auto (RBC) [Mass/Vol]on 04-17-2021 MCHC (RBC) [Mass/Vol] 34.0 g/dL 32-36 [facility] Work Phone: No Panel Informationon 04-17 Estimated GFR (MDRD) Amer 140 mL/min >60 [facility] Work Phone: Comment on above: GFR Calc Estimated GFR (MDRD) Non-Af Amer 116 mL/min >60 [facility] Work Phone: Comment on above: Non- GFR Calc Platelets bldon 04-17-2021 Platelets (Bld) [#/Vol] 257 10*3/uL 150-450 [facility] Work Phone: Serum or plasma albumin kiara urement (mass/volume)on 04-17-2021 Albumin [Mass/Vol] 3.9 g/dL 3.2-5.0 [facility] Work Phone: Serum or plasma albumin/glob ulin mass ratioon 04-17-2021 Albumin/Globulin [Mass ratio] 1.0 {ratio} 0.9-2.4 [facility] Work Phone: Serum or plasma calcium kiara urement (mass/volume)on 04-17-2021 Calcium [Mass/Vol] 9.5 mg/dL 8.5-10.1 [facility] Work Phone: Serum or plasma creatinine m easurement (mass/volume)on 04-17-2021 Creatinine [Mass/Vol] 0.76 mg/dL 0.70-1.30 [facility] Work Phone: Comment on above: The validity of the calculated GFR & GFRAA in patients over 70 years has not been determined. Clinical correlation is essential. Serum or plasma urea nitroge n measurement (mass/volume)on 04-17-2021 Urea nitrogen [Mass/Vol] 14 mg/dL 7-18 [facility] Work Phone: Thin prep Papanicolaou smear with manual screeningon 04-17-2021 Thin prep Papanicolaou smear with manual screening 28 U/L 15-37 [facility] Work Phone: Thin prep Papanicolaou smear with manual screening 9 5-15 [facility] Work Phone: Office Visiton 01-15-2017 Dietary management education, guidance, and counseling (procedure) yes Invalid Interpretation Code [employer] Work Phone: [phone] Documentation of current medications (procedure) Done Invalid Interpretation Code [employer] Work Phone: [phone] Lab Report: Lipid Profileon 12-05-2016 Cholesterol in HDL mass conc 55 mg/dL Invalid Interpretation Code [employer] [employer] Work Phone: [phone] Cholesterol in LDL mass conc 149 mg/dL High 0-130 [employer] Work Phone: [phone] Cholesterol mass conc 219 mg/dL High 200 [facility] [employer] Work Phone: [phone] Lipoprotein.pre-beta mass conc 15 mg/dL Invalid Interpretation Code 5-40 [employer] Work Phone: [phone] Triglyceride mass conc 75 mg/dL Invalid Interpretation Code [employer] [employer] Work Phone: [phone] Lab Report: Liver Profileon 12-05-2016 Albumin mass conc 3.8 g/dL Invalid Interpretation Code 3.4-5.0 [employer] Work Phone: [phone] Alkaline phosphatase (ALP) 104 U/L Invalid Interpretation Code 45-117 [employer] Work Phone: [phone] ALP enzyme act/vol (Bld) 104 U/L 45-117 [facility] [employer] Work Phone: [phone] ALT enzyme act/vol 70 U/L Invalid Interpretation Code 12-78 [employer] Work Phone: [phone] enzyme act/vol 41 U/L High 15-37 [facility] Work Phone: [phone] Bilirubin mass conc 0.70 mg/dL Invalid Interpretation Code 0.20-1.00 [facility] Work Phone: [phone] Bilirubin.direct mass conc 0.19 mg/dL Invalid Interpretation Code 0.00-0.30 [facility] Work Phone: [phone] Globulin 4.0 g/dL High 2.3-3.5 [facility] Work Phone: [phone] Globulin mass conc (S) 4.0 g/dL High 2.3-3.5 [facility] Work Phone: [phone] Protein mass conc 7.8 g/dL Invalid Interpretation Code 6.4-8.2 [facility] Work Phone: [phone] External Other: Preferred Me thod of Contacton 12-02-2016 [employer] secmsg Invalid Interpretation Code [facility] Work Phone: [phone] Patient's prefered method of contact secmsg Invalid Interpretation Code [facility] Work Phone: [phone] Office Visiton 12-02-2016 Dietary management education, guidance, and counseling (procedure) yes Invalid Interpretation Code [facility] Work Phone: [phone] Documentation of current medications (procedure) Done Invalid Interpretation Code [facility] Work Phone: [phone] Protein mass conc Done [facility] Work Phone: [phone] Replaced Document: Andresranjit E CG Observationson 12-02-2016 EKG QRS axis -36 deg Invalid Interpretation Code [facility] Work Phone: [phone] electrocardiogram interpretation Sinus Rhythm Low voltage in limb leads. -Left axis. -Left atrial enlargement. ABNORMAL Invalid Interpretation Code [facility] Work Phone: [phone] GE use only - for [employer] import when terms are not otherwise specified 390 ms Invalid Interpretation Code [facility] Work Phone: [phone] Interpretation Sinus Rhythm Low vol tage in limb leads. -Left axis. -Left atrial enlargement. ABNORMAL Invalid Interpretation Code [facility] Work Phone: P [place] 31 deg Invalid Interpretation Code [facility] Work Phone: P wave axis, electrocardiogram 31 deg Invalid Interpretation Code [facility] Work Phone: MO Interval 166 ms Invalid Interpretation Code [facility] Work Phone: MO interval, electrocardiogram 166 ms Invalid Interpretation Code [facility] Work Phone: [phone] Pulse (Heart Rate) 74 /min Invalid Interpretation Code [facility] Work Phone: QRS axis, electrocardiogram -36 deg Invalid Interpretation Code [facility] Work Phone: QRS Duration 94 ms Invalid Interpretation Code [facility] Work Phone: QRS duration, electrocardiogram 94 ms Invalid Interpretation Code [facility] Work Phone: QT Interval new path ms Invalid Interpretation Code [facility] Work Phone: QT interval, electrocardiogram new path ms Invalid Interpretation Code [facility] Work Phone: QTc [place] 390 ms Invalid Interpretation Code [facility] Work Phone: T [place] 25 deg Invalid Interpretation Code [facility] Work Phone: [phone] T wave axis, electrocardiogram 25 deg Invalid Interpretation Code [facility] Work Phone: [phone] Office Visiton 11-18-2016 Documentation of current medications (procedure) Done Invalid Interpretation Code [facility] [employer] Work Phone: Fall risk assessment No Invalid Interpretation Code [facility] [employer] Work Phone: Protein mass conc Done [facility] Work Phone: [phone] Tobacco smoking status NHIS Current Invalid Interpretation Code [facility] [employer] Work Phone: Tobacco smoking status NHIS Former smoker [facility] Work Phone: [phone] Tobacco use [facility] Former smoker Invalid Interpretation Code [facility] [employer] Work Phone: Lab Report: GAMon 08-18-2013 GE use only - for [employer] import when terms are not otherwise specified 65 mg/dL Normal 40-230 [facility] [employer] Work Phone: IgG 1003 mg/dL Normal 700-1600 [facility] [employer] Work Phone: IMM 65 mg/dL Normal 40-230 [facility] Work Phone: Lab Report: ECBCDon 08-18-19 14 Absolute Neutrophil count 3.5 X10 3/UL Normal 2.0-7.7 [facility] [employer] Work Phone: ANC 3.5 X10 3/UL Normal 2.0-7.7 [facility] Work Phone: Basophils/100 leukocytes 1.3 % High 0-1 [facility] [employer] Work Phone: Basophils/100 WBC (Bld) 1.3 % High 0-1 [facility] Work Phone: Eosinophils/100 leukocytes 2.9 % Normal 0-5 [facility] [employer] Work Phone: Eosinophils/100 WBC (Bld) 2.9 % Normal 0-5 [facility] Work Phone: Erythrocyte distribution width Ratio (RBC) 12.0 % Normal 11.6-14.6 [facility] Work Phone: Erythrocytes (RBC) 4.95 10*6/uL Normal 4.6-6.2 [facility] [employer] Work Phone: Hematocrit (HCT) 45.3 % Normal 40-54 [facility] [employer] Work Phone: Hematocrit Volume Fraction (Bld) 45.3 % Normal 40-54 [facility] Work Phone: Hemoglobin (HGB) 15.2 g/dL Normal 13.0-16.5 [facility] [employer] Work Phone: Lymphocytes/100 leukocytes 38.2 % Normal 19-41 [facility] [employer] Work Phone: Lymphocytes/100 WBC (Bld) 38.2 % Normal 19-41 [facility] Work Phone: MCH 30.6 pg Normal 27.0-32.0 [facility] [employer] Work Phone: MCH Entitic mass (RBC) 30.6 pg Normal 27.0-32.0 [facility] Work Phone: MCHC 33.5 g/dL Normal 32-36 [facility] [employer] Work Phone: MCHC mass conc (RBC) 33.5 g/dL Normal 32-36 [facility] Work Phone: MCV 91.5 fL Normal 80-94 [facility] [employer] Work Phone: MCV Entitic volume (RBC) 91.5 fL Normal 80-94 [facility] Work Phone: Monocytes/100 leukocytes 10.4 % High 0-10 [facility] [employer] Work Phone: Monocytes/100 WBC (Bld) 10.4 % High 0-10 [facility] Work Phone: Neutrophils/100 leukocytes 47.3 % Normal 47-70 [facility] [employer] Work Phone: Neutrophils/100 WBC (Bld) 47.3 % Normal 47-70 [facility] Work Phone: Platelet mean volume Entitic volume (Bld) 7.3 fL Normal 6.2-12.0 [facility] Work Phone: Platelets 204 10*3/mm3 Normal 150-450 [facility] [employer] Work Phone: Platelets #/vol (Bld) 204 10*3/mm3 Normal 150-450 [facility] Work Phone: PMV by Irma 7.3 fL Normal 6.2-12.0 [facility] [employer] Work Phone: RBC #/vol (Bld) 4.95 10*6/uL Normal 4.6-6.2 [facility] Work Phone: RDW-CA 12.0 % Normal 11.6-14.6 [facility] [employer] Work Phone: WBC #/vol (Bld) 7.4 10*3/uL Normal 4.4-11.0 [facility] Work Phone: WBC (Leukocytes) 7.4 10*3/uL Normal 4.4-11.0 [facility] [employer] Work Phone: Lab Report: ERYon 08-11-2013 KATIE 7.4 m[iU]/mL Normal 2.6-18.5 [facility] Work Phone: [phone] erythropoietin, serum 7.4 m[iU]/mL Normal 2.6-18.5 [facility] [employer] Work Phone: Lab Report: TRFon 08-11-2013 Transferrin 249 mg/dL Normal 200-370 [facility] [employer] Work Phone: Lab Report: B12on 08-05-2013 Cobalamin (Vitamin B12) mass conc 623 pg/mL Normal 211-911 [facility] Work Phone: [phone] vitamin b12, serum 623 pg/mL Normal 211-911 [facility] [employer] Work Phone: Lab Report: RETICon 08-06-19 14 Reticulocytes/100 erythrocytes 1.25 % Normal 0.5-1.5 [facility] [employer] Work Phone: Reticulocytes/100 RBC (Bld) 1.25 % Normal 0.5-1.5 [facility] Work Phone: [phone] Lab Report: SEDon 08-05-2013 Erythrocyte sedimentation rate 9 mm/h Normal 0-15 [facility] [employer] Work Phone: Replaced Document: CMPon Alanine aminotransferase (ALT) 91 U/L High 12-78 [facility] [employer] Work Phone: Albumin 3.6 g/dL Normal 3.4-5.0 [facility] [employer] Work Phone: [phone] Albumin/Globulin Ratio 0.9 {ratio} Normal 0.9-2.4 [facility] [employer] Work Phone: Alkaline phosphatase (ALP) 92 U/L Normal 50-136 [facility] [employer] Work [phone] ALP enzyme act/vol (Bld) 92 U/L Normal 50-136 [facility] Work Phone: Anion gap 6 mmol/L Normal 5-15 [facility] [employer] Work Phone: Anion gap molar conc 6 mmol/L Normal 5-15 [facility] Work Phone: Aspartate aminotransferase (AST) 54 U/L High 15-37 [facility] [employer] Work Phone: Bilirubin (total) 0.40 mg/dL Normal 0.00-1.00 [facility] [employer] Work Phone: BUN/Creatinine Ratio 16.0 RATIO Normal 10-20 [facility] [employer] Work Phone: Calcium 9.4 mg/dL Normal 8.5-10.1 [facility] [employer] Work Phone: Chloride 107 mmol/L Normal 98-107 [facility] [employer] Work Phone: CO2 25.0 mmol/L Normal 21.0-32.0 [facility] [employer] Work Phone: CO2 ppres (BldV) 25.0 mmol/L Normal 21.0-32.0 [facility] Work Phone: [phone] Creatinine 1.0 mg/dL Normal 0.8-1.3 [facility] [employer] Work Phone: eGFR (non-black) 105 mL/min/{1.73_m2} Normal >60 [facility] [employer] Work Phone: eGFR (non-black) 87 mL/min/{1.73_m2} Normal >60 [facility] [employer] Work Phone: GFRAA 105 mL/min Normal >60 [facility] Work Phone: [phone] Globulin 3.9 g/dL Normal 2.7-4.2 [facility] [employer] Work Phone: Globulin mass conc (S) 3.9 g/dL Normal 2.7-4.2 [facility] Work Phone: Glucose 97 mg/dL Normal 70-110 [facility] [employer] Work Phone: Glucose mass conc 97 mg/dL Normal 70-110 [facility] Work Phone: Potassium 3.7 mmol/L Normal 3.5-5.1 [facility] Work Phone: Protein 7.5 g/dL Normal 6.4-8.2 [facility] Work Phone: Sodium 138 mmol/L Normal 136-145 [facility] Work Phone: Urea nitrogen 16 mg/dL Normal 7-18 [facility] Work Phone: Replaced Document: FERon Ferritin 989 ng/mL High 26-388 [facility] Work Phone: Replaced Document: FOLon Folate 28.60 ng/mL High 3.1-17.5 [facility] Work Phone: Replaced Document: IBCon Iron 76 ug/dL Normal 65-175 [facility] Work Phone: iron binding capacity, total 287 ug/dL Normal 250-450 [facility] Work Phone: Replaced Document: LDHon Lactate dehydrogenase (LDH) 192 U/L Normal 84-246 [facility] Work Phone: Vital Signs Date Time Vital Sign Value Performing Clinician Facility 11-03-2024 10:25-0400 Body temperature 98.3 [degF] Dr. Jovanny Gillette MD Work Phone: [facility] 11-03-2024 10:25-0400 Diastolic blood pressure 80 mm[Hg] Dr. Jovanny Gillette MD Work Phone: [facility] 11-03-2024 10:25-0400 Heart rate 72 /min Dr. Jovanny Gillette MD Work Phone: [facility] 11-03-2024 10:25-0400 Respiratory rate 17 /min Dr. Jovanny Gillette MD Work Phone: [facility] 11-03-2024 10:25-0400 SaO2% (BldA) [Mass fraction] 98 % Dr. Jovanny Gillette MD Work Phone: [facility] 11-03-2024 10:25-0400 Systolic blood pressure 142 mm[Hg] Dr. Jovanny Gillette MD Work Phone: [facility] 01-07-2022 14:13-0400 Body temperature 97.9 [degF] Dr. Jovanny Gillette Work Phone: [facility] Work Phone: 01-07-2022 14:13-0400 Diastolic blood pressure 85 mm[Hg] Dr. Jovanny Gillette Work Phone: [facility] Work Phone: 01-07-2022 14:13-0400 Heart rate 79 /min Dr. Jovanny Gillette Work Phone: [facility] Work Phone: 01-07-2022 14:13-0400 Respiratory rate 16 /min Dr. Jovanny Gillette Work Phone: [facility] Work Phone: 01-07-2022 14:13-0400 SaO2% (BldA) [Mass fraction] 97 % Dr. Jovanny Gillette Work Phone: [facility] Work Phone: 01-07-2022 14:13-0400 Systolic blood pressure 141 mm[Hg] Dr. Jovanny Gillette Work Phone: [facility] Work Phone: 01-07-2022 11:36-0400 Body height 167.[address] Jovanny Gillette Work Phone: [facility] Work Phone: 01-07-2022 11:36-0400 Body mass index (BMI) [Ratio] 36.6 kg/m2 Dr. Jovanny Gillette Work Phone: [facility] Work Phone: 01-07-2022 11:36-0400 Body weight [address] Jovanny Gillette Work Phone: [facility] Work Phone: 09-10-2021 12:05-0400 Body temperature 98.2 [degF] Dr. Jovanny Gillette Work Phone: [facility] Work Phone: 09-10-2021 12:05-0400 Diastolic blood pressure 70 mm[Hg] Dr. Jovanny Gillette Work Phone: [facility] Work Phone: 09-10-2021 12:05-0400 Heart rate 78 /min Dr. Jovanny Gillette Work Phone: [facility] Work Phone: 09-10-2021 12:05-0400 Respiratory rate 16 /min Dr. Jovanny Gillette Work Phone: [facility] Work Phone: 09-10-2021 12:05-0400 SaO2% (BldA) [Mass fraction] 98 % Dr. Jovanny Gillette Work Phone: [facility] Work Phone: 09-10-2021 12:05-0400 Systolic blood pressure 128 mm[Hg] Dr. Jovanny Gillette Work Phone: [facility] Work Phone: 09-09-2021 15:18-0400 Body height 167.[address] Jovanny Gillette Work Phone: [facility] Work Phone: 09-09-2021 15:18-0400 Body weight 102.[address] Jovanny Gillette Work Phone: [facility] Work Phone: 09-09-2021 09:23-0400 Body mass index (BMI) [Ratio] 36.4 kg/m2 Dr. Jovanny Gillette Work Phone: [facility] Work Phone: 09-05-2021 22:52-0400 Body temperature 98 [degF] [facility] Work Phone: 09-05-2021 22:52-0400 Diastolic blood pressure 71 mm[Hg] [facility] Work Phone: 09-05-2021 22:52-0400 Heart rate 81 /min [facility] Work Phone: 09-05-2021 22:52-0400 Respiratory rate 16 /min [facility] Work Phone: 09-05-2021 22:52-0400 SaO2% (BldA) [Mass fraction] 98 % [facility] Work Phone: 09-05-2021 22:52-0400 Systolic blood pressure 124 mm[Hg] [facility] Work Phone: 09-05-2021 20:34-0400 Body height 167.64 cm [facility] Work Phone: 09-05-2021 20:34-0400 Body mass index (BMI) [Ratio] 35.5 kg/m2 [facility] Work Phone: 09-05-2021 20:34-0400 Body weight 99.79 kg [facility] Work Phone: 01-15-2017 12:54-0400 BMI (Body Mass Index) 35.61 kg/m2 [facility] Work Phone: 01-15-2017 12:54-0400 BP Diastolic 62 mm[Hg] [facility] Work Phone: 01-15-2017 12:54-0400 BP Systolic 108 mm[Hg] [facility] Work Phone: 01-15-2017 12:54-0400 Height 165.1 cm [facility] Work Phone: 01-15-2017 12:54-0400 Pulse (Heart Rate) 70 /min [facility] Work Phone: 01-15-2017 12:54-0400 Respiratory Rate 18 /min [facility] Work Phone: 01-15-2017 12:54-0400 Weight 97.07 kg [facility] Work Phone: 12-02-2016 14:12-0400 Heart rate 74 /min [facility] Work Phone: 12-02-2016 13:06-0400 BMI (Body Mass Index) 37.27 kg/m2 [facility] Work Phone: 12-02-2016 13:06-0400 BP Diastolic 80 mm[Hg] [facility] Work Phone: 12-02-2016 13:06-0400 BP Systolic 138 mm[Hg] [facility] Work Phone: 12-02-2016 13:06-0400 Height 165.1 cm [facility] Work Phone: 12-02-2016 13:06-0400 Pulse (Heart Rate) 72 /min [facility] Work Phone: 12-02-2016 13:06-0400 Respiratory Rate 18 /min [facility] Work Phone: 12-02-2016 13:06-0400 Weight 101.61 kg [facility] Work Phone: 11-18-2016 08:00-0400 BMI (Body Mass Index) 36.67 kg/m2 Renny Santana MD [facility] Work Phone: 11-18-2016 08:00-0400 Body Temperature 98.2 [degF] Renny Santana MD [facility] Work Phone: 11-18-2016 08:00-0400 BP Diastolic 80 mm[Hg] Renny Santana MD [facility] Work Phone: 11-18-2016 08:00-0400 BP Systolic 127 mm[Hg] Renny Santana MD [facility] Work Phone: 11-18-2016 08:00-0400 Height 165.1 cm Renny Santana MD [facility] Work Phone: 11-18-2016 08:00-0400 Pulse (Heart Rate) 75 /min Renny Santana MD [facility] Work Phone: 11-18-2016 08:00-0400 Respiratory Rate 20 /min Renny Santana MD [facility] Work Phone: 11-18-2016 08:00-0400 Weight 99.97 kg Renny Santana MD [facility] Work Phone: Encounters Encounter Date Encounter Type Care Provider Facility Start: 05-17-2025 ambulatory Augie Ramsey [facility] Start: 01-19-2025 End: 01-19-[address] Jovanny Gillette MD Work Phone: [facility] Start: 01-19-2025 End: 01-19-[address] Marion Zaragoza MD -[facility] [place] Work Phone: Start: 01-19-2025 End: 01-19-2025 [facility] Start: 11-03-2024 End: 11-03-2024 Patient encounter procedure Armando Sutton [place] -[facility] Work Phone: Start: 11-03-2024 End: 11-03-[address] Jovanny Gillette MD Work Phone: [facility] Work Phone: Start: 10-26-2024 End: 10-26-[address] Jovanny Gillette MD Work Phone: [facility] Work Phone: Start: 10-26-2024 End: 10-26-[address] Marion Zaragoza MD -[facility] [place] Work Phone: Start: 10-26-2024 End: 10-26-2024 ambulatory Jovanny Gillette Facility:[facility] Start: 08-16-2024 End: 08-16-[address] Jovanny Gillette MD Work Phone: [facility] Work Phone: Start: 08-16-2024 End: 08-16-[address] Marion Zaragoza MD -[facility] Work Phone: Start: 08-16-2024 End: 08-16-2024 ambulatory Jovanny Gillette Facility:[facility] Start: 07-15-2024 End: 07-15-[address] Jovanny Gillette MD Work Phone: [facility] Work Phone: Start: 07-15-2024 End: 07-15-[address] Jovanny Gillette MD -[facility] Work Phone: Start: 07-15-2024 End: 07-15-2024 ambulatory Marion Zaragoza Facility:[facility] Start: 12-09-2022 End: 12-09-2022 ambulatory [facility] Work Phone: Start: 12-09-2022 End: 12-09-2022 Patient encounter procedure [facility] Work Phone: Start: 06-13-2022 End: 06-13-2022 ambulatory [facility] Work Phone: Start: 06-13-2022 End: 06-13-2022 Patient encounter procedure [facility] Start: 05-30-2022 End: 05-30-2022 ambulatory [facility] Work Phone: Start: 05-30-2022 End: 05-30-2022 Patient encounter procedure [facility] Start: 02-05-2022 End: 02-05-[address] Jovanny Gillette Work Phone: [facility] Work Phone: Start: 02-05-2022 End: 02-05-[address] Jovanny Gillette Work Phone: [facility] Start: 01-07-2022 Non-patient / Non-visit Dr. Saúl Gillette Work Phone: [facility] Start: 01-07-2022 End: 01-07-2022 Admission to same day surgery center Dr. Jovanny [place] Work Phone: [facility] Start: 12-12-2021 End: 12-12-[address] Jovanny Gillette Work Phone: [facility] Start: 09-24-2021 End: 09-24-[address] Jovanny Gillette Work Phone: [facility] Start: 09-10-2021 Non-patient / Non-visit Dr. Saúl Gillette Work Phone: [facility] Start: 09-10-2021 Non-patient / Non-visit Dr. Saúl Gillette Work Phone: [facility] Start: 09-09-2021 Non-patient / Non-visit Dr. Saúl Gillette Work Phone: [facility] Start: 09-09-2021 Non-patient / Non-visit Dr. Saúl Gillette Work Phone: [facility] Start: 09-08-2021 Non-patient / Non-visit Dr. Saúl Gillette Work Phone: [facility] Start: 09-08-2021 Non-patient / Non-visit Dr. Saúl Gillette Work Phone: [facility] Start: 09-07-2021 Non-patient / Non-visit Dr. Saúl Gillette Work Phone: [facility] Start: 09-07-2021 Non-patient / Non-visit Dr. Saúl Gillette Work Phone: [facility] Start: 09-07-2021 Non-patient / Non-visit [facility] Saúl Gillette [facility] Start: 09-06-2021 Non-patient / Non-visit Dr. Saúl Gillette Work Phone: [facility] Start: 09-06-2021 Non-patient / Non-visit Dr. Saúl Gillette Work Phone: [facility] Start: 09-05-2021 Non-patient / Non-visit Dr. Saúl Gillette Work Phone: [facility] Start: 09-05-2021 End: 09-10-2021 Evaluation and management of inpatient [facility] Start: 07-23-2021 End: 07-23-2021 [facility] Start: 04-17-2021 Patient encounter procedure [facility] Procedures Date Procedure Procedure Detail Performing Clinician Start: 08-16-2024 In-vitro immunologic test Dr. Jovanny Gillette MD Work Phone: Comment on above: QuantiFERON-TB Gold Plus is a qualitativ e indirect test forM tuberculosis infection (including disease) and isintended for use in conjunction with risk assessment,radiography, and other medical and diagnostic evaluations.The QuantiFERON-TB Gold Plus result is determined bysubtracting the Nil value from either TB antigen (Ag)value. The Mitogen tube serves as a control for the test. No response to M tub erculosis antigens detected.Infection with M tuberculosis is unlikely, but high riskindividuals should be considered for additional testing(ATS/IDSA/CDC Clinical Practice Guidelines, 2017). Thereference range is an Antigen minus Nil result of <0.35IU/mL.The specimen received for QuantiFERON testing was incubatedby the ordering institution. Specific procedures outlinedin our Directory of Services and in the package insert forthe QuantiFERON Gold (In Tube) test must be followed toenable for proper stimulation of cells for the productionof interferon gamma. Chemiluminescence immunoassaymethodologyPerformed at: [facility] [id number] [place], [place] [id number] Director: Waylon Gil PhD, Phone: [phone] Start: 01-07-[address] Jovanny Gillette Work Phone: Start: 01-07-[address] Jovanny Gillette Work Phone: Start: 09-09-2021 Total cholecystectomy and exploration of common bile duct Dr. Jovanny Gillette Work Phone: Start: 09-06-2021 End: 09-06-[address] Jovanny Gillette Work Phone: Start: 09-06-[address] Jovanny Gillette Work Phone: Start: 09-05-2021 US scan of gallbladder Start: 12-02-2016 End: 12-05-2016 *Hepatic Function Panel Abelardo Jamison MD Work Phone: Start: 12-02-2016 End: 12-02-2016 DJN Abelardo Jamison MD Work Phone: Start: 12-02-2016 End: 01-07-2017 Ecg routine ecg w/least 12 lds w/i&r Allen danical Garfield Jamison MD Work Phone: Start: 12-02-2016 End: 01-07-2017 Echocardiography Abelardo Jamison MD Work Phone: Start: 12-02-2016 End: 12-02-2016 Follow Up Appt 1 month Abelardo Jamison MD Work Phone: Start: 12-02-2016 End: 12-05-2016 Lipid 1996 panel - Serum or Plasma Nikhil Jamison MD Work Phone: Start: 12-02-2016 End: 12-24-2016 Stress Echocardiogram (treadmill) Abelardo Jamison MD Work Phone: Start: 12-02-2016 End: 12-02-2016 Dietary management education, guidance, and counseling Inna Castle Start: 12-02-2016 End: 12-05-2016 *Hepatic Function Panel Abelardo Jamison MD Work Phone: Start: 12-02-2016 End: 12-02-2016 DJN Abelardo Jamison MD Work Phone: Start: 12-02-2016 End: 01-07-2017 Echocardiography Abelardo Jamison MD Work Phone: Start: 12-02-2016 End: 01-07-2017 Electrocardiogram, complete Abelardo Jamison MD Work Phone: Start: 12-02-2016 End: 12-02-2016 Follow Up Appt 1 month Abelardo Jamison MD Work Phone: Start: 12-02-2016 End: 12-05-2016 Lipid panel [AGGREGATE] Abelardo Jamison MD Work Phone: Start: 12-02-2016 End: 12-24-2016 Stress Echocardiogram (treadmill) Abelardo Jamison MD Work Phone: Start: 11-18-2016 Screening for malignant neoplasm of colon Screening, colon ca Neetu Moss RN History of cholecystectomy S/P l aparoscopic cholecystectomy Dr. Jovanny Gillette Work Phone: Plan of Treatment Date Care Activity Detail Author Start: 01-07-2022 Ercp balloon dilate biliary/panc duct/ampulla ea ERCP EA DUCT/AMPULLA DILATE [facility] Work Phone: Start: 01-07-2022 Ercp remove calculi/debris biliary/pancreas duct ERCP REMOVE DUCT CALCULI [facility] Work Phone: Start: 01-07-2022 Ercp remove foreign body/stent biliary/panc duct ERCP REMOVE FORGN BODY DUCT [facility] Work Phone: Start: 01-07-2022 Patient discharge [facility] Work Phone: Start: 09-10-2021 Patient discharge [facility] Work Phone: Start: 09-05-2021 End: 09-06-2021 [facility] Work Phone: Start: 09-05-2021 Following clinical pathway protocol [facility] Work Phone: Start: 09-05-2021 Ambulation without limitation [facility] Work Phone: Start: 09-05-2021 Application of intermittent pneumatic compression device [facility] Work Phone: Start: 09-05-2021 Assessment of risk of venous thromboembolism [facility] Work Phone: Start: 09-05-2021 Inhalation therapy procedure [facility] Work Phone: Start: 09-05-2021 Insertion of catheter into peripheral vein [facility] Work Phone: Start: 09-05-2021 Providing care according to standard [facility] Work Phone: Start: 09-05-2021 Referral to gastroenterology service [facility] Work Phone: Start: 09-05-2021 Referral to general surgeon [facility] Work Phone: Start: 09-05-2021 Admission procedure [facility] Work Phone: Start: 07-23-2017 End: 07-23-2017 Appointment Appointment [facility] Work Phone: Start: 01-27-2017 End: 12-16-2016 *Hepatic Function Panel *Hepatic Function Panel [facility] Work Phone: Start: 01-27-2017 End: 12-16-2016 Lipid panel [AGGREGATE] *Lipid Profile CC PCP [facility] Work Phone: Start: 01-27-2017 End: 12-16-2016 *Hepatic Function Panel *Hepatic Function Panel [facility] Work Phone: Start: 01-27-2017 End: 12-16-2016 Lipid panel [AGGREGATE] *Lipid Profile CC PCP [facility] Work Phone: Start: 01-15-2017 End: 01-15-2017 Appointment Appointment [facility] Work Phone: Start: 01-15-2017 End: 01-15-2017 SMILEY RIVERAAdrien [facility] Work Phone: Start: 01-15-2017 End: 01-15-2017 Follow Up Appt 6 months Follow Up Appt 6 months [facility] Work Phone: Start: 01-15-2017 End: 01-15-2017 SMILEY REIS [facility] Work Phone: Start: 01-15-2017 End: 01-15-2017 Follow Up Appt 6 months Follow Up Appt 6 months [facility] Work Phone: Start: 12-02-2016 End: 12-05-2016 *Hepatic Function Panel *Hepatic Function Panel [facility] Work Phone: Start: 12-02-2016 End: 12-02-2016 Appointment Appointment [facility] Work Phone: Start: 12-02-2016 End: 12-02-2016 SMILEY REIS [facility] Work Phone: Start: 12-02-2016 End: 01-07-2017 Ecg routine ecg w/least 12 lds w/i&r EKG (In office) [facility] Work Phone: Start: 12-02-2016 End: 12-02-2016 Echocardiography Echocardiogram (complete) [facility] Work Phone: Start: 12-02-2016 End: 12-02-2016 Follow Up Appt 1 month Follow Up Appt 1 month [facility] Work Phone: Start: 12-02-2016 End: 12-05-2016 Lipid panel [AGGREGATE] *Lipid Profile CC PCP [facility] Work Phone: Start: 12-02-2016 End: 12-02-2016 Stress Echocardiogram (treadmill) Stress Echocardiogram (treadmill) [facility] Work Phone: Start: 12-02-2016 End: 12-05-2016 *Hepatic Function Panel *Hepatic Function Panel [facility] Work Phone: Start: 12-02-2016 End: 12-02-2016 DJN DJAdrien [facility] Work Phone: Start: 12-02-2016 End: 12-24-2016 Echocardiography Echocardiogram (complete) [facility] Work Phone: Start: 12-02-2016 End: 01-07-2017 Electrocardiogram, complete EKG (In office) [facility] Work Phone: Start: 12-02-2016 End: 12-02-2016 Follow Up Appt 1 month Follow Up Appt 1 month [facility] Work Phone: Start: 12-02-2016 End: 12-05-2016 Lipid panel [AGGREGATE] *Lipid Profile CC PCP [facility] Work Phone: Start: 12-02-2016 End: 12-02-2016 Stress Echocardiogram (treadmill) Stress Echocardiogram (treadmill) [facility] Work Phone: Start: 11-18-2016 End: 11-19-2016 Colonoscopy flx dx w/collj spec when pfrmd Colonoscopy [facility] Work Phone: Start: 11-18-2016 End: 11-19-2016 Diagnostic colonoscopy Colonoscopy [facility] Work Phone: Patient Education CHOLESTEROL%20 AND%20YOUR %20HEALTH [facility] Work Phone: Patient referral [facility] Work Phone: Immunizations Immunization Date Immunization Notes Care Provider Fa cili 04-10-2021 Covid (Pfizer) Dr. Jovanny baker Work Phone: [facility] 11-08-2020 Covid (Pfizer) Dr. Jovanny Barber h Work Phone: [facility] 10-09-2020 Covid (Pfizer) Dr. Jovanny baker Work Phone: [facility] Payers Date Payer Category Payer Unknown [id number] 2024 Self-pay [id number] 2016 Unknown [id number] Unknown [id number] Unknown [id number] [id number] Unknown [id number] [id number] Unknown [id number] [id number] Unknown [id number] [id number] Unknown [id number] [id number] [id number] Unknown [id number] [id number] [id number] Social History Date Type Detail Facility Start: 11-30-2020 End: 01-02-2022 Tobacco smoking status CAIS Unknown if ever smoked [facility] Start: 1970 Sex Assigned At Male [facility] Start: 01-02-2022 [facility] Start: 07-26-2024 End: 08-19-2024 Sex Male (finding) [facility] Sex Male [facility] Medical Equipment Procedure Code Equipment Code Equipment Original Text Equipment Identifier Dates Total cholecystectomy with exploration of common bile duct KIM PITTS LG FDA Start: 09-09-2021 Total cholecystectomy with exploration of common bile duct Ligation clip, synthetic polymer, non-bioabsorbable [id number] FDA Start: 09-09-2021 Total cholecystectomy with exploration of common bile duct KIM PITTS LG FDA Start: 09-09-2021 Total cholecystectomy with exploration of common bile duct CLIP,HEMOLOCK LG WECK FDA Start: 09-09-2021 Total cholecystectomy with exploration of common bile duct CLIP,KIM COLINDRES FDA Start: 09-09-2021 Total cholecystectomy with exploration of common bile duct CLIP,KIM COLINDRES FDA Start: 09-09-2021 Total cholecystectomy with exploration of common bile duct CLIP,KIM COLINDRES FDA Start: 09-09-2021 Total cholecystectomy with exploration of common bile duct CLIP,KIM COLINDRES FDA Start: 09-09-2021 Total cholecystectomy with exploration of common bile duct CLIP,KIM COLINDRES FDA Start: 09-09-2021 Total cholecystectomy with exploration of common bile duct CLIP,KIM COLINDRES FDA Start: 09-09-2021 Total cholecystectomy with exploration of common bile duct CLIP,KIM COLINDRES FDA Start: 09-09-2021 Total cholecystectomy with exploration of common bile duct CLIP,KIM COLINDRES FDA Start: 09-09-2021 Total cholecystectomy with exploration of common bile duct CLIP,KIM COLINDRES FDA Start: 09-09-2021 ERCP (endoscopic retrograde cholangiopancreatograph y) RX STENT/10 X 5CM FDA Start: 09-06-2021 ERCP (endoscopic retrograde cholangiopancreatograph y) RX STENT/10 X 5CM FDA Start: 09-06-2021 ERCP (endoscopic retrograde cholangiopancreatograph y) RX STENT/10 X 5CM FDA Start: 09-06-2021 ERCP (endoscopic retrograde cholangiopancreatograph y) RX STENT/10 X 5CM FDA Start: 09-06-2021 ERCP (endoscopic retrograde cholangiopancreatograph y) RX STENT/10 X 5CM FDA Start: 09-06-2021 ERCP (endoscopic retrograde cholangiopancreatograph y) RX STENT/10 X 5CM FDA Start: 09-06-2021 ERCP (endoscopic retrograde cholangiopancreatograph y) RX STENT/10 X 5CM FDA Start: 09-06-2021 ERCP (endoscopic retrograde cholangiopancreatograph y) RX STENT/10 X 5CM FDA Start: 09-06-2021 ERCP (endoscopic retrograde cholangiopancreatograph y) RX STENT/10 X 5CM FDA Start: 04-29-2022 ERCP (endoscopic retrograde cholangiopancreatograph y) RX STENT/10 X 5CM FDA Start: 09-06-2021 ERCP (endoscopic retrograde cholangiopancreatograph y) RX STENT/10 X 5CM FDA Start: 09-06-2021 ERCP (endoscopic retrograde cholangiopancreatograph y) RX STENT/10 X 5CM FDA Start: 09-06-2021 Goals Date Patient Goal Desired Activity /State Functional Status Date Assessment Result Facility 09-10-2021 Functional status Chair [facility] Work Phone: Mental Status Date Assessment Result Facility 01-07-2022 Cognitive function Voice/Name [facility] Work Phone: 09-10-2021 Cognitive function Voice/Name [facility] Work Phone: Evaluation note 11-03-2024 Note Date & Type Note Facility 11-03-2024 Evaluation note Diagnosis Onset Date Resolution Right flank discomfort acute Ju ne 2024 10:15am [facility] Work Phone: Evaluation note Note Date & Type Note Facility Evaluation note No assessment information availa [facility] Work Phone: Evaluation note Note Date & Type Note Facility Evaluation note Diagnosis Onset Date Acute gallstone pancreatitis acute Choledocholithiasis with acute cholecystitis acute [facility] Work Phone: Evaluation note Note Date & Type Note Facility Evaluation note Diagnosis Onset Date S/P ERCP acute S/P laparoscopic cholecystectomy acute Acute gallstone pancreatitis resolved Choledocholithiasis with acute cholecystitis resolved [facility] Work Phone: Evaluation note Note Date & Type Note Facility Evaluation note Diagnosis Onset Date S/P ERCP acute S/P laparoscopic cholecystectomy acute Acute gallstone pancreatitis resolved Choledocholithiasis with acute cholecystitis resolved S/P laparoscopic cholecystectomy acute [facility] Work Phone: Hospital Discharge instructions Note Date & Type Note Facility Hospital Discharge instructions [facility] Work Phone: Reason for referral (narrative) Note Date & Type Note Facility Reason for referral (narrative) No reason for referral information available [facility] Work Phone: Chief Complaint and Reason for Visit Chief Complaint ARTHRITIS/PAIN- COPY PCP ARTHRITIS/PAIN- COPY PCP Chief Complaint ARTHRITIS/PAIN- COPY PCP ACUTE GALLBLADDER PANCREATITIS Reason for Visit Acute gallstone panc reatitis Choledocholithiasis with acute cholecystitis Chief Complaint ARTHRITIS/PAIN- COPY PCP ACUTE GALLBLADDER PANCREATITIS ACUTE GALLBLADDER PANCREATITIS ACUTE GALLBLADDER PANCREATITIS ACUTE GALLBLADDER PANCREATITIS ACUTE GALLBLADDER PANCREATITIS ACUTE GALLBLADDER PANCREATITIS ACUTE GALLBLADDER PANCREATITIS ACUTE GALLBLADDER PANCREATITIS ACUTE GALLBLADDER PANCREATITIS ACUTE GALLBLADDER PANCREATITIS ACUTE GALLBLADDER PANCREATITIS ACUTE GALLBLADDER PANCREATITIS ACUTE GALLBLADDER PANCREATITIS ACUTE GALLBLADDER PANCREATITIS Reason for Visit S/P ERCP S/P laparoscopic cholecystectomy Acute gallstone pancreatitis Choledocholithiasis with acute cholecystitis Chief Complaint ACUTE GALLBLADDER PA NCREATITIS ACUTE GALLBLADDER PANCREATITIS ACUTE GALLBLADDER PANCREATITIS ACUTE GALLBLADDER PANCREATITIS ACUTE GALLBLADDER PANCREATITIS ACUTE GALLBLADDER PANCREATITIS ACUTE GALLBLADDER PANCREATITIS ACUTE GALLBLADDER PANCREATITIS ACUTE GALLBLADDER PANCREATITIS ACUTE GALLBLADDER PANCREATITIS ACUTE GALLBLADDER PANCREATITIS ACUTE GALLBLADDER PANCREATITIS ACUTE GALLBLADDER PANCREATITIS ACUTE GALLBLADDER PANCREATITIS GALLBLADDER PANCREATITIS 3 PAIN- COPY PCP Reason for Visit S/P ERCP S/P laparoscopic cholecystectomy Acute gallstone pancreatitis Choledocholithiasis with acute cholecystitis S/P laparoscopic cholecystectomy Chief Complaint PAIN- COPY PCP Chief Complaint Admit Date [facility] LABS TO July 15, 2024 8:33am Chief Complaint Admit Date [facility] TO July 15, 2024 8:33am PAIN- COPY PCP August 16, 2024 9:36 am Chief Complaint Admit Date [facility] TO July 15, 2024 8:33am PAIN- COPY PCP August 16, 2024 9:36 am PAIN- COPY PCP October 26, 2024 9:35 am RT SIDE PAIN November 03, 2024 10:1 5am Reason for Visit Admit Date Right flank discomfort November 03, 2024 1 0:15am Chief Complaint Admit Date PAIN- COPY PCP October 26, 2024 9:35 am RT SIDE PAIN November 03, 2024 10:1 5am Pain January 19, 2025 11:19am Family History No Family History Records Found Relationship Condition Age at Onset Recorded Date/T mayelin father Coronary artery disease Unknown mother Malignant neoplasm of colon Unknown Advance Directives No Advanced Directives Records Found Advance Directive Response Recorded Date/ Time Living Will No November 30, 2020 8:18am 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 No November 30 8:18am Advance Directive Response Recorded Date/ Time Living Will No September 05, 2021 8:44pm 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 No September 05 8:44pm Advance Directive Response Recorded Date/ Time Living Will Yes September 05, 2021 11:11pm 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 No September 05 11:11pm Advance Directive Response Recorded Date/ Time Living Will Yes January 02 10:27am 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 No January 02 10:27am Advance Directive Response Recorded Date/ Time Living Will Yes January 02 9:27am 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 No January 02 9:27am Summary Purpose Additional Source Comments Goals (unrecognized section and content) Goals may be documented in a n alternate sectionGoals may be documented in an alternate sectionGoals may be documented in an alternate sectionGoals may be documented in an alternate sectionGoals may be documented in an alternate sectionGoals may be documented in an alternate sectionGoals may be documented in an alternate sectionGoals may be documented in an alternate sectionGoals may be documented in an alternate sectionGoals may be documented in an alternate sectionGoals may be documented in an alternate sectionGoals may be documented in an alternate section Care Teams (unrecognized sec tion and content) Team Status: Active Member Role Status Dates Dr. Jovanny Gillette MD Family Provider Active Dr. Jovanny Gillette MD Primary Care Provider Active Team Status: Inactive Member Role Status Dates Dr. Jovanny Gillette MD Primary Care Provide r, Attending Provider, Referring Provider Active Team Status: Inactive Member Role Status Dates Dr. Jovanny Gillette MD Primary Care Provider Active Dr. Marion Zaragoza MD Attending Provider, Referring Provider Active Team Status: Inactive Member Role Status Dates Dr. Jovanny Gillette MD Primary Care Provider Active Start: July 15, 2024 End: July 15, 2024 Dr. Jovanny Gillette MD Attending Provider Active St art: July 15, 2024 End: July 15, 2024 Dr. Jovanny Gillette MD Referring Provider Active St art: July 15, 2024 End: July 15, 2024 Dr. Marion Zaragoza MD Other Provider Active St art: July 15, 2024 End: July 15, 2024 Team Status: Inactive Member Role Status Dates Dr. Jovanny Gillette MD Primary Care Provider Active Start: August 16, 2024 End: August 16, 2024 Dr. Marion Zaragoza MD Attending Provider Active Start: August 16, 2024 End: August 16, 2024 Dr. Marion Zaragoza MD Referring Provider Active Start: August 16, 2024 End: August 16, 2024 Team Status: Active Member Role Status Dates Dr. Jovanny Gillette MD Primary Care Provider Active Start: October 26, 2024 Dr. Marion Zaragoza MD Attending Provider Active Start: October 26, 2024 Dr. Marion Zaragoza MD Referring Provider Active Start: October 26, 2024 Team Status: Inactive Member Role Status Dates Dr. Jovanny Gillette MD Primary Care Provider Active Start: November 03, 2024 End: November 03, 2024 Dr. Jovanny Gillette MD Referring Provider Active St art: November 03, 2024 End: November 03, 2024 KASH Marte Attending Provider Active Sta rt: November 03, 2024 End: November 03, 2024 Team Status: Inactive Member Role Status Dates Dr. Jovanny Gillette MD Primary Care Provider Active Start: October 26, 2024 End: October 26, 2024 Dr. Marion Zaragoza MD Attending Provider Active Start: October 26, 2024 End: October 26, 2024 Dr. Marion Zaragoza MD Referring Provider Active Start: October 26, 2024 End: October 26, 2024 Team Status: Active Member Role/Relationship Status Dates Dr. Jovanny Gillette MD Primary care physician Active Team Status: Inactive Member Role/Relationship Status Dates Dr. Jovanny Gillette MD Primary care physician Active Start: October 26, 2024 End: October 26, 2024 Dr. Marion Zaragoza MD Attending physician Active Start: October 26, 2024 End: October 26, 2024 Dr. Marion Zaragoza MD Referring Provider Active Start: October 26, 2024 End: October 26, 2024 Team Status: Inactive Member Role/Relationship Status Dates Dr. Jovanny Gillette MD Primary care physician Active Start: November 03, 2024 End: November 03, 2024 Dr. Jovanny Gillette MD Referring Provider Active St art: November 03, 2024 End: November 03, 2024 KASH Marte Attending physician Active St art: November 03, 2024 End: November 03, 2024 Team Status: Inactive Member Role/Relationship Status Dates Dr. Jovanny Gillette MD Primary care physician Active Start: January 19, 2025 End: January 19, 2025 Dr. Marion Zaragoza MD Attending physician Active Start: January 19, 2025 End: January 19, 2025 Dr. Marion Zaragoza MD Referring Provider Active Start: January 19, 2025 End: January 19, 2025 (unrecognized sect ion and content) No Status Records Found INFORMATION SOURCE (unrecogn ized section and content) DATE CREATED AUTHOR 03/19/2025 [facility] FOR RECORDS PERTAINING TO PATIENTS WHO ARE OR HAVE BEEN ENROLLED IN A CHEMICAL DEPENDENCY/SUBSTANCEABUSE PROGRAM, SOME INFORMATION MAY BE OMITTED. This clinical summary was aggregated from multiple sources. Caution should be exercised in using it in the provision of clinical care. This summary normalizes information from multiple sources, and as a consequence, information in this document may materially change the coding, format and clinical context of patient data. In addition, data may be omitted in some cases. CLINICAL DECISIONS SHOULD BE BASED ON THE PRIMARY CLINICAL RECORDS. [employer] provides no warranty or guarantee of the accuracy or completeness of information in this document.
[2025-04-07 11:57] LABS: Hematocrit 41.7 % (40-54); Hemoglobin 14.1 g/dL (13.0-16.5); Immature Granulocytes Count 0.040 X10^3/uL (0.0-0.0); Mean Corp Hgb Conc 33.8 g/dL (32-36); Mean Corpuscular Volume 92.3 fL (80-94); Mean Platelet Vol. 9.1 fl (6.2-12.0); NRBC Flagged by Analyzer 0 % (0-5); Platelet Count 232 K/mm3 (150-450); RBC Distribution Width CV 11.9 % (11.6-14.6); RBC Distribution Width SD 40.0 fl (35.1-43.9); Red Blood Count 4.52 M/mm3 (4.6-6.2); White Blood Count 10.6 K/mm3 (4.4-11.0)
[2025-04-07 12:47] LABS: AST(SGOT) 32 U/L (<=37); Alanine Aminotransfer ALT/SGPT 35 U/L (<=46); Albumin, Serum 4.3 g/dL (3.5-5.0); Alkaline Phosphatase 71 U/L (40-129); Anion Gap 11 (5-15); BUN 17 mg/dL (4-19); BUN/Creat Ratio 19.2 RATIO (10-20); Calcium,Total 9.6 mg/dL (7.6-11.0); Carbon Dioxide 26.2 mmol/L (21.0-32.0); Chloride 104 mmol/L (98-108); Globulin 3.2 g/dL (2.2-4.2); Glucose 80 mg/dL (70-99); PSA,Total - Annual Screen 0.53 ng/mL (0.02-4.00); Potassium 3.9 mmol/L (3.3-5.1)
== END | disposition home or self-care (01) ==
PROVIDERS: PCP Family Medicine; Referring Provider Family Medicine; Visit Provider Family Medicine
DX: Z12.5 Encounter for screening for malignant neoplasm of prostate (principal); I10 Essential (primary) hypertension
CPT/HCPCS: 36415; 80053; 84153; 85025; G0103